=== PATIENT | female | born 1940 | race Hispanic/Latino ===

== ENCOUNTER 2019-04-27 18:39 | Emergency (ER) | payer MEDICARE ==
[~2019-04-27] VITALS: Ht 152.4 cm; Wt 79.8 kg
--- OUTSIDE RECORDS SUMMARY | 2019-04-27 18:42 | XMS REPORT ---
[facility] Address Unknown Phone Unavailable Care Team Providers Care Test Deck Supervisor Name Role Phone Unavailable Unavailable Payers Payer Name Policy Type Policy Number Effective Date Expiration Date Problems This patient has no known problems. Allergies, Adverse Reactions, Alerts Allergy Name Allergy Type Status Severity Reaction(s) Onset Date Inactive Date Treating Clinician Comments No Known Allergies DA Active U 2019-04-12 00:00:00 No Known Allergies DA Active U 2019-03-28 00:00:00 No Known Allergies DA Active U 2018-09-06 00:00:00 No Known Allergies DA Active U 2018-08-09 00:00:00 No Known Allergies DA Active U 2018-04-18 00:00:00 No Known Allergies DA Active U 2017-09-27 00:00:00 No Known Allergies DA Active U 2017-09-22 00:00:00 Medications This patient has no known medications. Results Test Description Test Time Test Comments Text Results Atomic Results Result Comments - CT ABD PELVIS W/CONT 2019-04-12 14:42:00 Name: JENARO MORA [facility] : 1940 Age/S: 78 / F [address] Unit #: [id number] Loc: [address] [address] Phys: Kenny Stephens DO Acct: [id number] Dis Date: Status: DEP ER PHONE #: [phone] Exam Date: 04/12/2019 1426 FAX #: [phone] Reason: LLQ pain/diarrhea EXAMS: CPT CODE: [id number] CT ABD PELVIS W/CONT 50217 REASON FOR EXAM: LLQ pain/diarrhea EXAM ORDER DATE: 04/12/2019 11:46 AM Ordering: Kenny Stephens DO Attending:Kenny Stephens DO Location:[facility] PROCEDURE: - CT ABD PELVIS W/CONT COMPARISON: FINDINGS: CT images of the abdomen and pelvis were obtained with IV and without oral contrast at 5mm. Dose modulation, iterative reconstruction, and/or weight based adjustment of the MA/KV was utilized to reduce the radiation dose to as low as reasonably achievable. Intravenous contrast: 100cc of Omnipaque 370. The spleen and pancreas are grossly within normal limits. The patient is status post cholecystectomy. 2 cm cyst in the midpole of the left kidney. The urinary bladder is unremarkable. The colon, small bowel, and stomach are within normal limits without evidence of obstruction. The appendix is not seen No evidence of free air or free fluid. The patient is status post hysterectomy IMPRESSION: Paraesophageal hernia. Subcentimeter lesions within the liver suggestive of hepatic cysts. Minimal stranding of the mesenteric fat in the left lower quadrant associated with minimal thickening of the wall of the sigmoid colon/left colon suggestive of acute diverticulitis without evidence of abscess Electronically Signed by Elba Dallas on 11/2018 at 1442 Reported and signed by: Joseph Dallas M.D. PAGE 1 Signed Report (CONTINUED) Name: JENARO MORA [facility] : 1940 Age/S: 78 / F [address] Unit #: [id number] Loc: [address] [address] Phys: Kenny Stephens DO Acct: [id number] Dis Date: Status: DEP ER PHONE #: [phone] Exam Date: 04/12/2019 1426 FAX #: [phone] Reason: LLQ pain/diarrhea EXAMS: CPT CODE: [id number] CT ABD PELVIS W/CONT 18116 <Continued> CC: Kenny Stephens DO Technologist:Chastity Gauthier,RT(R),CT CTDI: DLP: Trnscb Date/Time: 04/12/2019 (8322) Darrell Orig Print D/T: S: 04/12/2019 (4736) PAGE 2 Signed Report - CT ABD PELVIS W/CONT 2019-04-12 14:42:00 Name: JENARO MORA [facility] : 1940 Age/S: 78 / F [address] [facility] Unit #: [id number] Loc: [address] [address] Phys: Kenny Stephens DO Acct: [id number] Dis Date: Status: REG ER PHONE #: [phone] Exam Date: 04/12/2019 1426 FAX #: [phone] Reason: LLQ pain/diarrhea EXAMS: CPT CODE: [id number] CT ABD PELVIS W/CONT 39893 REASON FOR EXAM: LLQ pain/diarrhea EXAM ORDER DATE: 04/12/2019 11:46 AM Ordering: Kenny Stephens DO Attending:Kenny Stephens DO Location:[facility] PROCEDURE: - CT ABD PELVIS W/CONT COMPARISON: FINDINGS: CT images of the abdomen and pelvis were obtained with IV and without oral contrast at 5mm. Dose modulation, iterative reconstruction, and/or weight based adjustment of the MA/KV was utilized to reduce the radiation dose to as low as reasonably achievable. Intravenous contrast: 100cc of Omnipaque 370. The spleen and pancreas are grossly within normal limits. The patient is status post cholecystectomy. 2 cm cyst in the midpole of the left kidney. The urinary bladder is unremarkable. The colon, small bowel, and stomach are within normal limits without evidence of obstruction. The appendix is not seen No evidence of free air or free fluid. The patient is status post hysterectomy IMPRESSION: Paraesophageal hernia. Subcentimeter lesions within the liver suggestive of hepatic cysts. Minimal stranding of the mesenteric fat in the left lower quadrant associated with minimal thickening of the wall of the sigmoid colon/left colon suggestive of acute diverticulitis without evidence of abscess Electronically Signed by Elba Dallas on 11/2018 at 1442 Reported and signed by: Joseph Dallas M.D. PAGE 1 Signed Report (CONTINUED) Name: JENARO MORA [facility] : 1940 Age/S: 78 / F [address] Unit #: [id number] Loc: [address] [address] Phys: Kenny Stephens DO Acct: [id number] Dis Date: Status: REG ER PHONE #: [phone] Exam Date: 04/12/2019 1426 FAX #: [phone] Reason: LLQ pain/diarrhea EXAMS: CPT CODE: [id number] CT ABD PELVIS W/CONT 63846 <Continued> CC: Kenny Stephens DO Technologist:Chastity Gauthier,RT(R),CT CTDI: DLP: Trnscb Date/Time: 04/12/2019 (1442) MahoganyL Orig Print D/T: S: 04/12/2019 (3466) PAGE 2 Signed Report BASIC METABOLIC PANEL 2019-04-12 13:52:00 SODIUM (test code=NA) 144 mmol/L 136-145 POTASSIUM (test code=K) 3.6 mmol/L 3.5-5.1 CHLORIDE (test code=CL) 112.0 mmol/L 98-107 CARBON DIOXIDE (test code=CO2) 24.0 mmol/L 21-32 ANION GAP (test code=GAP) 11.6 10-20 GLUCOSE (test code=GLU) 97 mg/dL 74-106 BLOOD UREA NITROGEN (test code=BUN) 16 mg/dL 7-18 GLOMERULAR FILTRATION RATE (test code=GFR) 54 mL/min >=60 Estimated GFR by using Modified MDRD formula.Chronic kidney disease is defined as either kidney damageor GFR <60 mL/min/1.73 m2 for >3 months. CREATININE (test code=CREAT) 1.00 mg/dL 0.55-1.02 Note change in reference range due to change in reagent. BUN/CREATININE RATIO (test code=BUN/CREA) 15.8 10-20 CALCIUM (test code=CA) 8.4 mg/dL 8.5-10.1 .KN2 04/12/19 1217HEPATIC FUNCTION [id number] 13:52:00* Test Item Value Reference Range Comments TOTAL PROTEIN (test code=PROT) 6.7 gram/dL 6.4-8.2 ALBUMIN (test code=ALB) 3.0 g/dL 3.4-5.0 GLOBULIN (test code=GLOB) 3.7 gram/dL 2.7-4.2 ALBUMIN/GLOBULIN RATIO (test code=A/G) 0.8 0.75-1.50 BILIRUBIN TOTAL (test code=BILT) 0.50 mg/dL 0.0-1.0 BILIRUBIN DIRECT (test code=BILD) 0.14 mg/dL 0.0-0.20 SGOT/AST (test code=AST) 8 IUnit/L 15-37 SGPT/ALT (test code=ALT) 13 IUnit/L 12-78 ALKALINE PHOSPHATASE TOTAL (test code=ALKP) 98 IUnit/L 45-117 Note change in reference range due to change in reagent. .[facility] 04/12/19 [id number] 13:52:00* Test Item Value Reference Range Comments LIPASE (test code=LIP) 59 U/L 73.0-393.0 .[facility] 04/12/19 [id number] 13:52:00* Test Item Value Reference Range Comments TROPONIN-I (test code=TROPI) <0.015 ng/mL 0-0.045 .[facility] 04/12/197BASIC METABOLIC [id number] 13:16:00* Test Item Value Reference Range Comments SODIUM (test code=NA) 144 mmol/L 136-145 POTASSIUM (test code=K) 3.6 mmol/L 3.5-5.1 CHLORIDE (test code=CL) 112.0 mmol/L 98-107 CARBON DIOXIDE (test code=CO2) mmol/L 21-32 ANION GAP (test code=GAP) 10-20 GLUCOSE (test code=GLU) mg/dL 74-106 BLOOD UREA NITROGEN (test code=BUN) mg/dL 7-18 GLOMERULAR FILTRATION RATE (test code=GFR) mL/min >=60 CREATININE (test code=CREAT) mg/dL 0.55-1.02 BUN/CREATININE RATIO (test code=BUN/CREA) 10-20 CALCIUM (test code=CA) mg/dL 8.5-10.1 .[facility] 04/12/19 1217HEPATIC FUNCTION [id number] 13:16:00* Test Item Value Reference Range Comments TOTAL PROTEIN (test code=PROT) gram/dL 6.4-8.2 ALBUMIN (test code=ALB) g/dL 3.4-5.0 GLOBULIN (test code=GLOB) gram/dL 2.7-4.2 ALBUMIN/GLOBULIN RATIO (test code=A/G) 0.75-1.50 BILIRUBIN TOTAL (test code=BILT) mg/dL 0.0-1.0 BILIRUBIN DIRECT (test code=BILD) mg/dL 0.0-0.20 SGOT/AST (test code=AST) IUnit/L 15-37 SGPT/ALT (test code=ALT) IUnit/L 12-78 ALKALINE PHOSPHATASE TOTAL (test code=ALKP) IUnit/L 45-117 .[facility] 04/12/19 [id number] 13:16:00* Test Item Value Reference Range Comments LIPASE (test code=LIP) U/L 73.0-393.0 .[facility] 04/12/[id number] 13:16:00* Test Item Value Reference Range Comments TROPONIN-I (test code=TROPI) ng/mL 0-0.045 .[facility] 04/12/197URINALYSIS [id number] 12:13:00* Test Item Value Reference Range Comments UA COLOR (test code=COLU) Light-Yellow YELLOW UA APPEARANCE (test code=APPU) Cloudy CLEAR UA GLUCOSE DIPSTICK (test code=DGLUU) NEGATIVE mg/dL NEGATIVE UA BILIRUBIN DIPSTICK (test code=BILU) NEGATIVE mg/dL NEGATIVE UA KETONE DIPSTICK (test code=KETU) NEGATIVE mg/dL NEGATIVE UA SPECIFIC GRAVITY (test code=SGU) 1.011 1.001-1.035 UA BLOOD DIPSTICK (test code=JEFF) 0.1 mg/dL (1+) mg/dL NEGATIVE UA PH DIPSTICK (test code=JAYESH) 5.5 5.0-8.0 UA PROTEIN DIPSTICK (test code=PROU) NEGATIVE mg/dL NEGATIVE UA UROBILINIOGEN DIPSTICK (test code=URO) Normal mg/dL NEGATIVE UA NITRITE DIPSTICK (test code=TRICIA) NEGATIVE NEGATIVE UA LEUKOCYTE ESTERASE W REFLEX (test code=LEUUR) 250 Hernan/uL (2+) Hernan/uL NEGATIVE UA WBC (test code=WBCU) 11-20 per HPF 0-5 UA RBC (test code=RBCU) 0-2 #/HPF 0-5 UA EPITHELIAL CELLS (test code=EPIU) FEW per HPF FEW UA BACTERIA (test code=BACU) MODERATE #/HPF NONE UA MUCUS (test code=MUCU) FEW #/LPF FEW Urine Source? Clean CatchCBC W/O [id number] 11:54:00* Test Item Value Reference Range Comments WHITE BLOOD CELL (test code=WBC) 6.5 K/mm3 4.5-12.5 RED BLOOD CELL (test code=RBC) 4.19 mill/mm3 3.7-5.2 HEMOGLOBIN (test code=HGB) 12.3 gram/dL 11.5-15.5 HEMATOCRIT (test code=HCT) 36.3 % 36.0-46.0 MEAN CELL VOLUME (test code=MCV) 86.6 fL 80-98 MEAN CELL HGB (test code=MCH) 29.4 picogram 27.0-33.0 MEAN CELL HGB CONCETRATION (test code=MCHC) 33.9 gram/dL 33.0-36.0 RED CELL DISTRIBUTION WIDTH (test code=RDW) 13.5 % 11.6-16.2 PLATELET COUNT (test code=PLT) 216 K/mm3 150-450 MEAN PLATELET VOLUME (test code=MPV) 10.5 fL 6.7-11.0 CBC W/O [id number] 11:43:00* Test Item Value Reference Range Comments WHITE BLOOD CELL (test code=WBC) K/mm3 4.5-12.5 RED BLOOD CELL (test code=RBC) mill/mm3 3.7-5.2 HEMOGLOBIN (test code=HGB) 12.3 gram/dL 11.5-15.5 HEMATOCRIT (test code=HCT) 36.3 % 36.0-46.0 MEAN CELL VOLUME (test code=MCV) fL 80-98 MEAN CELL HGB (test code=MCH) picogram 27.0-33.0 MEAN CELL HGB CONCETRATION (test code=MCHC) gram/dL 33.0-36.0 RED CELL DISTRIBUTION WIDTH (test code=RDW) % 11.6-16.2 PLATELET COUNT (test code=PLT) K/mm3 150-450 MEAN PLATELET VOLUME (test code=MPV) fL 6.7-11.0 [id number] 11:59:00* Test Item Value Reference Range Comments GLUBED (test code=GLUBED) 93 mg/dL 74-106 Performed by certified food production machine operator at [facility] - CT HEAD/BRAIN W/O [id number] 11:58:00 Name: JENARO MORA [facility] : 1940 Age/S: 78 / F [address] Unit #: [id number] Loc: [address] [address] Phys: Heidy Russell MD Acct: [id number] Dis Date: 03/29/2019 Status: DIS IN PHONE #: [phone] Exam Date: 03/28/2019 1147 FAX #: [phone] Reason: dizziness EXAMS: CPT CODE: [id number] CT HEAD/BRAIN W/O CONT 72115 HISTORY: Dizziness. COMPARISON: None available. CT brain without contrast: Automated exposure control. No acute intracranial bleeds or extra-axial collections are noted. No acute territorial vascular infarction is noted. The sulci, gyri, ventricles and subarachnoid spaces and the basilar cisterns are normal for patient's age. No herniation or hydrocephalus or midline shift is noted. Mild periventricular ischemic gliosis is noted. Age-appropriate atrophy is noted as well. Portions of the visualized paranasal sinuses are normal. Mild otomastoiditis on the right side. No obvious bony calvarial defect is noted. IMPRESSION: No acute intracranial bleeds or extra-axial collections. No acute territorial vascular infarction. No herniation or hydrocephalus or midline shift. Chronic white matter ischemic disease and atrophy . at 1158 Reported and signed by: Panchito Davis M.D. CC: Heidy Villarreal MD; Jeromy Baez MD Technologist:Loly Gauthier RT(R)(CT) CTDI: DLP: Trnscb Date/Time: 03/28/2019 (1158) t.[email or web address] .TH4 Orig Print D/T: S: 03/28/2019 (2099) PAGE 1 Signed Report - CT HEAD/BRAIN W/O [id number] 11:58:00 Name: JENARO MORA [facility] : 1940 Age/S: 78 / F [address] Unit #: [id number] Loc: [address] [address] Phys: Heidy Russell MD Acct: [id number] Dis Date: Status: REG ER PHONE #: [phone] Exam Date: 03/28/2019 1147 FAX #: [phone] Reason: dizziness EXAMS: CPT CODE: [id number] CT HEAD/BRAIN W/O CONT 90301 HISTORY: Dizziness. COMPARISON: None available. CT brain without contrast: Automated exposure control. No acute intracranial bleeds or extra-axial collections are noted. No acute territorial vascular infarction is noted. The sulci, gyri, ventricles and subarachnoid spaces and the basilar cisterns are normal for patient's age. No herniation or hydrocephalus or midline shift is noted. Mild periventricular ischemic gliosis is noted. Age-appropriate atrophy is noted as well. Portions of the visualized paranasal sinuses are normal. Mild otomastoiditis on the right side. No obvious bony calvarial defect is noted. IMPRESSION: No acute intracranial bleeds or extra-axial collections. No acute territorial vascular infarction. No herniation or hydrocephalus or midline shift. Chronic white matter ischemic disease and atrophy . at 1158 Reported and signed by: Panchito Davis M.D. CC: Heidy Russell MD; Jeromy Baez MD Technologist:Loly Gauthier RT(R)(CT) CTDI: DLP: Trnscb Date/Time: 03/28/2019 (1968) [email or web address] Orig Print D/T: S: 03/28/2019 (2242) PAGE 1 Signed Report BASIC METABOLIC [id number] 11:52:00* Test Item Value Reference Range Comments SODIUM (test code=NA) 141 mmol/L 136-145 POTASSIUM (test code=K) 3.7 mmol/L 3.5-5.1 CHLORIDE (test code=CL) 109.0 mmol/L 98-107 CARBON DIOXIDE (test code=CO2) 23.0 mmol/L 21-32 ANION GAP (test code=GAP) 12.7 10-20 GLUCOSE (test code=GLU) 122 mg/dL 74-106 BLOOD UREA NITROGEN (test code=BUN) 19 mg/dL 7-18 GLOMERULAR FILTRATION RATE (test code=GFR) > 60 mL/min >=60 Estimated GFR by using Modified MDRD formula.Chronic kidney disease is defined as either kidney damageor GFR <60 mL/min/1.73 m2 for >3 months. CREATININE (test code=CREAT) 0.90 mg/dL 0.55-1.02 Note change in reference range due to change in reagent. BUN/CREATININE RATIO (test code=BUN/CREA) 21.1 10-20 CALCIUM (test code=CA) 9.1 mg/dL 8.5-10.1 [id number] 11:52:00* Test Item Value Reference Range Comments TROPONIN-I (test code=TROPI) <0.015 ng/mL 0-0.045 URINALYSIS [id number] 11:52:00* Test Item Value Reference Range Comments UA COLOR (test code=COLU) Light-Yellow YELLOW UA APPEARANCE (test code=APPU) Cloudy CLEAR UA GLUCOSE DIPSTICK (test code=DGLUU) NEGATIVE mg/dL NEGATIVE UA BILIRUBIN DIPSTICK (test code=BILU) NEGATIVE mg/dL NEGATIVE UA KETONE DIPSTICK (test code=KETU) NEGATIVE mg/dL NEGATIVE UA SPECIFIC GRAVITY (test code=SGU) 1.014 1.001-1.035 UA BLOOD DIPSTICK (test code=JEFF) 0.03 mg/dL (Trace) mg/dL NEGATIVE UA PH DIPSTICK (test code=JAYESH) 6.5 5.0-8.0 UA PROTEIN DIPSTICK (test code=PROU) NEGATIVE mg/dL NEGATIVE UA UROBILINIOGEN DIPSTICK (test code=URO) Normal mg/dL NEGATIVE UA NITRITE DIPSTICK (test code=TRICIA) POSITIVE NEGATIVE UA LEUKOCYTE ESTERASE W REFLEX (test code=LEUUR) 250 Hernan/uL (2+) Hernan/uL NEGATIVE UA WBC (test code=WBCU) 6-10 per HPF 0-5 UA RBC (test code=RBCU) 0-2 #/HPF 0-5 UA EPITHELIAL CELLS (test code=EPIU) MOD per HPF FEW UA BACTERIA (test code=BACU) MANY #/HPF NONE UA MUCUS (test code=MUCU) FEW #/LPF FEW Urine Source? Clean CatchBASIC METABOLIC [id number] 11:41:00* Test Item Value Reference Range Comments SODIUM (test code=NA) 141 mmol/L 136-145 POTASSIUM (test code=K) 3.7 mmol/L 3.5-5.1 CHLORIDE (test code=CL) 109.0 mmol/L 98-107 CARBON DIOXIDE (test code=CO2) mmol/L 21-32 ANION GAP (test code=GAP) 10-20 GLUCOSE (test code=GLU) mg/dL 74-106 BLOOD UREA NITROGEN (test code=BUN) mg/dL 7-18 GLOMERULAR FILTRATION RATE (test code=GFR) mL/min >=60 CREATININE (test code=CREAT) mg/dL 0.55-1.02 BUN/CREATININE RATIO (test code=BUN/CREA) 10-20 CALCIUM (test code=CA) mg/dL 8.5-10.1 [id number] 11:41:00* Test Item Value Reference Range Comments TROPONIN-I (test code=TROPI) ng/mL 0-0.045 CBC W/O [id number] 11:30:00* Test Item Value Reference Range Comments WHITE BLOOD CELL (test code=WBC) 6.0 K/mm3 4.5-12.5 RED BLOOD CELL (test code=RBC) 4.84 mill/mm3 3.7-5.2 HEMOGLOBIN (test code=HGB) 14.0 gram/dL 11.5-15.5 HEMATOCRIT (test code=HCT) 41.2 % 36.0-46.0 MEAN CELL VOLUME (test code=MCV) 85.1 fL 80-98 MEAN CELL HGB (test code=MCH) 28.9 picogram 27.0-33.0 MEAN CELL HGB CONCETRATION (test code=MCHC) 34.0 gram/dL 33.0-36.0 RED CELL DISTRIBUTION WIDTH (test code=RDW) 13.3 % 11.6-16.2 PLATELET COUNT (test code=PLT) 276 K/mm3 150-450 MEAN PLATELET VOLUME (test code=MPV) 10.2 fL 6.7-11.0 URINALYSIS [id number] 11:18:00* Test Item Value Reference Range Comments UA COLOR (test code=COLU) Light-Yellow YELLOW UA APPEARANCE (test code=APPU) Cloudy CLEAR UA GLUCOSE DIPSTICK (test code=DGLUU) NEGATIVE mg/dL NEGATIVE UA BILIRUBIN DIPSTICK (test code=BILU) NEGATIVE mg/dL NEGATIVE UA KETONE DIPSTICK (test code=KETU) NEGATIVE mg/dL NEGATIVE UA SPECIFIC GRAVITY (test code=SGU) 1.014 1.001-1.035 UA BLOOD DIPSTICK (test code=JEFF) 0.03 mg/dL (Trace) mg/dL NEGATIVE UA PH DIPSTICK (test code=JAYESH) 6.5 5.0-8.0 UA PROTEIN DIPSTICK (test code=PROU) NEGATIVE mg/dL NEGATIVE UA UROBILINIOGEN DIPSTICK (test code=URO) Normal mg/dL NEGATIVE UA NITRITE DIPSTICK (test code=TRICIA) POSITIVE NEGATIVE UA LEUKOCYTE ESTERASE W REFLEX (test code=LEUUR) 250 Hernan/uL (2+) Hernan/uL NEGATIVE UA WBC (test code=WBCU) per HPF 0-5 UA RBC (test code=RBCU) per HPF 0-5 UA EPITHELIAL CELLS (test code=EPIU) per HPF Few UA BACTERIA (test code=BACU) per HPF NONE Urine Source? Clean CatchBASIC METABOLIC [id number] 07:10:00* Test Item Value Reference Range Comments SODIUM (test code=NA) 143 mmol/L 136-145 POTASSIUM (test code=K) 3.7 mmol/L 3.5-5.1 CHLORIDE (test code=CL) 113.0 mmol/L 98-107 CARBON DIOXIDE (test code=CO2) 21.0 mmol/L 21-32 ANION GAP (test code=GAP) 12.7 10-20 GLUCOSE (test code=GLU) 98 mg/dL 74-106 BLOOD UREA NITROGEN (test code=BUN) 10 mg/dL 7-18 GLOMERULAR FILTRATION RATE (test code=GFR) > 60 mL/min >=60 Estimated GFR by using Modified MDRD formula.Chronic kidney disease is defined as either kidney damageor GFR <60 mL/min/1.73 m2 for >3 months. CREATININE (test code=CREAT) 0.80 mg/dL 0.55-1.02 Note change in reference range due to change in reagent. BUN/CREATININE RATIO (test code=BUN/CREA) 12.9 10-20 CALCIUM (test code=CA) 8.5 mg/dL 8.5-10.1 CBC W/AUTO [id number] 06:30:00* Test Item Value Reference Range Comments WHITE BLOOD CELL (test code=WBC) 5.0 K/mm3 4.5-12.5 RED BLOOD CELL (test code=RBC) 4.16 mill/mm3 3.7-5.2 HEMOGLOBIN (test code=HGB) 12.0 gram/dL 11.5-15.5 HEMATOCRIT (test code=HCT) 36.2 % 36.0-46.0 MEAN CELL VOLUME (test code=MCV) 87.0 fL 80-98 MEAN CELL HGB (test code=MCH) 28.8 picogram 27.0-33.0 MEAN CELL HGB CONCETRATION (test code=MCHC) 33.1 gram/dL 33.0-36.0 RED CELL DISTRIBUTION WIDTH (test code=RDW) 13.6 % 11.6-16.2 RED CELL DISTRIBUTION WIDTH SD (test code=RDW-SD) 42.8 fL 37.0-51.0 PLATELET COUNT (test code=PLT) 206 K/mm3 150-450 MEAN PLATELET VOLUME (test code=MPV) 10.4 fL 6.7-11.0 NEUTROPHIL % (test code=NT%) 57.1 % 39.0-69.0 IMMATURE GRANULOCYTE % (test code=IG%) 0.6 % 0.0-5.0 LYMPHOCYTE % (test code=LY%) 24.3 % 25.0-55.0 MONOCYTE % (test code=MO%) 11.0 % 0.0-10.0 EOSINOPHIL % (test code=EO%) 6.2 % 0.0-5.0 BASOPHIL % (test code=BA%) 0.8 % 0.0-1.0 NUCLEATED RBC % (test code=NRBC%) 0.0 % 0-0 NEUTROPHIL # (test code=NT#) 2.84 K/mm3 1.8-7.7 IMMATURE GRANULOCYTE # (test code=IG#) 0.03 x10 3/uL 0-0.03 LYMPHOCYTE # (test code=LY#) 1.21 K/mm3 1.0-5.0 MONOCYTE # (test code=MO#) 0.55 K/mm3 0-0.8 EOSINOPHIL # (test code=EO#) 0.31 K/mm3 0.0-0.5 BASOPHIL # (test code=BA#) 0.04 K/mm3 0.0-0.2 NUCLEATED RBC # (test code=NRBC#) 0.00 K/mm3 0.0-0.1 MANUAL DIFF REQUIRED (test code=MDIFF) NO CBC W/AUTO [id number] 06:25:00* Test Item Value Reference Range Comments WHITE BLOOD CELL (test code=WBC) K/mm3 4.5-12.5 RED BLOOD CELL (test code=RBC) mill/mm3 3.7-5.2 HEMOGLOBIN (test code=HGB) 12.0 gram/dL 11.5-15.5 HEMATOCRIT (test code=HCT) 36.2 % 36.0-46.0 MEAN CELL VOLUME (test code=MCV) fL 80-98 MEAN CELL HGB (test code=MCH) picogram 27.0-33.0 MEAN CELL HGB CONCETRATION (test code=MCHC) gram/dL 33.0-36.0 RED CELL DISTRIBUTION WIDTH (test code=RDW) % 11.6-16.2 RED CELL DISTRIBUTION WIDTH SD (test code=RDW-SD) fL 37.0-51.0 PLATELET COUNT (test code=PLT) K/mm3 150-450 MEAN PLATELET VOLUME (test code=MPV) fL 6.7-11.0 NEUTROPHIL % (test code=NT%) % 39.0-69.0 IMMATURE GRANULOCYTE % (test code=IG%) % 0.0-5.0 LYMPHOCYTE % (test code=LY%) % 25.0-55.0 MONOCYTE % (test code=MO%) % 0.0-10.0 EOSINOPHIL % (test code=EO%) % 0.0-5.0 BASOPHIL % (test code=BA%) % 0.0-1.0 NEUTROPHIL # (test code=NT#) K/mm3 1.8-7.7 LYMPHOCYTE # (test code=LY#) K/mm3 1.0-5.0 MONOCYTE # (test code=MO#) K/mm3 0-0.8 EOSINOPHIL # (test code=EO#) K/mm3 0.0-0.5 BASOPHIL # (test code=BA#) K/mm3 0.0-0.2 [id number] 02:16:00* Test Item Value Reference Range Comments TROPONIN-I (test code=TROPI) <0.015 ng/mL 0-0.045 COMMENTS TO LCAC OPERATOR: COLLECT 3 HOURS AFTER PREVIOUS [id number] 22:19:00* Test Item Value Reference Range Comments TROPONIN-I (test code=TROPI) <0.015 ng/mL 0-0.045 COMMENTS TO LCAC OPERATOR: COLLECT 3 HOURS AFTER PREVIOUS SAMPLEB-TYPE NATRIURETIC [id number] 20:20:00* Test Item Value Reference Range Comments B-TYPE NATRIURETIC PEPTIDE (test code=BNP) 57.22 pgram/mL 0-100 CBC W/O [id number] 18:16:00* Test Item Value Reference Range Comments WHITE BLOOD CELL (test code=WBC) 8.6 K/mm3 4.5-12.5 RED BLOOD CELL (test code=RBC) 4.52 mill/mm3 3.7-5.2 HEMOGLOBIN (test code=HGB) 13.3 gram/dL 11.5-15.5 HEMATOCRIT (test code=HCT) 39.9 % 36.0-46.0 MEAN CELL VOLUME (test code=MCV) 88.3 fL 80-98 MEAN CELL HGB (test code=MCH) 29.4 picogram 27.0-33.0 MEAN CELL HGB CONCETRATION (test code=MCHC) 33.3 gram/dL 33.0-36.0 RED CELL DISTRIBUTION WIDTH (test code=RDW) 13.7 % 11.6-16.2 PLATELET COUNT (test code=PLT) 238 K/mm3 150-450 MEAN PLATELET VOLUME (test code=MPV) 10.7 fL 6.7-11.0 - CT ABD PELVIS [id number] 17:56:00 Name: JENARO MORA [facility] : 1940 Age/S: 78 / F Harry Espinal Unit #: [id number] Loc: [address] [address] Phys: Ancelmo Hilario MD Acct: [id number] Dis Date: Status: REG ER PHONE #: [phone] Exam Date: 01/15/20191741 FAX #: [phone] Reason: abdominal pain EXAMS: CPT CODE: [id number] CT ABD PELVIS W/CONT 16468 EXAM: CT of the abdomen and pelvis with contrast; INFORMATION: Abdominal pain; TECHNIQUE AND FINDINGS: CT dose reduction protocol; 5 mm cuts through the abdomen and pelvis during and after intravenous infusion of contrast material. There are multiple sigmoid diverticula and there is mild wall thickening of the sigmoid without evidence of abscess information, perforation or bowel obstruction. The kidneys are of normal size and shape and without hydronephrosis. Several small cysts are seen bilaterally up to 15 mm in diameter. These include cortical and parapelvic cysts. Liver, spleen and pancreas are of normal size and shape; no focal lesions. Status post cholecystectomy; no biliary dilatation. Adrenal glands are unremarkable. No pelvic mass lesions. Status post hysterectomy with surgical clips posterior to the bladder. Scans through the lower chest show mild atelectatic changes and also demonstrate a moderately large hiatal hernia. IMPRESSION: 1. FINDINGS are suspicious for mild sigmoid diverticulitis without evidence of abscess formation, perforation or bowel obstruction. 2. Small bilateral renal cysts including parapelvic cysts. 3. Hiatal hernia. at 1756 Reported and signed by: Catalino Swain M.D. CC: Ancelmo Hilario MD Technologist:Rosy Morrell RT(R),CT; CTDI: DLP: Trnscb Date/Time: 01/15/2019 (1411) [email or web address] Orig Print D/T: S: 01/15/2019 (3741) PAGE 1 Signed Report BASIC METABOLIC [id number] 17:00:00* Test Item Value Reference Range Comments SODIUM (test code=NA) 143 mmol/L 136-145 POTASSIUM (test code=K) 3.8 mmol/L 3.5-5.1 CHLORIDE (test code=CL) 110.0 mmol/L 98-107 CARBON DIOXIDE (test code=CO2) 22.0 mmol/L 21-32 ANION GAP (test code=GAP) 14.8 10-20 GLUCOSE (test code=GLU) 91 mg/dL 74-106 BLOOD UREA NITROGEN (test code=BUN) 20 mg/dL 7-18 GLOMERULAR FILTRATION RATE (test code=GFR) 48 mL/min >=60 Estimated GFR by using Modified MDRD formula.Chronic kidney disease is defined as either kidney damageor GFR <60 mL/min/1.73 m2 for >3 months. CREATININE (test code=CREAT) 1.10 mg/dL 0.55-1.02 Note change in reference range due to change in reagent. BUN/CREATININE RATIO (test code=BUN/CREA) 18.0 10-20 CALCIUM (test code=CA) 9.4 mg/dL 8.5-10.1 [id number] 17:00:00* Test Item Value Reference Range Comments TROPONIN-I (test code=TROPI) <0.015 ng/mL 0-0.045 HEPATIC FUNCTION [id number] 17:00:00* Test Item Value Reference Range Comments TOTAL PROTEIN (test code=PROT) 7.5 gram/dL 6.4-8.2 ALBUMIN (test code=ALB) 3.5 g/dL 3.4-5.0 GLOBULIN (test code=GLOB) 4.0 gram/dL 2.7-4.2 ALBUMIN/GLOBULIN RATIO (test code=A/G) 0.9 0.75-1.50 BILIRUBIN TOTAL (test code=BILT) 0.40 mg/dL 0.0-1.0 BILIRUBIN DIRECT (test code=BILD) 0.10 mg/dL 0.0-0.20 SGOT/AST (test code=AST) 15 IUnit/L 15-37 SGPT/ALT (test code=ALT) 18 IUnit/L 12-78 ALKALINE PHOSPHATASE TOTAL (test code=ALKP) 118 IUnit/L 45-117 Note change in reference range due to change in reagent. [id number] 17:00:00* Test Item Value Reference Range Comments LIPASE (test code=LIP) 67 U/L 73.0-393.0 BASIC METABOLIC [id number] 16:46:00* Test Item Value Reference Range Comments SODIUM (test code=NA) 143 mmol/L 136-145 POTASSIUM (test code=K) 3.8 mmol/L 3.5-5.1 CHLORIDE (test code=CL) 110.0 mmol/L 98-107 CARBON DIOXIDE (test code=CO2) mmol/L 21-32 ANION GAP (test code=GAP) 10-20 GLUCOSE (test code=GLU) mg/dL 74-106 BLOOD UREA NITROGEN (test code=BUN) mg/dL 7-18 GLOMERULAR FILTRATION RATE (test code=GFR) mL/min >=60 CREATININE (test code=CREAT) mg/dL 0.55-1.02 BUN/CREATININE RATIO (test code=BUN/CREA) 10-20 CALCIUM (test code=CA) mg/dL 8.5-10.1 [id number] 16:46:00* Test Item Value Reference Range Comments TROPONIN-I (test code=TROPI) ng/mL 0-0.045 - XR CHEST 1 [id number] 14:23:00 FAX: Ancelmo Hilario MD [place]: St: PRE Name: Iona JENARO CARTER [facility] : [birth year] Age/S: 78/F [address] [facility] Unit #: [id number] Loc: [place] [address] Phys: Ancelmo Hilario MD Acct: [id number] Dis Date: Status: PRE ER PHONE #: [phone] Exam Date: 01/15/2019 1416 FAX #: [phone] Reason: CHEST PAIN EXAMS: CPT CODE: [id number] XR CHEST 1 V 54479 REASON FOR EXAM: CHEST PAIN EXAM ORDER DATE: 01/15/2019 2:02 PM Ordering Elba: Ancelmo Hilario MD PROCEDURE: - XR CHEST 1 V COMPARISON: 11/16/2018 FINDINGS: Portable AP frontal view of the chest obt ained at 2:14 PM shows clear lungs without evidence of consolidation. Ther e is no evidence of effusion. The heart size is minimally enlarged. Pulmon nayeli vasculatures are unremarkable. IMPRESSION: No active disease. at 5053 Reported and signed by: Joseph Dallas M.D. CC: Ancelmo Hilario MD Technologist: Rony Melo RT(R); MOHSEN PETERS RT(R) Trnscrd Date/Time/By: 01/05 (1429) : By: Mainor.VTL Orig Print D/T: S: 01/15/2019 (7796) PAGE 1 Signed Report BASIC METABOLIC [id number] 20:05:00* Test Item Value Reference Range Comments SODIUM (test code=NA) 139 mmol/L 136-145 POTASSIUM (test code=K) 3.6 mmol/L 3.5-5.1 CHLORIDE (test code=CL) 109.0 mmol/L 98-107 CARBON DIOXIDE (test code=CO2) 23.0 mmol/L 21-32 ANION GAP (test code=GAP) 10.6 10-20 GLUCOSE (test code=GLU) 118 mg/dL 74-106 BLOOD UREA NITROGEN (test code=BUN) 18 mg/dL 7-18 GLOMERULAR FILTRATION RATE (test code=GFR) 54 mL/min >=60 Estimated GFR by using Modified MDRD formula.Chronic kidney disease is defined as either kidney damageor GFR <60 mL/min/1.73 m2 for >3 months. CREATININE (test code=CREAT) 1.00 mg/dL 0.55-1.02 Note change in reference range due to change in reagent. BUN/CREATININE RATIO (test code=BUN/CREA) 18.0 10-20 CALCIUM (test code=CA) 8.4 mg/dL 8.5-10.1 HEPATIC FUNCTION [id number] 20:05:00* Test Item Value Reference Range Comments TOTAL PROTEIN (test code=PROT) 7.3 gram/dL 6.4-8.2 ALBUMIN (test code=ALB) 3.6 g/dL 3.4-5.0 GLOBULIN (test code=GLOB) 3.7 gram/dL 2.7-4.2 ALBUMIN/GLOBULIN RATIO (test code=A/G) 1.0 0.75-1.50 BILIRUBIN TOTAL (test code=BILT) 0.30 mg/dL 0.0-1.0 BILIRUBIN DIRECT (test code=BILD) 0.08 mg/dL 0.0-0.20 SGOT/AST (test code=AST) 15 IUnit/L 15-37 SGPT/ALT (test code=ALT) 20 IUnit/L 12-78 ALKALINE PHOSPHATASE TOTAL (test code=ALKP) 115 IUnit/L 45-117 Note change in reference range due to change in reagent. [id number] 20:05:00* Test Item Value Reference Range Comments LIPASE (test code=LIP) 84 U/L 73.0-393.0 BASIC METABOLIC [id number] 20:01:00* Test Item Value Reference Range Comments SODIUM (test code=NA) 139 mmol/L 136-145 POTASSIUM (test code=K) 3.6 mmol/L 3.5-5.1 CHLORIDE (test code=CL) 109.0 mmol/L 98-107 CARBON DIOXIDE (test code=CO2) mmol/L 21-32 ANION GAP (test code=GAP) 10-20 GLUCOSE (test code=GLU) mg/dL 74-106 BLOOD UREA NITROGEN (test code=BUN) mg/dL 7-18 GLOMERULAR FILTRATION RATE (test code=GFR) mL/min >=60 CREATININE (test code=CREAT) mg/dL 0.55-1.02 BUN/CREATININE RATIO (test code=BUN/CREA) 10-20 CALCIUM (test code=CA) mg/dL 8.5-10.1 HEPATIC FUNCTION [id number] 20:01:00* Test Item Value Reference Range Comments TOTAL PROTEIN (test code=PROT) gram/dL 6.4-8.2 ALBUMIN (test code=ALB) g/dL 3.4-5.0 GLOBULIN (test code=GLOB) gram/dL 2.7-4.2 ALBUMIN/GLOBULIN RATIO (test code=A/G) 0.75-1.50 BILIRUBIN TOTAL (test code=BILT) mg/dL 0.0-1.0 BILIRUBIN DIRECT (test code=BILD) mg/dL 0.0-0.20 SGOT/AST (test code=AST) IUnit/L 15-37 SGPT/ALT (test code=ALT) IUnit/L 12-78 ALKALINE PHOSPHATASE TOTAL (test code=ALKP) IUnit/L 45-117 [id number] 20:01:00* Test Item Value Reference Range Comments LIPASE (test code=LIP) U/L 73.0-393.0 URINALYSIS [id number] 19:56:00* Test Item Value Reference Range Comments UA COLOR (test code=COLU) LIGHT YELLOW YELLOW UA APPEARANCE (test code=APPU) CLEAR CLEAR UA GLUCOSE DIPSTICK (test code=DGLUU) NEGATIVE mg/dL NEGATIVE UA BILIRUBIN DIPSTICK (test code=BILU) NEGATIVE mg/dL NEGATIVE UA KETONE DIPSTICK (test code=KETU) NEGATIVE mg/dL NEGATIVE UA SPECIFIC GRAVITY (test code=SGU) 1.017 1.001-1.035 UA BLOOD DIPSTICK (test code=JEFF) 2+ (Moderate) mg/dL NEGATIVE UA PH DIPSTICK (test code=JAYESH) 5.0 5.0-8.0 UA PROTEIN DIPSTICK (test code=PROU) NEGATIVE mg/dL NEGATIVE UA UROBILINIOGEN DIPSTICK (test code=URO) NEGATIVE mg/dL NEGATIVE UA NITRITE DIPSTICK (test code=TRICIA) NEGATIVE NEGATIVE UA LEUKOCYTE ESTERASE W REFLEX (test code=LEUUR) NEGATIVE Hernan/uL NEGATIVE UA WBC (test code=WBCU) 0-5 per HPF 0-5 UA RBC (test code=RBCU) 0-2 #/HPF 0-5 UA EPITHELIAL CELLS (test code=EPIU) FEW per HPF FEW UA BACTERIA (test code=BACU) FEW #/HPF NONE UA MUCUS (test code=MUCU) FEW #/LPF FEW Urine Source? Clean CatchURINALYSIS [id number] 19:50:00* Test Item Value Reference Range Comments UA COLOR (test code=COLU) LIGHT YELLOW YELLOW UA APPEARANCE (test code=APPU) CLEAR CLEAR UA GLUCOSE DIPSTICK (test code=DGLUU) NEGATIVE mg/dL NEGATIVE UA BILIRUBIN DIPSTICK (test code=BILU) NEGATIVE mg/dL NEGATIVE UA KETONE DIPSTICK (test code=KETU) NEGATIVE mg/dL NEGATIVE UA SPECIFIC GRAVITY (test code=SGU) 1.017 1.001-1.035 UA BLOOD DIPSTICK (test code=JEFF) 2+ (Moderate) mg/dL NEGATIVE UA PH DIPSTICK (test code=JAYESH) 5.0 5.0-8.0 UA PROTEIN DIPSTICK (test code=PROU) NEGATIVE mg/dL NEGATIVE UA UROBILINIOGEN DIPSTICK (test code=URO) NEGATIVE mg/dL NEGATIVE UA NITRITE DIPSTICK (test code=TRICIA) NEGATIVE NEGATIVE UA LEUKOCYTE ESTERASE W REFLEX (test code=LEUUR) NEGATIVE Hernan/uL NEGATIVE UA WBC (test code=WBCU) per HPF 0-5 Urine Source? Clean Catch- CT ABD PELVIS W/O [id number] 19:40:00 Name: JENARO MORA [facility] : 1940 Age/S: 77 / F [address] [facility] Unit #: [id number] Loc: [address] [address] Phys: Kenny Stephens DO Acct: [id number] Dis Date: Status: REG ER PHONE #: [phone] Exam Date: 09/06/2018 1916 FAX #: [phone] Reason: Right flank pain EXAMS: CPT CODE: [id number] CT ABD PELVIS W/O CONT 43122 REASON FOR EXAM: Right flank pain EXAM ORDER DATE: 09/06/2018 7:04 PM Michael amaro M.D.: Kenny Stephens DO PROCEDURE: - CT ABD PELVIS W/O CON T COMPARISON: FINDINGS: CT images of the abdomen and pelvis were obtained without IV and without oral contrast at 5mm. Dose mo dulation, iterative reconstruction, and/or weight based adjustment of the MA/KV was utilized to reduce the radiation dose to as low as reasonably achievable. The liver, spleen, and pancreas are grossly within normal limits. The patient is status post cholecystectomy The right kidney is unremarkable The urinary bladder is unremarkable. The colon, small bowel, and stomach are within normal limits without evidence of obstruction. The appendix is unremarkable No evidence of free air or free fluid. The patient is status post hysterectomy. Mild scoliosis of the thoracolumbar spine IMPRESSION: 1. 1 cm cyst in the left kidney. 2. Paraesophageal hernia Elec tronically Signed by Elba Dallas on 09/06/2018 at 1940 Reported and signed by: Joseph Dallas M.D. CC: Kenny Stephens DO Technologist:Tracey Crocker RT(R) CTDI: DLP: Trnscb Date/Time: 09/06/2018 (1939) EdmondVTL Orig Print D/T: S: 09/06/2018 (1943) CTDI: DLP: PAGE 1 Signed Report CBC W/O DIFF 2018-09-06 19:13:00* Test Item Value Reference Range Comments WHITE BLOOD CELL (test code=WBC) 6.7 K/mm3 4.5-12.5 RED BLOOD CELL (test code=RBC) 4.57 mill/mm3 3.7-5.2 HEMOGLOBIN (test code=HGB) 12.6 gram/dL 11.5-15.5 HEMATOCRIT (test code=HCT) 40.5 % 36.0-46.0 MEAN CELL VOLUME (test code=MCV) 88.6 fL 80-98 MEAN CELL HGB (test code=MCH) 27.6 picogram 27.0-33.0 MEAN CELL HGB CONCETRATION (test code=MCHC) 31.1 gram/dL 33.0-36.0 RED CELL DISTRIBUTION WIDTH (test code=RDW) 13.7 % 11.6-16.2 PLATELET COUNT (test code=PLT) 245 K/mm3 150-450 MEAN PLATELET VOLUME (test code=MPV) 10.4 fL 6.7-11.0 CBC W/O [id number] 19:12:00* Test Item Value Reference Range Comments WHITE BLOOD CELL (test code=WBC) K/mm3 4.5-12.5 RED BLOOD CELL (test code=RBC) mill/mm3 3.7-5.2 HEMOGLOBIN (test code=HGB) 12.6 gram/dL 11.5-15.5 HEMATOCRIT (test code=HCT) 40.5 % 36.0-46.0 MEAN CELL VOLUME (test code=MCV) fL 80-98 MEAN CELL HGB (test code=MCH) picogram 27.0-33.0 MEAN CELL HGB CONCETRATION (test code=MCHC) gram/dL 33.0-36.0 RED CELL DISTRIBUTION WIDTH (test code=RDW) % 11.6-16.2 PLATELET COUNT (test code=PLT) K/mm3 150-450 MEAN PLATELET VOLUME (test code=MPV) fL 6.7-11.0 - CT ABD PELVIS [id number] 00:29:00 Name: JENARO MORA [facility] : 1940 Age/S: 77 / F [address] [facility] Unit #: [id number] Loc: [place] [address] Phys: Kenny Stephens Acct: [id number] Dis Date: Status: REG ER PHONE #: [phone] Exam Date: 08/09/2018 2350 FAX #: [phone] Reason: pain EXAMS: CPT CODE: [id number] CT ABD PELVIS W/CONT 42450 EXAM: - CT ABD PELVIS W/CONT HISTORY: Abdominal pain. TECHNIQUE: Axial tomograms through the abdomen and pelvis were obtained after intravenous contrast. Coronal and sagittal reformatted images are provided. This exam was performed according to our departmental dose-optimization program, which includes automated exposure control, adjustment of the mA and/or kV according to patient size and/or use of iterative reconstruction technique. COMPARISON: 04/18/2018. FINDINGS: The visualized lung bases are clear. Unchanged tiny nodule in right lower lung laterally. No effusion. Moderate size hiatal hernia. Status post cholecystectomy. The liver, spleen, pancreas, adrenal glands and kidneys demonstrate no significant abnormalities. Bilateral renal cysts are similar to prior exam. There is mild inflammation with diverticulosis in left lower quadrant. There is no fluid collection or free air. The bowel is not distended. The appendix is not identified. There is no significant change compared to previous exam. There is no adenopathy or free fluid. Status post hysterectomy. Degenerative changes and scoliosis of spine. IMPRESSION: Mild diverticulitis in left lower quadrant. Hiatal hernia. Degenerative changes of spine. PAGE 1 Signed Report (CONTINUED) Name: JENARO MORA [facility] : 1940 Age/S: 77 / F [address] Unit #: [id number] Loc: [address] [address] Phys: Kenny Stephens DO Acct: [id number] Dis Date: Status: REG ER PHONE #: [phone] Exam Date: 08/09/2018 2350 FAX #: [phone] Reason: pain EXAMS: CPT CODE: [id number] CT ABD PELVIS W/CONT 97440 <Continued> at 0029 Reported and signed by: Angus Woodard MD CC: Jeromy Baez MD; Kenny Stephens DO Technologist:CECE ONEAL, CTDI: DLP: Trnscb Date/Time: 08/10/2018 (28) [email or web address] Orig Print D/T: S: 08/10/2018 (31) CTDI: DLP: PAGE 2 Signed Report URINALYSIS [id number] 23:38:00* Test Item Value Reference Range Comments UA COLOR (test code=COLU) YELLOW YELLOW UA APPEARANCE (test code=APPU) SLIGHTLY CLOUDY CLEAR UA GLUCOSE DIPSTICK (test code=DGLUU) NEGATIVE mg/dL NEGATIVE UA BILIRUBIN DIPSTICK (test code=BILU) NEGATIVE mg/dL NEGATIVE UA KETONE DIPSTICK (test code=KETU) Negative mg/dL NEGATIVE UA SPECIFIC GRAVITY (test code=SGU) 1.020 1.001-1.035 UA BLOOD DIPSTICK (test code=JEFF) 2+ (Moderate) NEGATIVE UA PH DIPSTICK (test code=JAYESH) 5.0 5.0-8.0 UA PROTEIN DIPSTICK (test code=PROU) Negative mg/dL NEGATIVE UA UROBILINIOGEN DIPSTICK (test code=URO) NEGATIVE mg/dL NEGATIVE UA NITRITE DIPSTICK (test code=TRICIA) NEGATIVE NEGATIVE UA LEUKOCYTE ESTERASE W REFLEX (test code=LEUUR) NEGATIVE NEGATIVE UA WBC (test code=WBCU) 0-5 #/HPF 0-5 UA RBC (test code=RBCU) 0-2 #/HPF 0-5 UA EPITHELIAL CELLS (test code=EPIU) MOD per HPF FEW UA BACTERIA (test code=BACU) MANY #/HPF NONE UA HYALINE CAST (test code=HYALU) 0-2 #/LPF 0-5 UA MUCUS (test code=MUCU) FEW #/LPF FEW Urine Source? Clean CatchBASIC METABOLIC [id number] 21:46:00* Test Item Value Reference Range Comments SODIUM (test code=NA) 140 mmol/L 136-145 POTASSIUM (test code=K) 3.4 mmol/L 3.5-5.1 CHLORIDE (test code=CL) 108.0 mmol/L 98-107 CARBON DIOXIDE (test code=CO2) 24.0 mmol/L 21-32 ANION GAP (test code=GAP) 11.4 10-20 GLUCOSE (test code=GLU) 106 mg/dL 74-106 BLOOD UREA NITROGEN (test code=BUN) 15 mg/dL 7-18 GLOMERULAR FILTRATION RATE (test code=GFR) 54 mL/min >=60 Estimated GFR by using Modified MDRD formula.Chronic kidney disease is defined as either kidney damageor GFR <60 mL/min/1.73 m2 for >3 months. CREATININE (test code=CREAT) 1.00 mg/dL 0.55-1.02 Note change in reference range due to change in reagent. BUN/CREATININE RATIO (test code=BUN/CREA) 15.0 10-20 CALCIUM (test code=CA) 8.1 mg/dL 8.5-10.1 HEPATIC FUNCTION [id number] 21:46:00* Test Item Value Reference Range Comments TOTAL PROTEIN (test code=PROT) 7.4 gram/dL 6.4-8.2 ALBUMIN (test code=ALB) 3.2 g/dL 3.4-5.0 GLOBULIN (test code=GLOB) 4.2 gram/dL 2.7-4.2 ALBUMIN/GLOBULIN RATIO (test code=A/G) 0.8 0.75-1.50 BILIRUBIN TOTAL (test code=BILT) 0.50 mg/dL 0.0-1.0 BILIRUBIN DIRECT (test code=BILD) 0.16 mg/dL 0.0-0.20 SGOT/AST (test code=AST) 15 IUnit/L 15-37 SGPT/ALT (test code=ALT) 24 IUnit/L 12-78 ALKALINE PHOSPHATASE TOTAL (test code=ALKP) 118 IUnit/L 45-117 Note change in reference range due to change in reagent. [id number] 21:46:00* Test Item Value Reference Range Comments LIPASE (test code=LIP) 64 U/L 73.0-393.0 [id number] 21:46:00* Test Item Value Reference Range Comments TROPONIN-I (test code=TROPI) <0.015 ng/mL 0-0.045 CBC W/O [id number] 21:43:00* Test Item Value Reference Range Comments WHITE BLOOD CELL (test code=WBC) 9.2 K/mm3 4.5-12.5 RED BLOOD CELL (test code=RBC) 4.39 mill/mm3 3.7-5.2 HEMOGLOBIN (test code=HGB) 12.4 gram/dL 11.5-15.5 HEMATOCRIT (test code=HCT) 37.7 % 36.0-46.0 MEAN CELL VOLUME (test code=MCV) 85.9 fL 80-98 MEAN CELL HGB (test code=MCH) 28.2 picogram 27.0-33.0 MEAN CELL HGB CONCETRATION (test code=MCHC) 32.9 gram/dL 33.0-36.0 RED CELL DISTRIBUTION WIDTH (test code=RDW) 13.4 % 11.6-16.2 PLATELET COUNT (test code=PLT) 258 K/mm3 150-450 MEAN PLATELET VOLUME (test code=MPV) 10.9 fL 6.7-11.0 CBC W/O [id number] 21:40:00* Test Item Value Reference Range Comments WHITE BLOOD CELL (test code=WBC) K/mm3 4.5-12.5 RED BLOOD CELL (test code=RBC) mill/mm3 3.7-5.2 HEMOGLOBIN (test code=HGB) 12.4 gram/dL 11.5-15.5 HEMATOCRIT (test code=HCT) 37.7 % 36.0-46.0 MEAN CELL VOLUME (test code=MCV) fL 80-98 MEAN CELL HGB (test code=MCH) picogram 27.0-33.0 MEAN CELL HGB CONCETRATION (test code=MCHC) gram/dL 33.0-36.0 RED CELL DISTRIBUTION WIDTH (test code=RDW) % 11.6-16.2 PLATELET COUNT (test code=PLT) K/mm3 150-450 MEAN PLATELET VOLUME (test code=MPV) fL 6.7-11.0 BASIC METABOLIC [id number] 21:36:00* Test Item Value Reference Range Comments SODIUM (test code=NA) 140 mmol/L 136-145 POTASSIUM (test code=K) 3.4 mmol/L 3.5-5.1 CHLORIDE (test code=CL) 108.0 mmol/L 98-107 CARBON DIOXIDE (test code=CO2) mmol/L 21-32 ANION GAP (test code=GAP) 10-20 GLUCOSE (test code=GLU) mg/dL 74-106 BLOOD UREA NITROGEN (test code=BUN) mg/dL 7-18 GLOMERULAR FILTRATION RATE (test code=GFR) mL/min >=60 CREATININE (test code=CREAT) mg/dL 0.55-1.02 BUN/CREATININE RATIO (test code=BUN/CREA) 10-20 CALCIUM (test code=CA) mg/dL 8.5-10.1 HEPATIC FUNCTION [id number] 21:36:00* Test Item Value Reference Range Comments TOTAL PROTEIN (test code=PROT) gram/dL 6.4-8.2 ALBUMIN (test code=ALB) g/dL 3.4-5.0 GLOBULIN (test code=GLOB) gram/dL 2.7-4.2 ALBUMIN/GLOBULIN RATIO (test code=A/G) 0.75-1.50 BILIRUBIN TOTAL (test code=BILT) mg/dL 0.0-1.0 BILIRUBIN DIRECT (test code=BILD) mg/dL 0.0-0.20 SGOT/AST (test code=AST) IUnit/L 15-37 SGPT/ALT (test code=ALT) IUnit/L 12-78 ALKALINE PHOSPHATASE TOTAL (test code=ALKP) IUnit/L 45-117 [id number] 21:36:00* Test Item Value Reference Range Comments LIPASE (test code=LIP) U/L 73.0-393.0 [id number] 21:36:00* Test Item Value Reference Range Comments TROPONIN-I (test code=TROPI) ng/mL 0-0.045 - CT HEAD/BRAIN W/O [id number] 19:35:00 Name: JENARO MORA [facility] : 1940 Age/S: 77 / F [facility] Unit #: [id number] Loc: [address] [address] Phys: Kenny Stephens DO Acct: [id number] Dis Date: Status: REG ER PHONE #: [phone] Exam Date: 07/05/2018 1838 FAX #: [phone] Reason: dizzy EXAMS: CPT CODE: [id number] CT HEAD/BRAIN W/O CONT 53671 EXAM: CT of the head without contrast; INFORMATION: Dizziness and headache; FINDINGS: CT dose reduction protocol; 2.5 mm axial scans. There is no evidence of intra or extra-axial hemorrhage, mass lesions or midline shift. There are minimal periventricular hypodensities; otherwise, unremarkable null/white matter differentiation. Ventricles are symmetric and of normal diameter; sulci and basilar cisterns are intact. Calcifications of the internal carotid arteries. The calvarium is intact. Paranasal sinuses and left mastoid air cells are well aerated. Sclerosis of right mastoid air cells and partial opacification of the right middle ear. IMPRESSION: 1. No evidence of intracranial hemorrhage or acute territorial infarction. 2. Minimal chronic ischemic white matter changes. 3. Chronic right mastoiditis and otitis media. at 1935 Reported and signed by: Catalino Swain M.D. CC: Jeromy Baez MD; Kenny Stephens DO Technologist:Tracey Crocker RT(R); SELWYN He CTDI: DLP: Trnscb Date/Time: 07/05/2018 (1934) Yoni Orig Print D/T: S: 07/05/2018 (1937) CTDI: DLP: PAGE 1 Signed Report - XR CHEST 1 V 2018-07-05 19:21:00 FAX: Jeromy Huizar MD [phone] [place]: B St: REG FAX: Kenny Stephens DO Name: JENARO MORA [facility] : 1940 Age/S: 77/F [address] [facility] Unit #: [id number] [place] [address] Phys: Kenny Stephens DO Acct: [id number] Dis Date: Status: REG ER PHONE #: [phone] Exam Date: 07/05/2018 190 FAX #: [phone] Reason: dizzy EXAMS: CPT CODE: [id number] XR CHEST 1 V 36562 EXAM: Chest X-ray, 1 view; CLINICAL HISTORY: Dizziness, headache; FINDINGS: The lungs are clear, no infiltrates, no edema; no effusions; no pneumothorax; normal cardiomediastinal silhouette. No change compared with a study from June 10, 2017. IMPRESSION: Normal chest x-ray. at 1920 Reported and signed by: Catalino Swain M.D. CC: Jeromy Baez MD; Kenny Stephens DO Technologist: IRISH WHIPPLE; Tray Parker, (R Trnscrd Date/Time/By: 07/05/2018 (1920) : By: [email or web address] Orig Print D/T: S: 07/05/2018 (1924) PAGE 1 Signed Report BASIC METABOLIC [id number] 19:17:00* Test Item Value Reference Range Comments SODIUM (test code=NA) 143 mmol/L 136-145 POTASSIUM (test code=K) 3.5 mmol/L 3.5-5.1 CHLORIDE (test code=CL) 111.0 mmol/L 98-107 CARBON DIOXIDE (test code=CO2) 23.0 mmol/L 21-32 ANION GAP (test code=GAP) 12.5 10-20 GLUCOSE (test code=GLU) 104 mg/dL 74-106 BLOOD UREA NITROGEN (test code=BUN) 14 mg/dL 7-18 GLOMERULAR FILTRATION RATE (test code=GFR) 54 mL/min >=60 Estimated GFR by using Modified MDRD formula.Chronic kidney disease is defined as either kidney damageor GFR <60 mL/min/1.73 m2 for >3 months. CREATININE (test code=CREAT) 1.00 mg/dL 0.55-1.02 Note change in reference range due to change in reagent. BUN/CREATININE RATIO (test code=BUN/CREA) 13.9 10-20 CALCIUM (test code=CA) 8.3 mg/dL 8.5-10.1 [id number] 19:17:00* Test Item Value Reference Range Comments TROPONIN-I (test code=TROPI) <0.015 ng/mL 0-0.045 BASIC METABOLIC [id number] 18:50:00* Test Item Value Reference Range Comments SODIUM (test code=NA) 143 mmol/L 136-145 POTASSIUM (test code=K) 3.5 mmol/L 3.5-5.1 CHLORIDE (test code=CL) 111.0 mmol/L 98-107 CARBON DIOXIDE (test code=CO2) mmol/L 21-32 ANION GAP (test code=GAP) 10-20 GLUCOSE (test code=GLU) mg/dL 74-106 BLOOD UREA NITROGEN (test code=BUN) mg/dL 7-18 GLOMERULAR FILTRATION RATE (test code=GFR) mL/min >=60 CREATININE (test code=CREAT) mg/dL 0.55-1.02 BUN/CREATININE RATIO (test code=BUN/CREA) 10-20 CALCIUM (test code=CA) mg/dL 8.5-10.1 [id number] 18:50:00* Test Item Value Reference Range Comments TROPONIN-I (test code=TROPI) ng/mL 0-0.045 CBC W/O [id number] 18:37:00* Test Item Value Reference Range Comments WHITE BLOOD CELL (test code=WBC) 6.8 K/mm3 4.5-12.5 RED BLOOD CELL (test code=RBC) 4.37 mill/mm3 3.7-5.2 HEMOGLOBIN (test code=HGB) 12.4 gram/dL 11.5-15.5 HEMATOCRIT (test code=HCT) 38.7 % 36.0-46.0 MEAN CELL VOLUME (test code=MCV) 88.6 fL 80-98 MEAN CELL HGB (test code=MCH) 28.4 picogram 27.0-33.0 MEAN CELL HGB CONCETRATION (test code=MCHC) 32.0 gram/dL 33.0-36.0 RED CELL DISTRIBUTION WIDTH (test code=RDW) 13.6 % 11.6-16.2 PLATELET COUNT (test code=PLT) 241 K/mm3 150-450 MEAN PLATELET VOLUME (test code=MPV) 10.4 fL 6.7-11.0
[2019-04-27] MEDS ORDERED: IBUPROFEN 600 MG TAB PO ONE (19:15)
--- NOTE | 2019-04-27 20:29 | Diagnostic Imaging Report ---
EXAM: HIP RIGHT 2-3 VW (+/- PELVIS) DATE: 04/27/2019 7:04 PM INDICATION: ^rt hip pain COMPARISON: None FINDINGS: AP pelvis: Single view of the pelvis shows no displaced fracture of the pelvis or left hip. The hip joint spaces are preserved and symmetric. There are degenerative changes lower lumbar spine. Surgical clips are seen in the central pelvis. Right hip: 2 views of the right hip show no displaced fracture or dislocation. The joint space is maintained. There is mild degenerative change with lateral acetabular osteophyte. Soft tissue unremarkable. IMPRESSION: No acute bony abnormality. Signed by: Dr. Evgeny Nicholas M.D. on 04/27/2019 8:26 PM
== END 2019-04-27 21:00 | disposition home or self-care (01) ==
LOC: ER 18:39
DX: M25.551 Pain in right hip (principal); G89.29 Other chronic pain; I10 Essential (primary) hypertension; E78.5 Hyperlipidemia, unspecified; K21.9 Gastro-esophageal reflux disease without esophagitis; E03.9 Hypothyroidism, unspecified
CPT/HCPCS: 99283

== ENCOUNTER → 2019-08-03 | Outpatient (CLI) | payer MEDICARE ==
[~2019-08-03] VITALS: Ht 152.4 cm; Wt 80.7 kg
[~2019-08-03] MED LIST: CIPRO500 MG PO; LABETALOL HCL100 MG PO; LEVOTHYROXINE88 MCG PO; LISINOPRIL10 MG PO; LOVASTATIN20 MG PO; METRONIDAZOLE500 MG PO; PANTOPRAZOLE SO40 MG PO
[2019-08-03 11:10] LABS: BASOPHILS % 0.6 % (0.0-1.0); EOSINOPHILS # (AUTO) 0.2 (0.0-0.4); EOSINOPHILS % 2.9 % (0.0-6.0); HEMATOCRIT 41.1 % (34.2-44.1); HEMOGLOBIN 13.9 g/dL (12.0-16.0); LYMPHOCYTES # (AUTO) 1.7 (1.0-3.2); LYMPHOCYTES % 25.6 % (18.0-39.1); MEAN CORPUSCULAR HEMOGLOBIN 29.5 pg (28-32); MEAN CORPUSCULAR HGB CONC 33.8 g/dL (31-35); MEAN CORPUSCULAR VOLUME 87.3 fL (81-99); MONOCYTES # (AUTO) 0.5 (0.2-0.8); MONOCYTES % 8.2 % (4.4-11.3); NEUTROPHILS % 62.2 % (38.7-80.0); PLATELET COUNT 264 x10e3/uL (140-360); RED BLOOD COUNT 4.71 x10e6/uL (3.6-5.1); RED CELL DISTRIBUTION WIDTH 13.7 % (11.7-14.4)
[2019-08-03 11:21] LABS: INR 0.97; PROTHROMBIN TIME 13.5 seconds (11.9-14.5)
[2019-08-03 11:22] LABS: PARTIAL THROMBOPLASTIN TIME 34.2 seconds (23.8-35.5)
[2019-08-03 11:27] LABS: ANION GAP 11.6 mmol/L (8-16); CALCIUM 9.1 mg/dL (8.4-10.2); CREATININE, SERUM 0.92 mg/dL (0.57-1.11); POTASSIUM 3.6 mmol/L (3.5-5.1)
--- NOTE | 2019-08-03 12:29 | Diagnostic Imaging Report ---
EXAMINATION: CHEST 2 VIEWS INDICATION: Pre-operative COMPARISON: None FINDINGS: LINES/TUBES:None LUNGS:The lungs are moderately inflated. No focal pneumonia or pulmonary edema. PLEURA:No pleural effusion or pneumothorax. MEDIASTINUM:The cardiomediastinal silhouette appears normal in size and shape. Atherosclerotic calcifications of the thoracic aorta. BONES/SOFT TISSUES:No acute osseous injury. ABDOMEN:No free air under the diaphragm. Status post cholecystectomy. IMPRESSION: No focal pneumonia or pulmonary edema. Signed by: Anita Trujillo MD on 08/03/2019 12:27 PM
--- NOTE | 2019-08-04 15:00 | NUR ---
1500p Received phone call from staff at Dr Justice office. Pt preferred change schedule procedure to August 19 CCL staff booked and informed Dr Cagle staff of potential abnormal EKG findings. [facility] staff informed that pt needs to re-register and Md to please contact staff radiographer to collect any further labs or tests. Office staff states will call back pre-op availability after talking to patient. Sruthi Rn (pre op CCL Rn) notified of procedure date change. [email or web address]
== END ==
LOC: DX 14:50 → EDSTATUS 08-07 10:00
PROVIDERS: ATTEND Internal Medicine Cardiovascular Disease
DX: Z01.818 Encounter for other preprocedural examination (principal); I10 Essential (primary) hypertension; E78.2 Mixed hyperlipidemia; Z53.8 Procedure and treatment not carried out for other reasons
CPT/HCPCS: 36415; 71046; 80048; 85025; 85610; 85730; 86850; 86900; 93005

== ENCOUNTER → 2019-08-21 | Day surgery (SDC) | payer OTHER, MEDICARE ==
[2019-08-16 14:28] LABS: BASOPHILS # (AUTO) 0.1 (0.0-0.1); BASOPHILS % 0.7 % (0.0-1.0); EOSINOPHILS # (AUTO) 0.2 (0.0-0.4); EOSINOPHILS % 2.5 % (0.0-6.0); HEMATOCRIT 39.6 % (34.2-44.1); HEMOGLOBIN 12.9 g/dL (12.0-16.0); LYMPHOCYTES # (AUTO) 1.9 (1.0-3.2); LYMPHOCYTES % 25.7 % (18.0-39.1); MEAN CORPUSCULAR HEMOGLOBIN 29.1 pg (28-32); MEAN CORPUSCULAR HGB CONC 32.6 g/dL (31-35); MEAN CORPUSCULAR VOLUME 89.2 fL (81-99); MONOCYTES # (AUTO) 0.6 (0.2-0.8); MONOCYTES % 8.6 % (4.4-11.3); NEUTROPHILS # (AUTO) 4.5 (2.1-6.9); NEUTROPHILS % 62.1 % (38.7-80.0); PLATELET COUNT 283 x10e3/uL (140-360); RED BLOOD COUNT 4.44 x10e6/uL (3.6-5.1); RED CELL DISTRIBUTION WIDTH 13.8 % (11.7-14.4)
[2019-08-16 14:38] LABS: INR 0.99; PROTHROMBIN TIME 13.7 seconds (11.9-14.5)
[2019-08-16 14:39] LABS: PARTIAL THROMBOPLASTIN TIME 34.9 seconds (23.8-35.5)
[2019-08-16 14:46] LABS: ANION GAP 12.6 mmol/L (8-16); CALCIUM 9.1 mg/dL (8.4-10.2); CREATININE, SERUM 0.99 mg/dL (0.57-1.11); POTASSIUM 3.6 mmol/L (3.5-5.1)
--- NOTE | 2019-08-16 15:40 | Diagnostic Imaging Report ---
EXAMINATION: CHEST 2 VIEWS INDICATION: Pre-operative COMPARISON: None FINDINGS: LINES/TUBES:None LUNGS:The lungs are well-inflated. No focal consolidation or pulmonary edema. PLEURA:No pleural effusion or pneumothorax. MEDIASTINUM:The cardiomediastinal silhouette appears normal in size and shape. Atherosclerotic calcifications of the thoracic aorta. BONES/SOFT TISSUES:No acute osseous injury. Loss of vertebral body height at L1 and L2. ABDOMEN:No free air under the diaphragm. Status post cholecystectomy. IMPRESSION: No focal pneumonia or pulmonary edema. Loss of vertebral body height at L1 and L2, possibly indicating age-indeterminate compression fracture. If there are symptoms localizing to this area, recommend lumbar spine MRI for further evaluation. Signed by: Anita Trujillo MD on 08/16/2019 3:37 PM
--- NOTE | 2019-08-20 12:25 | Pre Op History & Physical ---
REASON FOR ADMISSION: Ms. Rolon is a pleasant 78-year-old woman with hypertension, hyperlipidemia, hypothyroidism, who is admitted at this time for further evaluation of chest discomfort and abnormal Cardiolite. HISTORY OF PRESENT ILLNESS: The patient has had some atypical chest discomfort and a Cardiolite performed on February 13, 2019, shows small area of inferobasilar ischemia, EF 80%. Echocardiogram showed some aortic insufficiency. She has had recent treatment for diarrhea. PAST MEDICAL HISTORY: Significant for longstanding hypertension and hyperlipidemia. MEDICATIONS: Her recent home medications have been: 1. Levothyroxine 88 mcg daily. 2. Lovastatin 20 mg daily. 3. Lisinopril 40 mg daily. 4. Labetalol 100 mg twice a day. 5. Pantoprazole 40 mg daily. 6. She has finished her antibiotics of metronidazole and Cipro. PAST SURGICAL HISTORY: Remote appendectomy, remote cholecystectomy. She reports a "tumor" removed by colonoscopy years ago and she had a small polyp removed by Dr. Rand in February 2019 when she was hospitalized at [place] for diverticulosis and abdominal discomfort. PERSONAL AND SOCIAL HISTORY: She does not smoke or drink. ALLERGIES: SHE HAS NO KNOWN DRUG ALLERGIES. FAMILY HISTORY: Father at 76 with heart disease. PHYSICAL EXAMINATION: GENERAL: At this time shows an anxious, elderly, woman, who is 5 feet tall, weighing 177 pounds. VITAL SIGNS: Blood pressure 124/78, pulse 72 and regular. HEAD, EYES, EARS, NOSE, AND THROAT: Unremarkable. NECK: No jugular venous distention. No bruits. THORAX: Heart sounds S1 and S2 are equal. No murmurs. LUNGS: Clear. ABDOMEN: Protuberant. EXTREMITIES: No cyanosis, clubbing, or edema. DIAGNOSTIC DATA: EKG show sinus rhythm. ASSESSMENT: 1. Atypical chest discomfort. 2. Abnormal Cardiolite. 3. History of hypertension. 4. History of hyperlipidemia. 5. History of hypothyroidism. PLAN: We will perform left heart catheterization with further management based on results of study. Thank you very much. MD SANDRA Mann/MAGGI /[id number]
[2019-08-21] VITALS (11 sets, daily range): BP systolic 113–151; BP diastolic 45–85
[~2019-08-21] VITALS: Ht 152.4 cm; Wt 80.7 kg
[~2019-08-21] MED LIST changes: +DIPHENHYDRAMINE HCL INJ 50 MG/ML VIAL ONE; +FENTANYL CITRATE/PF 100MCG/2 ML INJ ONE; +HEPARIN SOD (PORCINE) 1000 UNIT/ML 30ML ONE; +HEPARIN SOD/SOD CHLORIDE 2,000 ML ONE; +IOPAMIDOL 370 MG/ML 200 ML INFUS..BTL INJ ONE; +LIDOCAINE HCL 2% LOCAL 20 ML VIAL ONE; +METOPROLOL TARTRATE INJ 1 MG/ML VIAL ONE; +MIDAZOLAM HCL 2 MG/2 ML VIAL ONE; +NITROGLYCERIN/D5W 200 MCG/ML 0 ML ONE; +SODIUM CHLORIDE 0.9% 1000ML 1,000 ML ONE
--- NOTE | 2019-08-21 12:20 | Operative Report ---
DATE OF PROCEDURE: 08/21/2019 SURGEON: Hans Justice MD INDICATIONS: Atypical chest discomfort and abnormal Cardiolite. PROCEDURE IN DETAIL: The patient was brought to the chemical laboratory chief in a fasting, partially sedated state, given 1 mg Versed and 25 mg of Benadryl IV push. The right groin was prepped with scrub and 2% xylocaine and a 4-Vietnamese sheath was placed in the right common femoral artery. Left heart catheterization was performed with 4-Vietnamese pigtail and 4-Vietnamese right and left Mikki catheters. Inspection of the films demonstrates normal left ventricular function. EF about 70%. There are mild calcifications of the aortic arch without evidence of dissection. The right coronary artery is a dominant vessel, has no significant stenosis. The left main is unremarkable. The LAD, large ramus, circumflex, and OM are all unremarkable. The catheters and sheath were removed, pressure held, and she was returned to her room in stable condition. She was given a total of 10 mg of metoprolol IV push during the procedure. FINAL IMPRESSION: 1. Normal coronary arteries. 2. Normal left ventricular function. Ejection fraction about 70%. 3. Moderate calcifications of the aortic arch. MD SANDRA Mann/RICHARDL /[id number]
--- NOTE | 2019-08-21 15:21 | Discharge Summary ---
DATE OF PROCEDURE: August 21, 2019. HOSPITAL COURSE: Ms. Rolon is a pleasant 78-year-old woman, who was admitted at this time for further evaluation of chest discomfort and abnormal Cardiolite. Left heart catheterization was performed without difficulty, showing normal coronary arteries and normal left ventricular function. There was moderate calcifications of the aortic arch without other abnormality. She was given total of 10 mg of Lopressor during the case and she was monitored for 4 hours and discharged home in stable condition. She will continue home medications and followup in my office in 7 to 10 days. DISCHARGE DIAGNOSES: 1. Atypical chest discomfort. 2. Normal coronary arteries. 3. Normal left ventricular function. 4. Moderate calcifications of the aortic arch. 5. Hypertension. MD SANDRA Mann/MAGGI /[id number]
== END | disposition home or self-care (01) ==
LOC: CATH LAB 07:39
PROVIDERS: ATTEND Internal Medicine Cardiovascular Disease
DX: R07.89 Other chest pain (principal); E78.2 Mixed hyperlipidemia; E03.9 Hypothyroidism, unspecified; I10 Essential (primary) hypertension; Z01.810 Encounter for preprocedural cardiovascular examination; Z01.812 Encounter for preprocedural laboratory examination; Z01.811 Encounter for preprocedural respiratory examination; I70.0 Atherosclerosis of aorta
CPT/HCPCS: 36415; 71046; 80048; 85025; 85610; 85730; 86850; 86900; 93005; 93458; 99152; 99153; C1766; J1200; J1644; J2001; J2250; J3010; J7030; Q9967

== ENCOUNTER 2020-02-01 12:39 | Emergency (ER) | payer MEDICARE ==
[~2020-02-01] VITALS: Ht 152.4 cm; Wt 80.7 kg
[~2020-02-01 12:39] MED LIST changes: -DIPHENHYDRAMINE HCL INJ 50 MG/ML VIAL ONE; -FENTANYL CITRATE/PF 100MCG/2 ML INJ ONE; -HEPARIN SOD (PORCINE) 1000 UNIT/ML 30ML ONE; -HEPARIN SOD/SOD CHLORIDE 2,000 ML ONE; -IOPAMIDOL 370 MG/ML 200 ML INFUS..BTL INJ ONE; -LIDOCAINE HCL 2% LOCAL 20 ML VIAL ONE; -METOPROLOL TARTRATE INJ 1 MG/ML VIAL ONE; -MIDAZOLAM HCL 2 MG/2 ML VIAL ONE; -NITROGLYCERIN/D5W 200 MCG/ML 0 ML ONE; -SODIUM CHLORIDE 0.9% 1000ML 1,000 ML ONE
[2020-02-01] MEDS ORDERED: SODIUM CHLORIDE 0.9% 1000ML 1,000 ML IV STA (13:21)
--- NOTE | 2020-02-01 13:32 | Emergency Department Note ---
History of Present Illnes History of Present Illness Chief Complaint: Abdominal Complaints History of Present Illness This is a 79 year old female 79 Y/O FEMALE PT AAOX3 PRESENTS TO THE ER C/O INTERMITTENT LLQ ABD PAIN AND LOWER ABD CRAMPING ONSET X3 DAYS [employer]; PT DENIES FEVER/CHILLS, N/V/D; NAD NOTED AT THIS TIME; SKIN WARM, DRY AND COLOR WNL FOR PT; V/S/S; 20G IV CATH PLACED IN RT AC; BLOOD OBTAINED FOR ANALYSIS; DR MEJIA IN TRIAGE FOR INITIAL EVAL. . Historian: Patient Arrival Mode: Car Radiation: Reports back Severity: moderate Onset quality: gradual Duration (how long): day(s) Progression: waxing and waning Chronicity: new Relieving factors: none Exacerbating factors: none Associated symptoms: Reports other Treatments prior to arrival: none Past Medical/Family History Physician Review I have reviewed the patient's past medical and family history. Any updates have been documented here. Past Medical History Recent Fever: No Clinical Suspicion of Infectio: No New/Unexplained Change in Ment: No Past Medical History: Hypertension, Hypothyroidism, GERD, Hyperlipedemia, Osteoarthritis Other Medical History: chronic right hip pain Past Surgical History: Cholecysctectomy, Appendectomy Other Surgery: cystoscopy colonoscopy Social History Smoking Cessation: Never Smoker Any Illegal Drug Use: No Other Last Tetanus: utd Any Pre-Existing Lines (PICC,: No Review of Systems Review of Systems Constitutional: Reports no symptoms EENTM: Reports no symptoms Cardiovascular: Reports no symptoms Respiratory: Reports no symptoms Gastrointestinal: Reports as per HPI Genitourinary: Reports no symptoms Musculoskeletal: Reports no symptoms Integumentary: Reports no symptoms Neurological: Reports no symptoms Psychological: Reports no symptoms Endocrine: Reports no symptoms Hematological/Lymphatic: Reports no symptoms Physical Exam Related Data Allergies: Coded Allergies: No Known Drug Allergies (Verified Allergy, Unknown, 02/26/10) Triage Vital Signs Vital Signs Date Time Temp Pulse Resp B/P (MAP) Pulse Ox O2 Delivery O2 Flow Rate FiO2 02/01/20 13:16 98.7 70 18 151/93 100 Room Air Vital signs reviewed: Yes Physical Exam CONSTITUTIONAL Constitutional: Present well-developed, Present well-nourished, Present obese HENT HENT: Present normocephalic, Present atraumatic, Present oropharynx clear/moist, Present nose normal HENT L/R: Present left ext ear normal, Present right ext ear normal EYES Eyes: Reports PERRL, Reports conjunctivae normal NECK Neck: Present ROM normal PULMONARY Pulmonary: Present effort normal, Present breath sounds normal CARDIOVASCULAR Cardiovascular: Present regular rhythm, Present heart sounds normal, Present capillary refill normal, Present normal rate GASTROINTESTINAL Abdominal: Present soft, Present nontender, Present bowel sounds normal, Present tender (LLQ) GENITOURINARY Genitourinary: Present exam deferred SKIN Skin: Present warm, Present dry MUSCULOSKELETAL Musculoskeletal: Present ROM normal NEUROLOGICAL Neurological: Present alert, Present oriented x 3, Present no gross motor or sensory deficits PSYCHOLOGICAL Psychological: Present mood/affect normal, Present judgement normal Results Laboratory Lab results reviewed: Yes Laboratory comments UA c/w UTI, K 3.2 Imaging Imaging results reviewed: Yes Diagnostics Tests Diagnostic test(s) reviewed: Yes Diagnostic comments uncomplicated diverticulitis Assessment & Plan Medical Decision Making MDM llq pain, DIVERTICULITIS, SBO, STONES, CONSTIPATION. Reassessment Reassessment doing better Assessment & Plan Final Impression: (1) Diverticulitis (2) Hypokalemia (3) UTI (urinary tract infection) Depart Disposition: HOME, SELF-CARE Last Vital Signs Date Time Temp Pulse Resp B/P (MAP) Pulse Ox O2 Delivery O2 Flow Rate FiO2 02/01/20 13:16 98.7 70 18 151/93 100 Room Air Home Meds Reported Medications Lisinopril (LISINOPRIL) 10 Mg Tablet, 40 MG PO DAILY, #30 TAB 08/03/19 Lovastatin (LOVASTATIN) 20 Mg Tablet, 20 MG PO HS 08/03/19 Labetalol Hcl (LABETALOL HCL) 100 Mg Tablet, 100 MG PO BID, #30 TAB 08/03/19 Levothyroxine Sodium (LEVOTHYROXINE SODIUM) 88 Mcg Tablet, 88 MCG PO DAILY, #30 TAB 08/03/19 Pantoprazole Sodium* (PROTONIX) 40 Mg Tablet.dr, 40 MG PO DAILY, TAB 08/03/19 Medications in the ED Sodium Chloride 1,000 ml @ 0 mls/hr Q0M STAT IV ; Start 02/01/20 at 13:21; Stop 02/01/20 at 13:23; Status DC Physician Attestation Provider Attestation Cipro, flagyl, tramadol/apap ETHEL MEJIA MD Feb 01, 2020 13:32
[2020-02-01 14:03] LABS: BASOPHILS # (AUTO) 0.1 (0.0-0.1); BASOPHILS % 0.8 % (0.0-1.0); EOSINOPHILS # (AUTO) 0.3 (0.0-0.4); EOSINOPHILS % 3.6 % (0.0-6.0); HEMATOCRIT 38.7 % (34.2-44.1); HEMOGLOBIN 12.6 g/dL (12.0-16.0); LYMPHOCYTES # (AUTO) 1.6 (1.0-3.2); LYMPHOCYTES % 21.2 % (18.0-39.1); MEAN CORPUSCULAR HEMOGLOBIN 28.1 pg (28-32); MEAN CORPUSCULAR HGB CONC 32.6 g/dL (31-35); MEAN CORPUSCULAR VOLUME 86.2 fL (81-99); MONOCYTES # (AUTO) 0.8 (0.2-0.8); NEUTROPHILS # (AUTO) 4.8 (2.1-6.9); NEUTROPHILS % 64.1 % (38.7-80.0); PLATELET COUNT 273 x10e3/uL (140-360); RED BLOOD COUNT 4.49 x10e6/uL (3.6-5.1); RED CELL DISTRIBUTION WIDTH 13.7 % (11.7-14.4)
[2020-02-01 14:10] LABS: CLARITY,URINE CLOUDY (CLEAR); COLOR,URINE YELLOW (YELLOW)
[2020-02-01 14:11] LABS: BILIRUBIN,URINE NEGATIVE (NEGATIVE); KETONES,URINE NEGATIVE (NEGATIVE); LEUKOCYTE ESTERASE ,URINE SMALL (NEGATIVE); NITRITE,URINE POSITIVE (NEGATIVE); PROTEIN,URINE DIPSTICK NEGATIVE (NEGATIVE); URINE UROBILINOGEN 0.2 mg/dL (0.2 - 1)
[2020-02-01 14:18] LABS: ALANINE AMINOTRANSFERASE 12 IU/L (0-55); ALBUMIN 3.4 g/dL (3.5-5.0); ALKALINE PHOSPHATASE 94 IU/L (40-150); ANION GAP 16.2 mmol/L (8-16); BLOOD UREA NITROGEN 11 mg/dL (7-26); BUN/CREATININE RATIO 13 (6-25); CALCIUM 8.6 mg/dL (8.4-10.2); CARBON DIOXIDE 19 mmol/L (22-29); CHLORIDE 110 mmol/L (98-107); CREATININE, SERUM 0.85 mg/dL (0.57-1.11); EST GLOMERULAR FILTRATION RATE > 60 ML/MIN (60-); GLUCOSE 105 mg/dL (74-118); POTASSIUM 3.2 mmol/L (3.5-5.1); SODIUM 142 mmol/L (136-145)
[2020-02-01 14:20] LABS: BACTERIA,URINE MANY /HPF; EPITHELIAL CELLS,URINE FEW /LPF; RBC,URINE 0-5 /HPF (0-5)
[2020-02-01] MEDS ORDERED: SODIUM CHLORIDE 0.9% 50ML 50 ML ONE (14:29)
[2020-02-01] MEDS ORDERED: IOPAMIDOL 370 MG/ML 200 ML INFUS..BTL INJ ONE (14:30)
[2020-02-01] MEDS ORDERED: POTASSIUM CHLORIDE 20 MEQ TAB CR PO STA (14:34)
--- OUTSIDE RECORDS SUMMARY | 2020-02-01 14:37 | XMS REPORT | Continuity of Care Document ---
Author Author [facility] t Organization [facility] Address [address] [place] [address] Phone Unavailable Care Team Providers Care Search Advertising Strategist Name Role Phone Iona GLEZ MD PCP SAMANO, A FLORENCE Attphys Unavailable SWEET, A LAIRD Attphys Unavailable Payers Payer Name Policy Type Policy Number Effective Date Expiration Date [place] [facility] [id number] [facility] Problems This patient has no known problems. Allergies, Adverse Reactions, Alerts Allergy Name Allergy Type Status Severity Reaction(s) Onset Date Inacti ve Date Treating Clinician Comments Source No Known Allergies DA Active U 2019-04-12 00:00:00 [facility] No Known Allergies DA Active U 2019-03-28 00:00:00 [facility] No Known Allergies DA Active U 2018-09-06 00:00:00 [facility] No Known Allergies DA Active U 2018-08-09 00:00:00 [facility] No Known Allergies DA Active U 2018-04-18 00:00:00 [facility] No Known Allergies DA Active U 2017-09-27 00:00:00 [facility] No Known Allergies DA Active U 2017-09-22 00:00:00 [facility] Medications This patient has no known medications. Procedures This patient has no known procedures. Encounters Start Date/Time End Date/Time Encounter Type Admission Type [facility] Care Department Encounter ID Source 2019-04-27 18:39:00 2019-04-27 21:00:00 Departed Emergency Room 1 AAMIR RODRIGUEZ [facility] [id number] [facility] Results Test Description Test Time Test Comments Results Result Comments Source CHEST 2 VIEWS 2019-08-16 15:36:00 [facility] [address] [address] Patient Name: JENARO MORA MR #: [id number] : 1940 Age/Sex: 78/F Req #: [id number] Adm Physician: Ordered by: FLORENCE SAMANO MD Report #: [id number] Location: [facility] Room/Bed: Procedure: [id number] DX/CHEST 2 VIEWS Exam Date: 08/16/19 Exam Time: 1445 REPORT STATUS: Signed EXAMINATION: CHEST 2 VIEWS INDICATION: Pre-operative COMPARISON: None FINDINGS: LINES/TUBES:None LUNGS:The lungs are well-inflated. No focal consolidation or pulmonary edema. PLEURA:No pleural effusion or pneumothorax. MEDIASTINUM:The cardiomediastinal silhouette appears normal in size and shape. Atherosclerotic calcifications of the thoracic aorta. BONES/SOFT TISSUES:No acute osseous injury. Loss of vertebral body height at L1 and L2. ABDOMEN:No free air under the diaphragm. Status post cholecystectomy. IMPRESSION: No focal pneumonia or pulmonary edema. Loss of vertebral body height at L1 and L2, possibly indicating age-indeterminate compression fracture. If there are symptoms localizing to this area, recommend lumbar spine MRI for further evaluation. Signed by: Joey Rivers MD on 08/16/2019 3:37 PM Dictated By: JOEY RIVERS MD 36 Transcribed By: ABRAHAM on 08/16/191536 COPY TO: FLORENCE SAMANO MD CHEST 2 VIEWS 2019-08-03 12:26:[address] [address] Patient Name: JENARO MORA MR #: [id number] : 1940 Age/Sex: 78/F Req #: [id number] Adm Physician: Ordered by: FLORENCE SAMANO MD Report #: [id number] Location: [facility] Room/Bed: Procedure: [id number] DX/CHEST 2 VIEWS Exam Date: 08/03/19 Exam Time: 1130 REPORT STATUS: Signed EXAMINATION: CHEST 2 VIEWS INDICATION: Pre-operative COMPARISON: None FINDINGS: LINES/TUBES:None LUNGS:The lungs are moderately inflated. No focal pneumonia or pulmonary edema. PLEURA:No pleural effusion or pneumothorax. MEDIASTINUM:The cardiomediastinal silhouette appears normal in size and shape. Atherosclerotic calcifications of the thoracic aorta. BONES/SOFT TISSUES:No acute osseous injury. ABDOMEN:No free air under the diaphragm. Status post cholecystectomy. IMPRESSION: No focal pneumonia or pulmonary edema. Signed by: Joey Rivers MD on 08/03/2019 12:27 PM Dictated By: JOEY RIVERS MD 26 Transcribed By: ABRAHAM on 08/03/191226 COPY TO: FLORENCE SAMANO MD - CT ABD PELVIS W/CONT 2019-07-30 13:57:00 Diogo e: JENARO MORA [facility] : 1940 Age/S: 78 / F [address] [facility] Unit #: [id number] Loc: [place] [address] Phys: Sarah Ramsey MD Acct: [id number] Dis Date: Status: REG ER PHONE #: [phone] Exam Date: 07/30/2019 1341 FAX #: [phone] Reason: AP diarrhea eval for diverticulitis EXAMS: CPT CODE: [id number] CT ABD PELVIS W/CONT 99218 HISTORY: Abdominal pain and diarrhea/evaluate for diverticulitis. COMPARISON: April 12, 2019. Location: . CT of abdomen and pelvis with IV contrast: 100 mL of Isovue 370. Automated exposure control. CT ABDOMEN: The lung bases are clear. Dependent changes. 4.7 mm noncalcified subpleural anterolateral right lower lobe lung nodule is stable from April 12, 2019. The liver is enhancing homogeneously. Patient is post cholecystectomy. Portal vein and hepatic artery are patent. The liver 15.2 cm in length. Spleen is enhancing homogeneously. Stomach demonstrated large retrocardiac hiatal hernia. Rest of the stomach is collapsed and limited in evaluation. Pancreas enhances homogeneously. Unremarkable adrenals. Kidneys are free from hydroureteronephrosis. Homogeneous enhancement. Bilateral excretion. Multiple parapelvic cysts on the right side. Multiple subcentimeter cystic lesions bilaterally are too small to be characterized. 1.6 cm left posterior interpolar Bosniak 1 lesion with average Hounsfield unit measurement of 10. No pathologic adenopathy. Well-opacified abdominal and pelvic vasculature. No bowel obstruction or colitis or diverticulitis or enteritis. Diverticulosis. CT PELVIS: Appendix is not visible but no inflammatory changes. Pelvic bowel loops are unobstructed. Extensive sigmoid diverticulosis. No diverticulitis visible. Thickened rectal wall. This likely results from underdistention. Less likely colitis. Correlate with white cell count and clinical symptomatology. PAGE 1 Signed Report (CONTINUED) Name: JENARO MORA [facility] : 1940 Age/S: 78 / F [address] [facility] Unit #: [id number] Loc: [address] [address] Phys: Sarah Ramsey MD Acct: [id number] Dis Date: Status: REG ER PHONE #: [phone] Exam Date: 07/30/2019 1341 FAX #: [phone] Reason: AP diarrhea eval for diverticulitis EXAMS: CPT CODE: [id number] CT ABD PELVIS W/CONT 66468 <Continued> Patient is post hysterectomy. Unremarkable urinary bladder. No free fluid or free air or abscess. Subcutaneous tissues and the musculature are normal in appearance. No lytic or blastic lesions are noted within the bony skeleton. Bone islands. DJD. IMPRESSION: Appendix is not visible but no inflammation. Mild circumferential wall thickening of the rectal wall. Correlate for colitis. No significant inflammation. Sigmoid diverticulosis without diverticulitis. Moderate size retrocardiac hiatal hernia. 4.7 mm noncalcified right lower lobe subpleural anterolateral lung nodule is stable from previous CT scan of April 12, 2019. Follow-up. at 1357 Reported and signed by: Panchito Davis M.D. CC: Jeromy Glez MD; Sarah Ramsey MD Technologist:Manasa Salgado CTDI: DLP: Trnscb Date/Time: 07/30/2019 (9907) t.SDR.TH4 Orig Print D/T: S: 07/30/2019 (1702) PAGE 2 Signed Report COMPREHENSIVE METABOLIC PANEL 2019-07-30 13:20:00 Test Item SODIUM (test code = NA) 141 mmol/L 136-145 N POTASSIUM (test code = K) 3.8 mmol/L 3.5-5.1 N CHLORIDE (test code = CL) 107 mmol/L 101-109 N CARBON DIOXIDE (test code = CO2) 22.7 mmol/L 21-32 N ANION GAP (test code = GAP) 15 mmol/L 10-20 N GLUCOSE (test code = GLU) 112 mg/dL 74-106 H BLOOD UREA NITROGEN (test code = BUN) 24 mg/dL 3-21 H CREATININE (test code = CREAT) 1.29 mg/dL 0.55-1.3 N BUN/CREATININE RATIO (test code = BUN/CREA) 18.6 10-20 N TOTAL PROTEIN (test code = PROT) 7.1 g/dL 6.5-8.4 N ALBUMIN (test code = ALB) 3.2 g/dL 3.4-4.8 L GLOBULIN (test code = GLOB) 3.9 G/DL 1-10 N ALBUMIN/GLOBULIN RATIO (test code = A/G) 0.82 RATIO 0.75-1.50 N CALCIUM (test code = CA) 8.4 mg/dL 8.4-10.2 N BILIRUBIN TOTAL (test code = BILT) 0.50 mg/dL 0.0-1.0 N SGOT/AST (test code = AST) 15 U/L 6-32 N SGPT/ALT (test code = ALT) 20 U/L 12-78 N N ote: Change in REFERENCE RANGE due to new reagent method. ALKALINE PHOSPHATASE TOTAL (test code = ALKP) 115 U/L 38-126 N [id number] 13:20:00* Test Item Value Reference Range Interpretation Comments LIPASE (test code = LIP) 108 U/L 128-270 L [id number] 13:20:00* Test Item Value Reference Range Interpretation Comments MAGNESIUM (test code = MAG) 1.8 mg/dL 1.6-2.3 N CPK-MB [id number] 13:20:00* Test Item Value Reference Range Interpretation Comments CREATINE KINASE (CK) (test code = CK) 101 U/L 26-192 N CKMB (test code = CKMBT) 0.8 ng/mL 0.0-5.0 N RELATIVE % INDEX (test code = REL%) 0.8 % [id number] 13:20:00* Test Item Value Reference Range Interpretation Comments TROPONIN-I (test code = TROPI) <0.015 ng/mL 0.00-0.056 N LACTIC [id number] 13:09:00* Test Item Value Reference Range Interpretation Comments LACTIC ACID (test code = LACT) 1.6 MMOL/L 0.4-1.9 N URINALYSIS [id number] 12:49:00* Test Item Value Reference Range Interpretation Comments UA COLOR (test code = COLU) YELLOW YELLOW UA APPEARANCE (test code = APPU) HAZY CLEAR A UA GLUCOSE DIPSTICK (test code = DGLUU) norm mg/dL NEGATIVE UA BILIRUBIN DIPSTICK (test code = BILU) 1 mg/dL NEGATIVE A UA KETONE DIPSTICK (test code = KETU) 5 (Trace) mg/dL NEGATIVE A UA SPECIFIC GRAVITY (test code = SGU) 1.025 1.001-1.035 UA BLOOD DIPSTICK (test code = JEFF) 150 (3+) Sanjiv/uL NEGATIVE A UA PH DIPSTICK (test code = JAYESH) 5.0 5.0-8.0 UA PROTEIN DIPSTICK (test code = PROU) 30 (1+) mg/dL Neg-15 A UA UROBILINIOGEN DIPSTICK (test code = URO) norm mg/dL 0.0-0.2 UA NITRITE DIPSTICK (test code = TRICIA) POSITIVE NEGATIVE UA LEUKOCYTE ESTERASE DIPSTICK (test code = LEUU) 500 Hernan/uL (3+) u L NEGATIVE A UA WBC (test code = WBCU) per HPF 0-5 UA RBC (test code = RBCU) per HPF 0-5 UA EPITHELIAL CELLS (test code = EPIU) per HPF Few UA BACTERIA (test code = BACU) per HPF NONE Urine Source? Clean CatchURINALYSIS [id number] 12:49:00* Test Item Value Reference Range Interpretation Comments UA COLOR (test code = COLU) YELLOW YELLOW UA APPEARANCE (test code = APPU) HAZY CLEAR A UA GLUCOSE DIPSTICK (test code = DGLUU) norm mg/dL NEGATIVE UA BILIRUBIN DIPSTICK (test code = BILU) 1 mg/dL NEGATIVE A UA KETONE DIPSTICK (test code = KETU) 5 (Trace) mg/dL NEGATIVE A UA SPECIFIC GRAVITY (test code = SGU) 1.025 1.001-1.035 UA BLOOD DIPSTICK (test code = JEFF) 150 (3+) Sanjiv/uL NEGATIVE A UA PH DIPSTICK (test code = JAYESH) 5.0 5.0-8.0 UA PROTEIN DIPSTICK (test code = PROU) 30 (1+) mg/dL Neg-15 A UA UROBILINIOGEN DIPSTICK (test code = URO) norm mg/dL 0.0-0.2 UA NITRITE DIPSTICK (test code = TRICIA) POSITIVE NEGATIVE UA LEUKOCYTE ESTERASE DIPSTICK (test code = LEUU) 500 Hernan/uL (3+) u L NEGATIVE A UA WBC (test code = WBCU) 21-50 per HPF 0-5 A UA RBC (test code = RBCU) 25-50 per HPF 0-5 A UA EPITHELIAL CELLS (test code = EPIU) None seen per HPF Few UA BACTERIA (test code = BACU) MODERATE per HPF NONE A Urine Source? Clean CatchB-TYPE NATRIURETIC [id number] 12:41:00* Test Item Value Reference Range Interpretation Comments B-TYPE NATRIURETIC PEPTIDE (test code = BNP) 22.2 pg/mL 0-100 N - XR CHEST 1 [id number] 12:28:00 Name: JENARO MORA [facility] : 1940 Age/S:78 /F [address] [facility] Unit#:[id number] Loc: [place] [address] Phys: Sarah Ramsey MD Dis Date: PHONE #: [phone] Status: REG ER FAX #: [phone] Exam Date: 07/30/2019 Reason: AP EXAMS: CPT CODE: [id number] XR CHEST 1 V 72933 HISTORY: Abdominal pain. COMPARISON: Chest x-ray from July 05, 2018. Location: . No acute infiltrates, effusion or congestion is noted. Suboptimal inspiration. Mild cardiomegaly. IMPRESSION: No acute infiltrates, effusion or congestion. at 1228 Reported and signed by: Panchito Davis M.D. CC: Jeromy Glez MD; Sarah Ramsey MD Technologist: Manasa Salgado Trnscrpt Data: 07/30/2019 (1228) t.SDR.TH4 Orig Print D/T: S: 07/30/2019 (3607) PAGE 1 Signed Report CBC W/AUTO DIFF 2019-07-30 12:24:00* Test Item Value Reference Range Interpretation Comments WHITE BLOOD CELL (test code = WBC) 6.7 K/mm3 4.5-12.5 N RED BLOOD CELL (test code = RBC) 4.47 mill/mm3 3.7-5.2 N HEMOGLOBIN (test code = HGB) 12.8 gram/dL 11.5-15.5 N HEMATOCRIT (test code = HCT) 38.7 % 36.0-46.0 N MEAN CELL VOLUME (test code = MCV) 86.6 fL 80-98 N MEAN CELL HGB (test code = MCH) 28.6 picogram 27.0-33.0 N MEAN CELL HGB CONCETRATION (test code = MCHC) 33.1 gram/dL 33.0-36. 0 N RED CELL DISTRIBUTION WIDTH (test code = RDW) 13.6 % 11.6-16. 2 N RED CELL DISTRIBUTION WIDTH SD (test code = RDW-SD) 43.5 fL 37 .0-51.0 N PLATELET COUNT (test code = PLT) 262 K/mm3 150-450 N MEAN PLATELET VOLUME (test code = MPV) 10.0 fL 6.7-11.0 N NEUTROPHIL % (test code = NT%) 65.4 % 39.0-69.0 N LYMPHOCYTE % (test code = LY%) 20.5 % 25.0-55.0 L MONOCYTE % (test code = MO%) 11.6 % 0.0-10.0 H EOSINOPHIL % (test code = EO%) 1.8 % 0.0-5.0 N BASOPHIL % (test code = BA%) 0.4 % 0.0-1.0 N NEUTROPHIL # (test code = NT#) 4.41 K/mm3 1.8-7.7 N LYMPHOCYTE # (test code = LY#) 1.38 K/mm3 1.0-5.0 N MONOCYTE # (test code = MO#) 0.78 K/mm3 0-0.8 N EOSINOPHIL # (test code = EO#) 0.12 K/mm3 0.0-0.5 N BASOPHIL # (test code = BA#) 0.03 K/mm3 0.0-0.2 N MANUAL DIFF REQUIRED (test code = MDIFF) NO HIP RIGHT 2-3 VW (+/- PELVIS)2019-04-27 20:23:00 [address] [address] Patient Name: JENARO MORA MR #: [id number] : 1940 Age/Sex: 78/F Req #: [id number] Adm Physician: Ordered by: ZACKERY RODRIGUEZ DO Report #: [id number] Location: ER Room/Bed: Procedure: [id number] D X/HIP RIGHT 2-3 VW (+/- PELVIS) Exam Date: Exam Julian e: REPORT STATUS: Signed EXAM: HIP RIGHT 2-3 VW (+/- PELVIS) DATE: 04/27/2019 7:04 PM INDICATION: rt hip pain COMPARISON: None FINDINGS: AP pelvis: Sin gle view of the pelvis shows no displaced fracture of the pelvis or left hip. The hip joint spaces are preserved and symmetric. There are degenerative goode es lower lumbar spine. Surgical clips are seen in the central pelvis. Rig ht hip: 2 views of the right hip show no displaced fracture or dislocation. Th e joint space is maintained. There is mild degenerative change with lateral ac etabular osteophyte. Soft tissue unremarkable. IMPRESSION: No acute bony abnormality. Signed by: Dr. Evgeny Nicholas M.D. on 04/27/2019 8:26 PM Dictated By: EVGENY NICHOLAS MD 25 Transcribed By: ABRAHAM on 04/27/192025 COPY TO: ZACKERY RODRIGUEZ DO - CT ABD PELVIS [id number] 14:42:00 Name: JENARO MORA [facility] : 1940 Age/S: 78 / F [address] [facility] Unit #: [id number] Loc: [address] [address] Phys: Kenny Stephens DO Acct: [id number] Dis Date: Status: REG ER PHONE #: [phone] Exam Date: 04/12/2019 1426 FAX #: [phone] Reason: LLQ pain/diarrhea EXAMS: CPT CODE: [id number] CT ABD PELVIS W/CONT 99498 REASON FOR EXAM: LLQ pain/diarrhea EXAM ORDER DATE: 04/12/2019 11:46 AM Ordering: Kenny Stephens DO Attending:Kenny Stephens DO Location:[facility] PROCEDURE: - CT ABD PELVIS W/CONT COMPARISON: [...] The patient is status post hysterectomy IMPRESSION: Paraes ophageal hernia. Subcentimeter lesions within the liver suggestive of he patic cysts. Minimal stranding of the mesenteric fat in the left lower q uadrant associated with minimal thickening of the wall of the sigmoid co monty/left colon suggestive of acute diverticulitis without evidence of ab scess at 1442 Reported and signed by: Joseph Dallas M.D. PAGE 1 Signed Report (CONTINUED) Name: JENARO MORA [facility] : 1940 Age/S: 78 / F [address] Unit #: [id number] Loc: [address] [address] Phys: Kenny Stephens Acct: [id number] Dis Date: Status: REG ER PHONE #: [phone] Exam Date: 04/12/2019 1426 FAX #: [phone] Reason: LLQ pain/diarrhea EXAMS: CPT CODE: [id number] CT ABD PELVIS W/CONT 09714 <Continued> CC: Kenny Stephens DO Technologist:Chastity Gauthier,RT(R),CT CTDI: DLP: Trnscb Date/Time: 04/12/2019 (6552) Darrell Orig Print D/T: S: 04/12/2019 (7002) PAGE 2 Signed Report - CT ABD PELVIS W/[id number] 14:42:00 Name: JENARO MORA [facility] : 1940 Age/S: 78 / F [address] [facility] Unit #: [id number] Loc: [address] [address] Phys: Kenny Stephens DO Acct: [id number] Dis Date: Status: DEP ER PHONE #: [phone] Exam Date: 04/12/2019 1426 FAX #: [phone] Reason: LLQ pain/diarrhea EXAMS: CPT CODE: [id number] CT ABD PELVIS W/CONT 25787 REASON FOR EXAM: LLQ pain/diarrhea EXAM ORDER DATE: 04/12/2019 11:46 AM Ordering: Kenny Stephens DO Attending:Kenny Stephens DO Location:[facility] PROCEDURE: - CT ABD PELVIS W/CONT COMPARISON: [...] The patient is status post hysterectomy IMPRESSION: Paraes ophageal hernia. Subcentimeter lesions within the liver suggestive of he patic cysts. Minimal stranding of the mesenteric fat in the left lower q uadrant associated with minimal thickening of the wall of the sigmoid co omnty/left colon suggestive of acute diverticulitis without evidence of ab scess at 1442 Reported and signed by: Joseph Dallas M.D. PAGE 1 Signed Report (CONTINUED) Name: JENARO MORA [facility] : 1940 Age/S: 78 / F [address] Unit #: [id number] Loc: [place], [place] [address] Phys: Kenny Stephens DO Acct: [id number] Dis Date: Status: DEP ER PHONE #: [phone] Exam Date: 04/12/2019 1426 FAX #: [phone] Reason: LLQ pain/diarrhea EXAMS: CPT CODE: [id number] CT ABD PELVIS W/CONT 41784 <Continued> CC: Kenny Stephens DO Technologist:Chastity Gauthier,RT(R),CT CTDI: DLP: Trnscb Date/Time: 04/12/2019 (1442) tTOL Orig Print D/T: S: 04/12/2019 (4368) PAGE 2 Signed Report BASIC METABOLIC [id number] 13:52:00* Test Item Value Reference Range Interpretation Comments SODIUM (test code = NA) 144 mmol/L 136-145 N POTASSIUM (test code = K) 3.6 mmol/L 3.5-5.1 N CHLORIDE (test code = CL) 112.0 mmol/L 98-107 H CARBON DIOXIDE (test code = CO2) 24.0 mmol/L 21-32 N ANION GAP (test code = GAP) 11.6 10-20 N GLUCOSE (test code = GLU) 97 mg/dL 74-106 N BLOOD UREA NITROGEN (test code = BUN) 16 mg/dL 7-18 N GLOMERULAR FILTRATION RATE (test code = GFR) 54 mL/min >=60 Estimated GFR by using Modified MDRD formula.Chronic kidney disease is defined as either kidney damageor GFR <60 mL/min/1.73 m2 for >3 months. CREATININE (test code = CREAT) 1.00 mg/dL 0.55-1.02 N Note change in reference range due to change in reagent. BUN/CREATININE RATIO (test code = BUN/CREA) 15.8 10-20 N CALCIUM (test code = CA) 8.4 mg/dL 8.5-10.1 L .[facility] 04/12/19 1217HEPATIC FUNCTION [id number] 13:52:00* Test Item Value Reference Range Interpretation Comments TOTAL PROTEIN (test code = PROT) 6.7 gram/dL 6.4-8.2 N ALBUMIN (test code = ALB) 3.0 g/dL 3.4-5.0 L GLOBULIN (test code = GLOB) 3.7 gram/dL 2.7-4.2 N ALBUMIN/GLOBULIN RATIO (test code = A/G) 0.8 0.75-1.50 N BILIRUBIN TOTAL (test code = BILT) 0.50 mg/dL 0.0-1.0 N BILIRUBIN DIRECT (test code = BILD) 0.14 mg/dL 0.0-0.20 N SGOT/AST (test code = AST) 8 IUnit/L 15-37 L SGPT/ALT (test code = ALT) 13 IUnit/L 12-78 N ALKALINE PHOSPHATASE TOTAL (test code = ALKP) 98 IUnit/L 45-117 N Note change in reference range due to change in reagent. .[facility] 04/12/[id number] 13:52:00* Test Item Value Reference Range Interpretation Comments LIPASE (test code = LIP) 59 U/L 73.0-393.0 L .[facility] 04/12/19 [id number] 13:52:00* Test Item Value Reference Range Interpretation Comments TROPONIN-I (test code = TROPI) <0.015 ng/mL 0-0.045 N .[facility] 04/12/19 1217BASIC METABOLIC [id number] 13:16:00* Test Item Value Reference Range Interpretation Comments SODIUM (test code = NA) 144 mmol/L 136-145 N POTASSIUM (test code = K) 3.6 mmol/L 3.5-5.1 N CHLORIDE (test code = CL) 112.0 mmol/L 98-107 H CARBON DIOXIDE (test code = CO2) mmol/L 21-32 ANION GAP (test code = GAP) 10-20 GLUCOSE (test code = GLU) mg/dL 74-106 BLOOD UREA NITROGEN (test code = BUN) mg/dL 7-18 GLOMERULAR FILTRATION RATE (test code = GFR) mL/min >=60 CREATININE (test code = CREAT) mg/dL 0.55-1.02 BUN/CREATININE RATIO (test code = BUN/CREA) 10-20 CALCIUM (test code = CA) mg/dL 8.5-10.1 .[facility] 04/12/19 1217HEPATIC FUNCTION [id number] 13:16:00* Test Item Value Reference Range Interpretation Comments TOTAL PROTEIN (test code = PROT) gram/dL 6.4-8.2 ALBUMIN (test code = ALB) g/dL 3.4-5.0 GLOBULIN (test code = GLOB) gram/dL 2.7-4.2 ALBUMIN/GLOBULIN RATIO (test code = A/G) 0.75-1.50 BILIRUBIN TOTAL (test code = BILT) mg/dL 0.0-1.0 BILIRUBIN DIRECT (test code = BILD) mg/dL 0.0-0.20 SGOT/AST (test code = AST) IUnit/L 15-37 SGPT/ALT (test code = ALT) IUnit/L 12-78 ALKALINE PHOSPHATASE TOTAL (test code = ALKP) IUnit/L 45-117 .[facility] 04/12/19 [id number] 13:16:00* Test Item Value Reference Range Interpretation Comments LIPASE (test code = LIP) U/L 73.0-393.0 .[facility] 04/12/19 [id number] 13:16:00* Test Item Value Reference Range Interpretation Comments TROPONIN-I (test code = TROPI) ng/mL 0-0.045 .[facility] 04/12/19 1217URINALYSIS [id number] 12:13:00* Test Item Value Reference Range Interpretation Comments UA COLOR (test code = COLU) Light-Yellow YELLOW UA APPEARANCE (test code = APPU) Cloudy CLEAR A UA GLUCOSE DIPSTICK (test code = DGLUU) NEGATIVE mg/dL NEGATIVE UA BILIRUBIN DIPSTICK (test code = BILU) NEGATIVE mg/dL NEGATIVE UA KETONE DIPSTICK (test code = KETU) NEGATIVE mg/dL NEGATIVE UA SPECIFIC GRAVITY (test code = SGU) 1.011 1.001-1.035 UA BLOOD DIPSTICK (test code = JEFF) 0.1 mg/dL (1+) mg/dL NEGATIVE A UA PH DIPSTICK (test code = JAYESH) 5.5 5.0-8.0 UA PROTEIN DIPSTICK (test code = PROU) NEGATIVE mg/dL NEGATIVE UA UROBILINIOGEN DIPSTICK (test code = URO) Normal mg/dL NEGATIVE UA NITRITE DIPSTICK (test code = TRICIA) NEGATIVE NEGATIVE UA LEUKOCYTE ESTERASE W REFLEX (test code = LEUUR) 250 Hernan/u L (2+) Hernan/uL NEGATIVE A UA WBC (test code = WBCU) 11-20 per HPF 0-5 A UA RBC (test code = RBCU) 0-2 #/HPF 0-5 UA EPITHELIAL CELLS (test code = EPIU) FEW per HPF FEW UA BACTERIA (test code = BACU) MODERATE #/HPF NONE A UA MUCUS (test code = MUCU) FEW #/LPF FEW Urine Source? Clean CatchCBC W/O [id number] 11:54:00* Test Item Value Reference Range Interpretation Comments WHITE BLOOD CELL (test code = WBC) 6.5 K/mm3 4.5-12.5 N RED BLOOD CELL (test code = RBC) 4.19 mill/mm3 3.7-5.2 N HEMOGLOBIN (test code = HGB) 12.3 gram/dL 11.5-15.5 N HEMATOCRIT (test code = HCT) 36.3 % 36.0-46.0 N MEAN CELL VOLUME (test code = MCV) 86.6 fL 80-98 N MEAN CELL HGB (test code = MCH) 29.4 picogram 27.0-33.0 N MEAN CELL HGB CONCETRATION (test code = MCHC) 33.9 gram/dL 33.0-36. 0 N RED CELL DISTRIBUTION WIDTH (test code = RDW) 13.5 % 11.6-16. 2 N PLATELET COUNT (test code = PLT) 216 K/mm3 150-450 N MEAN PLATELET VOLUME (test code = MPV) 10.5 fL 6.7-11.0 N CBC W/O [id number] 11:43:00* Test Item Value Reference Range Interpretation Comments WHITE BLOOD CELL (test code = WBC) K/mm3 4.5-12.5 RED BLOOD CELL (test code = RBC) mill/mm3 3.7-5.2 HEMOGLOBIN (test code = HGB) 12.3 gram/dL 11.5-15.5 N HEMATOCRIT (test code = HCT) 36.3 % 36.0-46.0 N MEAN CELL VOLUME (test code = MCV) fL 80-98 MEAN CELL HGB (test code = MCH) picogram 27.0-33.0 MEAN CELL HGB CONCETRATION (test code = MCHC) gram/dL 33.0-36. 0 RED CELL DISTRIBUTION WIDTH (test code = RDW) % 11.6-16. 2 PLATELET COUNT (test code = PLT) K/mm3 150-450 MEAN PLATELET VOLUME (test code = MPV) fL 6.7-11.0 [id number] 11:59:00* Test Item Value Reference Range Interpretation Comments GLUBED (test code = GLUBED) 93 mg/dL 74-106 N Performed by certified saturator operator at [facility] - CT HEAD/BRAIN W/O [id number] 11:58:00 Name: JENARO MORA C [facility] : 1940 Age/S: 78 / F [address] [facility] Unit #: [id number] Loc: [place] [address] Phys: Heidy Russell MD Acct: [id number] Dis Date: 03/29/2019 Status: DIS IN PHONE #: [phone] Exam Date: 03/28/2019 1147 FAX #: [phone] Reason: dizziness EXAMS: CPT CODE: [id number] CT HEAD/BRAIN W/O CONT 33525 HISTORY: Dizziness. COMPARISON: None available. CT brain [...] Davis M.D. CC: Heidy Villarreal MD; Jeromy Glez MD Technologist:Loly Gauthier RT(R)(CT) CTDI: DLP: Trnscb Date/Time: 03/28/2019 (2793) t.SDR .TH4 Orig Print D/T: S: 03/28/2019 (8609) PAGE 1 Signed Report - CT HEAD/BRAIN W/O [id number] 11:58:00 Name: JENARO MORA [facility] : 1940 Age/S: 78 / F [address] [facility] [address] Unit #: [id number] Loc: [place] [address] Phys: Heidy Russell MD Acct: [id number] Dis Date: Status: REG ER PHONE #: [phone] Exam Date: 03/28/2019 1147 FAX #: [phone] Reason: dizziness EXAMS: CPT CODE: [id number] CT HEAD/BRAIN W/O CONT 38636 HISTORY: Dizziness. COMPARISON: None available. CT brain [...] Davis M.D. CC: Heidy Russell MD; Jeromy Glez MD Technologist:Loly Gauthier RT(R)(CT) CTDI: DLP: Trnscb Date/Time: 03/28/2019 (4748) t.DINESHR.TH4 Orig Print D/T: S: 03/28/2019 (6489) PAGE 1 Signed Report BASIC METABOLIC [id number] 11:52:00* Test Item Value Reference Range Interpretation Comments SODIUM (test code = NA) 141 mmol/L 136-145 N POTASSIUM (test code = K) 3.7 mmol/L 3.5-5.1 N CHLORIDE (test code = CL) 109.0 mmol/L 98-107 H CARBON DIOXIDE (test code = CO2) 23.0 mmol/L 21-32 N ANION GAP (test code = GAP) 12.7 10-20 N GLUCOSE (test code = GLU) 122 mg/dL 74-106 H BLOOD UREA NITROGEN (test code = BUN) 19 mg/dL 7-18 H GLOMERULAR FILTRATION RATE (test code = GFR) > 60 mL/min >=60 Estimated GFR by using Modified MDRD formula.Chronic kidney disease is defined as either kidney damageor GFR <60 mL/min/1.73 m2 for >3 months. CREATININE (test code = CREAT) 0.90 mg/dL 0.55-1.02 N Note change in reference range due to change in reagent. BUN/CREATININE RATIO (test code = BUN/CREA) 21.1 10-20 H CALCIUM (test code = CA) 9.1 mg/dL 8.5-10.1 N [id number] 11:52:00* Test Item Value Reference Range Interpretation Comments TROPONIN-I (test code = TROPI) <0.015 ng/mL 0-0.045 N URINALYSIS [id number] 11:52:00* Test Item Value Reference Range Interpretation Comments UA COLOR (test code = COLU) Light-Yellow YELLOW UA APPEARANCE (test code = APPU) Cloudy CLEAR A UA GLUCOSE DIPSTICK (test code = DGLUU) NEGATIVE mg/dL NEGATIVE UA BILIRUBIN DIPSTICK (test code = BILU) NEGATIVE mg/dL NEGATIVE UA KETONE DIPSTICK (test code = KETU) NEGATIVE mg/dL NEGATIVE UA SPECIFIC GRAVITY (test code = SGU) 1.014 1.001-1.035 UA BLOOD DIPSTICK (test code = JEFF) 0.03 mg/dL (Trace) mg/dL NEGATI VE A UA PH DIPSTICK (test code = JAYESH) 6.5 5.0-8.0 UA PROTEIN DIPSTICK (test code = PROU) NEGATIVE mg/dL NEGATIVE UA UROBILINIOGEN DIPSTICK (test code = URO) Normal mg/dL NEGATIVE UA NITRITE DIPSTICK (test code = TRICIA) POSITIVE NEGATIVE A UA LEUKOCYTE ESTERASE W REFLEX (test code = LEUUR) 250 Hernan/u L (2+) Hernan/uL NEGATIVE A UA WBC (test code = WBCU) 6-10 per HPF 0-5 A UA RBC (test code = RBCU) 0-2 #/HPF 0-5 UA EPITHELIAL CELLS (test code = EPIU) MOD per HPF FEW UA BACTERIA (test code = BACU) MANY #/HPF NONE A UA MUCUS (test code = MUCU) FEW #/LPF FEW Urine Source? Clean CatchBASIC METABOLIC [id number] 11:41:00* Test Item Value Reference Range Interpretation Comments SODIUM (test code = NA) 141 mmol/L 136-145 N POTASSIUM (test code = K) 3.7 mmol/L 3.5-5.1 N CHLORIDE (test code = CL) 109.0 mmol/L 98-107 H CARBON DIOXIDE (test code = CO2) mmol/L 21-32 ANION GAP (test code = GAP) 10-20 GLUCOSE (test code = GLU) mg/dL 74-106 BLOOD UREA NITROGEN (test code = BUN) mg/dL 7-18 GLOMERULAR FILTRATION RATE (test code = GFR) mL/min >=60 CREATININE (test code = CREAT) mg/dL 0.55-1.02 BUN/CREATININE RATIO (test code = BUN/CREA) 10-20 CALCIUM (test code = CA) mg/dL 8.5-10.1 [id number] 11:41:00* Test Item Value Reference Range Interpretation Comments TROPONIN-I (test code = TROPI) ng/mL 0-0.045 CBC W/O [id number] 11:30:00* Test Item Value Reference Range Interpretation Comments WHITE BLOOD CELL (test code = WBC) 6.0 K/mm3 4.5-12.5 N RED BLOOD CELL (test code = RBC) 4.84 mill/mm3 3.7-5.2 N HEMOGLOBIN (test code = HGB) 14.0 gram/dL 11.5-15.5 N HEMATOCRIT (test code = HCT) 41.2 % 36.0-46.0 N MEAN CELL VOLUME (test code = MCV) 85.1 fL 80-98 N MEAN CELL HGB (test code = MCH) 28.9 picogram 27.0-33.0 N MEAN CELL HGB CONCETRATION (test code = MCHC) 34.0 gram/dL 33.0-36. 0 N RED CELL DISTRIBUTION WIDTH (test code = RDW) 13.3 % 11.6-16. 2 N PLATELET COUNT (test code = PLT) 276 K/mm3 150-450 N MEAN PLATELET VOLUME (test code = MPV) 10.2 fL 6.7-11.0 N URINALYSIS [id number] 11:18:00* Test Item Value Reference Range Interpretation Comments UA COLOR (test code = COLU) Light-Yellow YELLOW UA APPEARANCE (test code = APPU) Cloudy CLEAR A UA GLUCOSE DIPSTICK (test code = DGLUU) NEGATIVE mg/dL NEGATIVE UA BILIRUBIN DIPSTICK (test code = BILU) NEGATIVE mg/dL NEGATIVE UA KETONE DIPSTICK (test code = KETU) NEGATIVE mg/dL NEGATIVE UA SPECIFIC GRAVITY (test code = SGU) 1.014 1.001-1.035 UA BLOOD DIPSTICK (test code = JEFF) 0.03 mg/dL (Trace) mg/dL NEGATI VE A UA PH DIPSTICK (test code = JAYESH) 6.5 5.0-8.0 UA PROTEIN DIPSTICK (test code = PROU) NEGATIVE mg/dL NEGATIVE UA UROBILINIOGEN DIPSTICK (test code = URO) Normal mg/dL NEGATIVE UA NITRITE DIPSTICK (test code = TRICIA) POSITIVE NEGATIVE A UA LEUKOCYTE ESTERASE W REFLEX (test code = LEUUR) 250 Hernan/u L (2+) Hernan/uL NEGATIVE A UA WBC (test code = WBCU) per HPF 0-5 UA RBC (test code = RBCU) per HPF 0-5 UA EPITHELIAL CELLS (test code = EPIU) per HPF Few UA BACTERIA (test code = BACU) per HPF NONE Urine Source? Clean CatchBASIC METABOLIC [id number] 07:10:00* Test Item Value Reference Range Interpretation Comments SODIUM (test code = NA) 143 mmol/L 136-145 N POTASSIUM (test code = K) 3.7 mmol/L 3.5-5.1 N CHLORIDE (test code = CL) 113.0 mmol/L 98-107 H CARBON DIOXIDE (test code = CO2) 21.0 mmol/L 21-32 N ANION GAP (test code = GAP) 12.7 10-20 N GLUCOSE (test code = GLU) 98 mg/dL 74-106 N BLOOD UREA NITROGEN (test code = BUN) 10 mg/dL 7-18 N GLOMERULAR FILTRATION RATE (test code = GFR) > 60 mL/min >=60 Estimated GFR by using Modified MDRD formula.Chronic kidney disease is defined as either kidney damageor GFR <60 mL/min/1.73 m2 for >3 months. CREATININE (test code = CREAT) 0.80 mg/dL 0.55-1.02 N Note change in reference range due to change in reagent. BUN/CREATININE RATIO (test code = BUN/CREA) 12.9 10-20 N CALCIUM (test code = CA) 8.5 mg/dL 8.5-10.1 N CBC W/AUTO [id number] 06:30:00* Test Item Value Reference Range Interpretation Comments WHITE BLOOD CELL (test code = WBC) 5.0 K/mm3 4.5-12.5 N RED BLOOD CELL (test code = RBC) 4.16 mill/mm3 3.7-5.2 N HEMOGLOBIN (test code = HGB) 12.0 gram/dL 11.5-15.5 N HEMATOCRIT (test code = HCT) 36.2 % 36.0-46.0 N MEAN CELL VOLUME (test code = MCV) 87.0 fL 80-98 N MEAN CELL HGB (test code = MCH) 28.8 picogram 27.0-33.0 N MEAN CELL HGB CONCETRATION (test code = MCHC) 33.1 gram/dL 33.0-36. 0 N RED CELL DISTRIBUTION WIDTH (test code = RDW) 13.6 % 11.6-16. 2 N RED CELL DISTRIBUTION WIDTH SD (test code = RDW-SD) 42.8 fL 37 .0-51.0 N PLATELET COUNT (test code = PLT) 206 K/mm3 150-450 N MEAN PLATELET VOLUME (test code = MPV) 10.4 fL 6.7-11.0 N NEUTROPHIL % (test code = NT%) 57.1 % 39.0-69.0 N IMMATURE GRANULOCYTE % (test code = IG%) 0.6 % 0.0-5.0 N LYMPHOCYTE % (test code = LY%) 24.3 % 25.0-55.0 L MONOCYTE % (test code = MO%) 11.0 % 0.0-10.0 H EOSINOPHIL % (test code = EO%) 6.2 % 0.0-5.0 H BASOPHIL % (test code = BA%) 0.8 % 0.0-1.0 N NUCLEATED RBC % (test code = NRBC%) 0.0 % 0-0 N NEUTROPHIL # (test code = NT#) 2.84 K/mm3 1.8-7.7 N IMMATURE GRANULOCYTE # (test code = IG#) 0.03 x10 3/uL 0-0.03 N LYMPHOCYTE # (test code = LY#) 1.21 K/mm3 1.0-5.0 N MONOCYTE # (test code = MO#) 0.55 K/mm3 0-0.8 N EOSINOPHIL # (test code = EO#) 0.31 K/mm3 0.0-0.5 N BASOPHIL # (test code = BA#) 0.04 K/mm3 0.0-0.2 N NUCLEATED RBC # (test code = NRBC#) 0.00 K/mm3 0.0-0.1 N MANUAL DIFF REQUIRED (test code = MDIFF) NO CBC W/AUTO [id number] 06:25:00* Test Item Value Reference Range Interpretation Comments WHITE BLOOD CELL (test code = WBC) K/mm3 4.5-12.5 RED BLOOD CELL (test code = RBC) mill/mm3 3.7-5.2 HEMOGLOBIN (test code = HGB) 12.0 gram/dL 11.5-15.5 N HEMATOCRIT (test code = HCT) 36.2 % 36.0-46.0 N MEAN CELL VOLUME (test code = MCV) fL 80-98 MEAN CELL HGB (test code = MCH) picogram 27.0-33.0 MEAN CELL HGB CONCETRATION (test code = MCHC) gram/dL 33.0-36. 0 RED CELL DISTRIBUTION WIDTH (test code = RDW) % 11.6-16. 2 RED CELL DISTRIBUTION WIDTH SD (test code = RDW-SD) fL 37 .0-51.0 PLATELET COUNT (test code = PLT) K/mm3 150-450 MEAN PLATELET VOLUME (test code = MPV) fL 6.7-11.0 NEUTROPHIL % (test code = NT%) % 39.0-69.0 IMMATURE GRANULOCYTE % (test code = IG%) % 0.0-5.0 LYMPHOCYTE % (test code = LY%) % 25.0-55.0 MONOCYTE % (test code = MO%) % 0.0-10.0 EOSINOPHIL % (test code = EO%) % 0.0-5.0 BASOPHIL % (test code = BA%) % 0.0-1.0 NEUTROPHIL # (test code = NT#) K/mm3 1.8-7.7 LYMPHOCYTE # (test code = LY#) K/mm3 1.0-5.0 MONOCYTE # (test code = MO#) K/mm3 0-0.8 EOSINOPHIL # (test code = EO#) K/mm3 0.0-0.5 BASOPHIL # (test code = BA#) K/mm3 0.0-0.2 [id number] 02:16:00* Test Item Value Reference Range Interpretation Comments TROPONIN-I (test code = TROPI) <0.015 ng/mL 0-0.045 N COMMENTS TO [employer] NETWORK ANALYST: COLLECT 3 HOURS AFTER PREVIOUS [id number] 22:19:00* Test Item Value Reference Range Interpretation Comments TROPONIN-I (test code = TROPI) <0.015 ng/mL 0-0.045 N COMMENTS TO [employer] NETWORK ANALYST: COLLECT 3 HOURS AFTER PREVIOUS SAMPLEB-TYPE NATRIURETIC [id number] 20:20:00* Test Item Value Reference Range Interpretation Comments B-TYPE NATRIURETIC PEPTIDE (test code = BNP) 57.22 pgram/mL 0-100 N CBC W/O [id number] 18:16:00* Test Item Value Reference Range Interpretation Comments WHITE BLOOD CELL (test code = WBC) 8.6 K/mm3 4.5-12.5 N RED BLOOD CELL (test code = RBC) 4.52 mill/mm3 3.7-5.2 N HEMOGLOBIN (test code = HGB) 13.3 gram/dL 11.5-15.5 N HEMATOCRIT (test code = HCT) 39.9 % 36.0-46.0 N MEAN CELL VOLUME (test code = MCV) 88.3 fL 80-98 N MEAN CELL HGB (test code = MCH) 29.4 picogram 27.0-33.0 N MEAN CELL HGB CONCETRATION (test code = MCHC) 33.3 gram/dL 33.0-36. 0 N RED CELL DISTRIBUTION WIDTH (test code = RDW) 13.7 % 11.6-16. 2 N PLATELET COUNT (test code = PLT) 238 K/mm3 150-450 N MEAN PLATELET VOLUME (test code = MPV) 10.7 fL 6.7-11.0 N - CT ABD PELVIS [id number] 17:56:00 Name: JENARO MORA [facility] : 1940 Age/S: 78 / F [address] [facility] [address] [facility] Unit #: [id number] Loc: [place] [address] Phys: Ancelmo Hilario MD Acct: [id number] Dis Date: Status: REG ER PHONE #: [phone] Exam Date: 01/15/2019 1742 FAX #: [phone] Reason: abdominal pain EXAMS: CPT CODE: [id number] CT ABD PELVIS W/CONT 84440 EXAM: CT of the abdomen and pelvis [...] signed by: Catalino Swain M.D. CC: Ancelmo Hliario MD Technologist:Rosy Morrell RT(R),CT; CTDI: DLP: Trnscb Date/Time: 01/15/2019 (1756) t.DINESHR.GRW Orig Print D/T: S: 01/15/2019 (7524) PAGE 1 Signed Report BASIC METABOLIC [id number] 17:00:00* Test Item Value Reference Range Interpretation Comments SODIUM (test code = NA) 143 mmol/L 136-145 N POTASSIUM (test code = K) 3.8 mmol/L 3.5-5.1 N CHLORIDE (test code = CL) 110.0 mmol/L 98-107 H CARBON DIOXIDE (test code = CO2) 22.0 mmol/L 21-32 N ANION GAP (test code = GAP) 14.8 10-20 N GLUCOSE (test code = GLU) 91 mg/dL 74-106 N BLOOD UREA NITROGEN (test code = BUN) 20 mg/dL 7-18 H GLOMERULAR FILTRATION RATE (test code = GFR) 48 mL/min >=60 Estimated GFR by using Modified MDRD formula.Chronic kidney disease is defined as either kidney damageor GFR <60 mL/min/1.73 m2 for >3 months. CREATININE (test code = CREAT) 1.10 mg/dL 0.55-1.02 H Note change in reference range due to change in reagent. BUN/CREATININE RATIO (test code = BUN/CREA) 18.0 10-20 N CALCIUM (test code = CA) 9.4 mg/dL 8.5-10.1 N [id number] 17:00:00* Test Item Value Reference Range Interpretation Comments TROPONIN-I (test code = TROPI) <0.015 ng/mL 0-0.045 N HEPATIC FUNCTION [id number] 17:00:00* Test Item Value Reference Range Interpretation Comments TOTAL PROTEIN (test code = PROT) 7.5 gram/dL 6.4-8.2 N ALBUMIN (test code = ALB) 3.5 g/dL 3.4-5.0 N GLOBULIN (test code = GLOB) 4.0 gram/dL 2.7-4.2 N ALBUMIN/GLOBULIN RATIO (test code = A/G) 0.9 0.75-1.50 N BILIRUBIN TOTAL (test code = BILT) 0.40 mg/dL 0.0-1.0 N BILIRUBIN DIRECT (test code = BILD) 0.10 mg/dL 0.0-0.20 N SGOT/AST (test code = AST) 15 IUnit/L 15-37 N SGPT/ALT (test code = ALT) 18 IUnit/L 12-78 N ALKALINE PHOSPHATASE TOTAL (test code = ALKP) 118 IUnit/L 45-117 H Note change in reference range due to change in reagent. [id number] 17:00:00* Test Item Value Reference Range Interpretation Comments LIPASE (test code = LIP) 67 U/L 73.0-393.0 L BASIC METABOLIC [id number] 16:46:00* Test Item Value Reference Range Interpretation Comments SODIUM (test code = NA) 143 mmol/L 136-145 N POTASSIUM (test code = K) 3.8 mmol/L 3.5-5.1 N CHLORIDE (test code = CL) 110.0 mmol/L 98-107 H CARBON DIOXIDE (test code = CO2) mmol/L 21-32 ANION GAP (test code = GAP) 10-20 GLUCOSE (test code = GLU) mg/dL 74-106 BLOOD UREA NITROGEN (test code = BUN) mg/dL 7-18 GLOMERULAR FILTRATION RATE (test code = GFR) mL/min >=60 CREATININE (test code = CREAT) mg/dL 0.55-1.02 BUN/CREATININE RATIO (test code = BUN/CREA) 10-20 CALCIUM (test code = CA) mg/dL 8.5-10.1 [id number] 16:46:00* Test Item Value Reference Range Interpretation Comments TROPONIN-I (test code = TROPI) ng/mL 0-0.045 - XR CHEST 1 [id number] 14:23:00 FAX: Ancelmo Hilario MD [place]: St: PRE Name: JENARO YOUNGBLOOD [facility] : [birth year] Age/S: 78/F [address] [facility] Unit #: [id number] Loc: [place] [address] Phys: Ancelmo Hilario MD Acct: [id number] Dis Date: Status: PRE ER PHONE #: [phone] Exam Date: 01/15/2019 1416 FAX #: [phone] Reason: CHEST PAIN EXAMS: CPT CODE: [id number] XR CHEST 1 V [id number] REASON FOR EXAM: CHEST PAIN EXAM ORDER DATE: 01/15/2019 2:02 PM Ordering M.D.: Ancelmo Hilario MD PROCEDURE: - XR CHEST 1 V COMPARISON: 11/16/2018 FINDINGS: Portable AP frontal view of the chest obt ained at 2:14 PM shows clear lungs without evidence of consolidation. Ther e is no evidence of effusion. The heart size is minimally enlarged. Pulmon nayeli vasculatures are unremarkable. IMPRESSION: No active disease. at 142 Reported and signed by: Joseph Dallas M.D. CC: Ancelmo Hilario MD Technologist: Rony Melo RT(R); MOHSEN PETERS RT(R) Trnscrd Date/Time/By: 01/05 (6947) : By: Darrell Orig Print D/T: S: 01/15/2019 (4273) PAGE 1 Signed Report BASIC METABOLIC [id number] 20:05:00* Test Item Value Reference Range Interpretation Comments SODIUM (test code = NA) 139 mmol/L 136-145 N POTASSIUM (test code = K) 3.6 mmol/L 3.5-5.1 N CHLORIDE (test code = CL) 109.0 mmol/L 98-107 H CARBON DIOXIDE (test code = CO2) 23.0 mmol/L 21-32 N ANION GAP (test code = GAP) 10.6 10-20 N GLUCOSE (test code = GLU) 118 mg/dL 74-106 H BLOOD UREA NITROGEN (test code = BUN) 18 mg/dL 7-18 N GLOMERULAR FILTRATION RATE (test code = GFR) 54 mL/min >=60 Estimated GFR by using Modified MDRD formula.Chronic kidney disease is defined as either kidney damageor GFR <60 mL/min/1.73 m2 for >3 months. CREATININE (test code = CREAT) 1.00 mg/dL 0.55-1.02 N Note change in reference range due to change in reagent. BUN/CREATININE RATIO (test code = BUN/CREA) 18.0 10-20 N CALCIUM (test code = CA) 8.4 mg/dL 8.5-10.1 L HEPATIC FUNCTION [id number] 20:05:00* Test Item Value Reference Range Interpretation Comments TOTAL PROTEIN (test code = PROT) 7.3 gram/dL 6.4-8.2 N ALBUMIN (test code = ALB) 3.6 g/dL 3.4-5.0 N GLOBULIN (test code = GLOB) 3.7 gram/dL 2.7-4.2 N ALBUMIN/GLOBULIN RATIO (test code = A/G) 1.0 0.75-1.50 N BILIRUBIN TOTAL (test code = BILT) 0.30 mg/dL 0.0-1.0 N BILIRUBIN DIRECT (test code = BILD) 0.08 mg/dL 0.0-0.20 N SGOT/AST (test code = AST) 15 IUnit/L 15-37 N SGPT/ALT (test code = ALT) 20 IUnit/L 12-78 N ALKALINE PHOSPHATASE TOTAL (test code = ALKP) 115 IUnit/L 45-117 N Note change in reference range due to change in reagent. [id number] 20:05:00* Test Item Value Reference Range Interpretation Comments LIPASE (test code = LIP) 84 U/L 73.0-393.0 N BASIC METABOLIC [id number] 20:01:00* Test Item Value Reference Range Interpretation Comments SODIUM (test code = NA) 139 mmol/L 136-145 N POTASSIUM (test code = K) 3.6 mmol/L 3.5-5.1 N CHLORIDE (test code = CL) 109.0 mmol/L 98-107 H CARBON DIOXIDE (test code = CO2) mmol/L 21-32 ANION GAP (test code = GAP) 10-20 GLUCOSE (test code = GLU) mg/dL 74-106 BLOOD UREA NITROGEN (test code = BUN) mg/dL 7-18 GLOMERULAR FILTRATION RATE (test code = GFR) mL/min >=60 CREATININE (test code = CREAT) mg/dL 0.55-1.02 BUN/CREATININE RATIO (test code = BUN/CREA) 10-20 CALCIUM (test code = CA) mg/dL 8.5-10.1 HEPATIC FUNCTION [id number] 20:01:00* Test Item Value Reference Range Interpretation Comments TOTAL PROTEIN (test code = PROT) gram/dL 6.4-8.2 ALBUMIN (test code = ALB) g/dL 3.4-5.0 GLOBULIN (test code = GLOB) gram/dL 2.7-4.2 ALBUMIN/GLOBULIN RATIO (test code = A/G) 0.75-1.50 BILIRUBIN TOTAL (test code = BILT) mg/dL 0.0-1.0 BILIRUBIN DIRECT (test code = BILD) mg/dL 0.0-0.20 SGOT/AST (test code = AST) IUnit/L 15-37 SGPT/ALT (test code = ALT) IUnit/L 12-78 ALKALINE PHOSPHATASE TOTAL (test code = ALKP) IUnit/L 45-117 [id number] 20:01:00* Test Item Value Reference Range Interpretation Comments LIPASE (test code = LIP) U/L 73.0-393.0 URINALYSIS [id number] 19:56:00* Test Item Value Reference Range Interpretation Comments UA COLOR (test code = COLU) LIGHT YELLOW YELLOW UA APPEARANCE (test code = APPU) CLEAR CLEAR UA GLUCOSE DIPSTICK (test code = DGLUU) NEGATIVE mg/dL NEGATIVE UA BILIRUBIN DIPSTICK (test code = BILU) NEGATIVE mg/dL NEGATIVE UA KETONE DIPSTICK (test code = KETU) NEGATIVE mg/dL NEGATIVE UA SPECIFIC GRAVITY (test code = SGU) 1.017 1.001-1.035 UA BLOOD DIPSTICK (test code = JEFF) 2+ (Moderate) mg/dL NEGATIVE A UA PH DIPSTICK (test code = JAYESH) 5.0 5.0-8.0 UA PROTEIN DIPSTICK (test code = PROU) NEGATIVE mg/dL NEGATIVE UA UROBILINIOGEN DIPSTICK (test code = URO) NEGATIVE mg/dL NEGATIVE UA NITRITE DIPSTICK (test code = TRICIA) NEGATIVE NEGATIVE UA LEUKOCYTE ESTERASE W REFLEX (test code = LEUUR) NEGATIVE Hernan/uL NEGATIVE UA WBC (test code = WBCU) 0-5 per HPF 0-5 UA RBC (test code = RBCU) 0-2 #/HPF 0-5 UA EPITHELIAL CELLS (test code = EPIU) FEW per HPF FEW UA BACTERIA (test code = BACU) FEW #/HPF NONE A UA MUCUS (test code = MUCU) FEW #/LPF FEW Urine Source? Clean CatchURINALYSIS [id number] 19:50:00* Test Item Value Reference Range Interpretation Comments UA COLOR (test code = COLU) LIGHT YELLOW YELLOW UA APPEARANCE (test code = APPU) CLEAR CLEAR UA GLUCOSE DIPSTICK (test code = DGLUU) NEGATIVE mg/dL NEGATIVE UA BILIRUBIN DIPSTICK (test code = BILU) NEGATIVE mg/dL NEGATIVE UA KETONE DIPSTICK (test code = KETU) NEGATIVE mg/dL NEGATIVE UA SPECIFIC GRAVITY (test code = SGU) 1.017 1.001-1.035 UA BLOOD DIPSTICK (test code = JEFF) 2+ (Moderate) mg/dL NEGATIVE A UA PH DIPSTICK (test code = JAYESH) 5.0 5.0-8.0 UA PROTEIN DIPSTICK (test code = PROU) NEGATIVE mg/dL NEGATIVE UA UROBILINIOGEN DIPSTICK (test code = URO) NEGATIVE mg/dL NEGATIVE UA NITRITE DIPSTICK (test code = TRICIA) NEGATIVE NEGATIVE UA LEUKOCYTE ESTERASE W REFLEX (test code = LEUUR) NEGATIVE Hernan/uL NEGATIVE UA WBC (test code = WBCU) per HPF 0-5 Urine Source? Clean Catch- CT ABD PELVIS W/O [id number] 19:40:00 Name: JENARO MORA [facility] : 1940 Age/S: 77 / F [address] Unit #: [id number] Loc: [address] [address] Phys: Kenny Stephens DO Acct: [id number] Dis Date: Status: REG ER PHONE #: Exam Date: 09/06/20181915 FAX #: [phone] Reason: Right flank pain EXAMS: CPT CODE: [id number] CT ABD PELVIS W/O CONT 07346 REASON FOR EXAM: Right flank pain EXAM ORDER DATE: 09/06/2018 7:04 PM O prem Arroela: Kenny Stephens DO PROCEDURE: - CT ABD [...] Signed by Elba Dallas on 09/06/2018 at 194 Reported and signed by: Joseph Dallas M.D. CC: Kenny Stephens DO Technologist:Tracey Crocker RT(R) CTDI: DLP: Trnscb Date/Time: 09/06/2018 (1939) [email or web address] Orig Print D/T: S: 09/06/2018 (1943) CTDI: DLP: PAGE 1 Signed Report CBC W/O DIFF 2018-09-06 19:13:00* Test Item Value Reference Range Interpretation Comments WHITE BLOOD CELL (test code = WBC) 6.7 K/mm3 4.5-12.5 N RED BLOOD CELL (test code = RBC) 4.57 mill/mm3 3.7-5.2 N HEMOGLOBIN (test code = HGB) 12.6 gram/dL 11.5-15.5 N HEMATOCRIT (test code = HCT) 40.5 % 36.0-46.0 N MEAN CELL VOLUME (test code = MCV) 88.6 fL 80-98 N MEAN CELL HGB (test code = MCH) 27.6 picogram 27.0-33.0 N MEAN CELL HGB CONCETRATION (test code = MCHC) 31.1 gram/dL 33.0-36. 0 L RED CELL DISTRIBUTION WIDTH (test code = RDW) 13.7 % 11.6-16. 2 N PLATELET COUNT (test code = PLT) 245 K/mm3 150-450 N MEAN PLATELET VOLUME (test code = MPV) 10.4 fL 6.7-11.0 N CBC W/O [id number] 19:12:00* Test Item Value Reference Range Interpretation Comments WHITE BLOOD CELL (test code = WBC) K/mm3 4.5-12.5 RED BLOOD CELL (test code = RBC) mill/mm3 3.7-5.2 HEMOGLOBIN (test code = HGB) 12.6 gram/dL 11.5-15.5 N HEMATOCRIT (test code = HCT) 40.5 % 36.0-46.0 N MEAN CELL VOLUME (test code = MCV) fL 80-98 MEAN CELL HGB (test code = MCH) picogram 27.0-33.0 MEAN CELL HGB CONCETRATION (test code = MCHC) gram/dL 33.0-36. 0 RED CELL DISTRIBUTION WIDTH (test code = RDW) % 11.6-16. 2 PLATELET COUNT (test code = PLT) K/mm3 150-450 MEAN PLATELET VOLUME (test code = MPV) fL 6.7-11.0 - CT ABD PELVIS [id number] 00:29:00 Name: JENARO MORA [facility] : 1940 Age/S: 77 [facility] [address] [facility] [address] #: [id number] Loc: [address] [address] Phys: Kenny Stephens DO Acct: [id number] Dis Date: Status: REG ER PHONE #: [phone] Exam Date: 08/09/2018 2350 FAX #: [phone] Reason: pain EXAMS: CPT CODE: [id number] CT ABD PELVIS W/CONT 98805 EXAM: - CT ABD PELVIS W/CONT HISTORY: [...] spine. PAGE 1 Signed Report (CONTINUED) Name: MORGANYAMINI [facility] : 1940 Age/S: 77 / F [address] Unit #: [id number] Loc: [place] [address] Phys: Kenny Stephens DO Acct: [id number] Dis Date: Status: REG ER PHONE #: [phone] Exam Date: 08/09/2018 2350 FAX #: [phone] Reason: pain EXAMS: CPT CODE: [id number] CT ABD PELVIS W/CONT 44902 <Continued> at 0029 Reported and signed by: Angus Woodard MD CC: Jeromy Glez MD; Kenny Stephens DO Technologist:CECE ONEAL, RT CTDI: DLP: Trnscb Date/Time: 08/10/2018 (28) [email or web address] Orig Print D/T: S: 08/10/2018 (31) CTDI: DLP: PAGE 2 Signed Report URINALYSIS [id number] 23:38:00* Test Item Value Reference Range Interpretation Comments UA COLOR (test code = COLU) YELLOW YELLOW UA APPEARANCE (test code = APPU) SLIGHTLY CLOUDY CLEAR A UA GLUCOSE DIPSTICK (test code = DGLUU) NEGATIVE mg/dL NEGATIVE UA BILIRUBIN DIPSTICK (test code = BILU) NEGATIVE mg/dL NEGATIVE UA KETONE DIPSTICK (test code = KETU) Negative mg/dL NEGATIVE UA SPECIFIC GRAVITY (test code = SGU) 1.020 1.001-1.035 UA BLOOD DIPSTICK (test code = JEFF) 2+ (Moderate) NEGATIVE A UA PH DIPSTICK (test code = JAYESH) 5.0 5.0-8.0 UA PROTEIN DIPSTICK (test code = PROU) Negative mg/dL NEGATIVE UA UROBILINIOGEN DIPSTICK (test code = URO) NEGATIVE mg/dL NEGATIVE UA NITRITE DIPSTICK (test code = TRICIA) NEGATIVE NEGATIVE UA LEUKOCYTE ESTERASE W REFLEX (test code = LEUUR) NEGATIVE NEG ATIVE UA WBC (test code = WBCU) 0-5 #/HPF 0-5 UA RBC (test code = RBCU) 0-2 #/HPF 0-5 UA EPITHELIAL CELLS (test code = EPIU) MOD per HPF FEW UA BACTERIA (test code = BACU) MANY #/HPF NONE A UA HYALINE CAST (test code = HYALU) 0-2 #/LPF 0-5 UA MUCUS (test code = MUCU) FEW #/LPF FEW Urine Source? Clean CatchBASIC METABOLIC [id number] 21:46:00* Test Item Value Reference Range Interpretation Comments SODIUM (test code = NA) 140 mmol/L 136-145 N POTASSIUM (test code = K) 3.4 mmol/L 3.5-5.1 L CHLORIDE (test code = CL) 108.0 mmol/L 98-107 H CARBON DIOXIDE (test code = CO2) 24.0 mmol/L 21-32 N ANION GAP (test code = GAP) 11.4 10-20 N GLUCOSE (test code = GLU) 106 mg/dL 74-106 N BLOOD UREA NITROGEN (test code = BUN) 15 mg/dL 7-18 N GLOMERULAR FILTRATION RATE (test code = GFR) 54 mL/min >=60 Estimated GFR by using Modified MDRD formula.Chronic kidney disease is defined as either kidney damageor GFR <60 mL/min/1.73 m2 for >3 months. CREATININE (test code = CREAT) 1.00 mg/dL 0.55-1.02 N Note change in reference range due to change in reagent. BUN/CREATININE RATIO (test code = BUN/CREA) 15.0 10-20 N CALCIUM (test code = CA) 8.1 mg/dL 8.5-10.1 L HEPATIC FUNCTION [id number] 21:46:00* Test Item Value Reference Range Interpretation Comments TOTAL PROTEIN (test code = PROT) 7.4 gram/dL 6.4-8.2 N ALBUMIN (test code = ALB) 3.2 g/dL 3.4-5.0 L GLOBULIN (test code = GLOB) 4.2 gram/dL 2.7-4.2 N ALBUMIN/GLOBULIN RATIO (test code = A/G) 0.8 0.75-1.50 N BILIRUBIN TOTAL (test code = BILT) 0.50 mg/dL 0.0-1.0 N BILIRUBIN DIRECT (test code = BILD) 0.16 mg/dL 0.0-0.20 N SGOT/AST (test code = AST) 15 IUnit/L 15-37 N SGPT/ALT (test code = ALT) 24 IUnit/L 12-78 N ALKALINE PHOSPHATASE TOTAL (test code = ALKP) 118 IUnit/L 45-117 H Note change in reference range due to change in reagent. [id number] 21:46:00* Test Item Value Reference Range Interpretation Comments LIPASE (test code = LIP) 64 U/L 73.0-393.0 L [id number] 21:46:00* Test Item Value Reference Range Interpretation Comments TROPONIN-I (test code = TROPI) <0.015 ng/mL 0-0.045 N CBC W/O [id number] 21:43:00* Test Item Value Reference Range Interpretation Comments WHITE BLOOD CELL (test code = WBC) 9.2 K/mm3 4.5-12.5 N RED BLOOD CELL (test code = RBC) 4.39 mill/mm3 3.7-5.2 N HEMOGLOBIN (test code = HGB) 12.4 gram/dL 11.5-15.5 N HEMATOCRIT (test code = HCT) 37.7 % 36.0-46.0 N MEAN CELL VOLUME (test code = MCV) 85.9 fL 80-98 N MEAN CELL HGB (test code = MCH) 28.2 picogram 27.0-33.0 N MEAN CELL HGB CONCETRATION (test code = MCHC) 32.9 gram/dL 33.0-36. 0 L RED CELL DISTRIBUTION WIDTH (test code = RDW) 13.4 % 11.6-16. 2 N PLATELET COUNT (test code = PLT) 258 K/mm3 150-450 N MEAN PLATELET VOLUME (test code = MPV) 10.9 fL 6.7-11.0 N CBC W/O [id number] 21:40:00* Test Item Value Reference Range Interpretation Comments WHITE BLOOD CELL (test code = WBC) K/mm3 4.5-12.5 RED BLOOD CELL (test code = RBC) mill/mm3 3.7-5.2 HEMOGLOBIN (test code = HGB) 12.4 gram/dL 11.5-15.5 N HEMATOCRIT (test code = HCT) 37.7 % 36.0-46.0 N MEAN CELL VOLUME (test code = MCV) fL 80-98 MEAN CELL HGB (test code = MCH) picogram 27.0-33.0 MEAN CELL HGB CONCETRATION (test code = MCHC) gram/dL 33.0-36. 0 RED CELL DISTRIBUTION WIDTH (test code = RDW) % 11.6-16. 2 PLATELET COUNT (test code = PLT) K/mm3 150-450 MEAN PLATELET VOLUME (test code = MPV) fL 6.7-11.0 BASIC METABOLIC [id number] 21:36:00* Test Item Value Reference Range Interpretation Comments SODIUM (test code = NA) 140 mmol/L 136-145 N POTASSIUM (test code = K) 3.4 mmol/L 3.5-5.1 L CHLORIDE (test code = CL) 108.0 mmol/L 98-107 H CARBON DIOXIDE (test code = CO2) mmol/L 21-32 ANION GAP (test code = GAP) 10-20 GLUCOSE (test code = GLU) mg/dL 74-106 BLOOD UREA NITROGEN (test code = BUN) mg/dL 7-18 GLOMERULAR FILTRATION RATE (test code = GFR) mL/min >=60 CREATININE (test code = CREAT) mg/dL 0.55-1.02 BUN/CREATININE RATIO (test code = BUN/CREA) 10-20 CALCIUM (test code = CA) mg/dL 8.5-10.1 HEPATIC FUNCTION [id number] 21:36:00* Test Item Value Reference Range Interpretation Comments TOTAL PROTEIN (test code = PROT) gram/dL 6.4-8.2 ALBUMIN (test code = ALB) g/dL 3.4-5.0 GLOBULIN (test code = GLOB) gram/dL 2.7-4.2 ALBUMIN/GLOBULIN RATIO (test code = A/G) 0.75-1.50 BILIRUBIN TOTAL (test code = BILT) mg/dL 0.0-1.0 BILIRUBIN DIRECT (test code = BILD) mg/dL 0.0-0.20 SGOT/AST (test code = AST) IUnit/L 15-37 SGPT/ALT (test code = ALT) IUnit/L 12-78 ALKALINE PHOSPHATASE TOTAL (test code = ALKP) IUnit/L 45-117 [id number] 21:36:00* Test Item Value Reference Range Interpretation Comments LIPASE (test code = LIP) U/L 73.0-393.0 [id number] 21:36:00* Test Item Value Reference Range Interpretation Comments TROPONIN-I (test code = TROPI) ng/mL 0-0.045 - CT HEAD/BRAIN W/O [id number] 19:35:00 Name: JENARO MORA [facility] : 1940 Age/S: 77 / F [address] Unit #: [id number] Loc: [place] [address] Phys: Kenny Stephens DO Acct: [id number] Dis Date: Status: REG ER PHONE #: [phone] Exam Date: 07/05/2018 1838 FAX #: [phone] Reason: dizzy EXAMS: CPT CODE: [id number] CT HEAD/BRAIN W/O CONT 13020 EXAM: CT of the head without contrast; [...] signed by: Catalino Swain M.D. CC: Jeromy Glez MD; Kenny Stephens DO Technologist:Tracey Crocker RT(R); SELWYN He CTDI: DLP: Trnscb Date/Time: 07/05/2018 (1934) [email or web address] Orig Print D/T: S: 07/05/2018 (1937) CTDI: DLP: PAGE 1 Signed Report - XR CHEST 1 V 2018-07-05 19:21:00 FAX: Jeromy Huizar MD [phone] [place]: B St: REG FAX: Kenny Stephens DO Name: JENARO MORA [facility] : 1940 Age[facility]S: 77/F [address] [facility]: [id number] Loc: [place] [address] Phys: Kenny Stephens DO Acct: [id number] Dis Date: Status: REG ER PHONE #: [phone] Exam Date: 07/05/2018 190 FAX #: [phone] Reason: dizzy EXAMS: CPT CODE: [id number] XR CHEST 1 V 97805 EXAM: Chest X-ray, 1 view; CLINICAL HISTORY: Dizziness, headache; FINDINGS: The lungs are clear, no infiltrates, no edema; no effusions; no pneumothorax; normal cardiomediastinal silhouette. No change compared with a study from June 10, 2017. IMPRESSION: Normal chest x-ray. at 1921 Reported and signed by: Catalino Swain M.D. CC: Jeromy Glez MD; Kenny Stephens DO Technologist: IRISH WHIPPLE; Tray Parker, RT(R Trnscrd Date/Time/By: 07/05/2018 (1920) : By: [email or web address] Orig Print D/T: S: 07/05/2018 (1924) PAGE 1 Signed Report BASIC METABOLIC [id number] 19:17:00* Test Item Value Reference Range Interpretation Comments SODIUM (test code = NA) 143 mmol/L 136-145 N POTASSIUM (test code = K) 3.5 mmol/L 3.5-5.1 N CHLORIDE (test code = CL) 111.0 mmol/L 98-107 H CARBON DIOXIDE (test code = CO2) 23.0 mmol/L 21-32 N ANION GAP (test code = GAP) 12.5 10-20 N GLUCOSE (test code = GLU) 104 mg/dL 74-106 N BLOOD UREA NITROGEN (test code = BUN) 14 mg/dL 7-18 N GLOMERULAR FILTRATION RATE (test code = GFR) 54 mL/min >=60 Estimated GFR by using Modified MDRD formula.Chronic kidney disease is defined as either kidney damageor GFR <60 mL/min/1.73 m2 for >3 months. CREATININE (test code = CREAT) 1.00 mg/dL 0.55-1.02 N Note change in reference range due to change in reagent. BUN/CREATININE RATIO (test code = BUN/CREA) 13.9 10-20 N CALCIUM (test code = CA) 8.3 mg/dL 8.5-10.1 L [id number] 19:17:00* Test Item Value Reference Range Interpretation Comments TROPONIN-I (test code = TROPI) <0.015 ng/mL 0-0.045 N BASIC METABOLIC [id number] 18:50:00* Test Item Value Reference Range Interpretation Comments SODIUM (test code = NA) 143 mmol/L 136-145 N POTASSIUM (test code = K) 3.5 mmol/L 3.5-5.1 N CHLORIDE (test code = CL) 111.0 mmol/L 98-107 H CARBON DIOXIDE (test code = CO2) mmol/L 21-32 ANION GAP (test code = GAP) 10-20 GLUCOSE (test code = GLU) mg/dL 74-106 BLOOD UREA NITROGEN (test code = BUN) mg/dL 7-18 GLOMERULAR FILTRATION RATE (test code = GFR) mL/min >=60 CREATININE (test code = CREAT) mg/dL 0.55-1.02 BUN/CREATININE RATIO (test code = BUN/CREA) 10-20 CALCIUM (test code = CA) mg/dL 8.5-10.1 [id number] 18:50:00* Test Item Value Reference Range Interpretation Comments TROPONIN-I (test code = TROPI) ng/mL 0-0.045 CBC W/O [id number] 18:37:00* Test Item Value Reference Range Interpretation Comments WHITE BLOOD CELL (test code = WBC) 6.8 K/mm3 4.5-12.5 N RED BLOOD CELL (test code = RBC) 4.37 mill/mm3 3.7-5.2 N HEMOGLOBIN (test code = HGB) 12.4 gram/dL 11.5-15.5 N HEMATOCRIT (test code = HCT) 38.7 % 36.0-46.0 N MEAN CELL VOLUME (test code = MCV) 88.6 fL 80-98 N MEAN CELL HGB (test code = MCH) 28.4 picogram 27.0-33.0 N MEAN CELL HGB CONCETRATION (test code = MCHC) 32.0 gram/dL 33.0-36. 0 L RED CELL DISTRIBUTION WIDTH (test code = RDW) 13.6 % 11.6-16. 2 N PLATELET COUNT (test code = PLT) 241 K/mm3 150-450 N MEAN PLATELET VOLUME (test code = MPV) 10.4 fL 6.7-11.0 N
[2020-02-01] MEDS ORDERED: CEFTRIAXONE SOD 1 GM/NS 50 ML 50 ML IV ONE (14:45)
--- NOTE | 2020-02-01 15:33 | Diagnostic Imaging Report ---
EXAM: CT Abdomen and Pelvis WITH intravenous contrast INDICATION: Abdominal pain COMPARISON: None. TECHNIQUE: Abdomen and pelvis were scanned utilizing a multidetector helical scanner from the lung base to the pubic symphysis after administration of IV contrast. Coronal and sagittal reformations were obtained. Routine protocol was performed. Scan was performed during portal venous phase. IV CONTRAST: 100mL of Isovue 370 ORAL CONTRAST: Water RADIATION DOSE: Total DLP: 593 mGy*cm Dose modulation, iterative reconstruction, and/or weight based adjustment of the mA/kV was utilized to reduce the radiation dose to as low as reasonably achievable. FINDINGS: LOWER THORAX: No focal lung base consolidation. Moderate sliding hiatal hernia. HEPATOBILIARY: Diffuse hepatic steatosis. Subcentimeter hypodense lesions in the right and left liver are too small to definitively characterize but most likely represent cysts. No biliary ductal dilation. Status post cholecystectomy. SPLEEN: No splenomegaly. PANCREAS: No focal masses or ductal dilatation. ADRENALS: No adrenal nodules. KIDNEYS/URETERS: No hydronephrosis, stones, or solid mass lesions. Bilateral simple renal cysts measure up to 1.8 cm on the left. PELVIC ORGANS/BLADDER: Status post hysterectomy. PERITONEUM / RETROPERITONEUM: No free air or fluid. LYMPH NODES: No lymphadenopathy. VESSELS: Minimal atherosclerotic calcifications of the nonaneurysmal abdominal aorta and major branches. GI TRACT: Mild wall thickening and pericolonic fat stranding associated with several diverticuli in the distal descending colon (axial image 51). No associated free air or focal fluid collection. No other sites of abnormal bowel thickening. No bowel obstruction. BONES AND SOFT TISSUES: Levoconvex curvature of the lumbar spine. No acute osseous injury. No suspicious lytic or blastic lesions. IMPRESSION: Uncomplicated descending colon diverticulitis. Hepatic steatosis. Signed by: Anita Trujillo MD on 02/01/2020 3:30 PM
== END 2020-02-01 16:34 | disposition home or self-care (01) ==
LOC: ER 13:15
DX: K57.92 Diverticulitis of intestine, part unspecified, without perforation or abscess without bleeding (principal); N39.0 Urinary tract infection, site not specified; R10.32 Left lower quadrant pain; E87.6 Hypokalemia; I10 Essential (primary) hypertension; E03.9 Hypothyroidism, unspecified; K21.9 Gastro-esophageal reflux disease without esophagitis; E78.5 Hyperlipidemia, unspecified; M25.551 Pain in right hip
CPT/HCPCS: 36415; 74177; 80053; 81001; 85025; 99284; J0696; J7030; Q9967

== ENCOUNTER 2020-09-22 13:04 | Emergency (ER) | payer MEDICARE ==
[~2020-09-22] VITALS: Ht 152.4 cm; Wt 80.7 kg
[2020-09-22 14:22] LABS: CLARITY,URINE CLEAR (CLEAR); COLOR,URINE YELLOW (YELLOW); KETONES,URINE NEGATIVE (NEGATIVE); LEUKOCYTE ESTERASE ,URINE NEGATIVE (NEGATIVE); NITRITE,URINE NEGATIVE (NEGATIVE); PROTEIN,URINE DIPSTICK NEGATIVE (NEGATIVE); URINE UROBILINOGEN 0.2 mg/dL (0.2 - 1)
[2020-09-22 14:31] LABS: BACTERIA,URINE FEW /HPF; EPITHELIAL CELLS,URINE FEW /LPF; RBC,URINE 0-5 /HPF (0-5); WBC,URINE (MAN) 0-5 /HPF (0-5)
== END 2020-09-22 15:57 | disposition home or self-care (01) ==
LOC: ER 13:10
DX: R10.30 Lower abdominal pain, unspecified (principal); I10 Essential (primary) hypertension; E78.5 Hyperlipidemia, unspecified; M25.551 Pain in right hip; G89.29 Other chronic pain
CPT/HCPCS: 81001; 87086; 99282

== ENCOUNTER 2020-11-12 18:39 | Emergency (ER) | payer MEDICARE ==
[~2020-11-12] VITALS: Ht 152.4 cm; Wt 80.7 kg
[2020-11-12 20:13] LABS: BASOPHILS % 0.6 % (0.0-1.0); EOSINOPHILS # (AUTO) 0.2 (0.0-0.4); EOSINOPHILS % 3.4 % (0.0-6.0); HEMOGLOBIN 13.2 g/dL (12.0-16.0); LYMPHOCYTES # (AUTO) 1.5 (1.0-3.2); LYMPHOCYTES % 23.8 % (18.0-39.1); MEAN CORPUSCULAR HEMOGLOBIN 28.8 pg (28-32); MEAN CORPUSCULAR VOLUME 87.1 fL (81-99); MONOCYTES # (AUTO) 0.8 (0.2-0.8); MONOCYTES % 11.7 % (4.4-11.3); NEUTROPHILS # (AUTO) 3.9 (2.1-6.9); PLATELET COUNT 293 x10e3/uL (140-360); RED BLOOD COUNT 4.59 x10e6/uL (3.6-5.1); RED CELL DISTRIBUTION WIDTH 13.9 % (11.7-14.4)
[2020-11-12 20:16] LABS: CLARITY,URINE SL CLOUDY (CLEAR); COLOR,URINE AMBER (YELLOW); LEUKOCYTE ESTERASE ,URINE TRACE (NEGATIVE); NITRITE,URINE POSITIVE (NEGATIVE)
[2020-11-12 20:17] LABS: KETONES,URINE TRACE (NEGATIVE); PROTEIN,URINE DIPSTICK NEGATIVE (NEGATIVE); URINE UROBILINOGEN 0.2 mg/dL (0.2 - 1)
[2020-11-12 20:27] LABS: ALBUMIN 3.7 g/dL (3.5-5.0); ANION GAP 16.6 mmol/L (8-16); CALCIUM 8.9 mg/dL (8.4-10.2); CREATININE, SERUM 1.11 mg/dL (0.57-1.11); POTASSIUM 3.6 mmol/L (3.5-5.1)
[2020-11-12 20:28] LABS: BACTERIA,URINE MANY /HPF; EPITHELIAL CELLS,URINE MODERATE /LPF; RBC,URINE 0-5 /HPF (0-5); TRANSITIONAL EPI CELLS,URINE FEW
[2020-11-12] MEDS ORDERED: CEFDINIR300 MG PO (20:41)
[2020-11-12] MEDS ORDERED: DICYCLOMINE HCL20 MG PO (20:41)
== END 2020-11-12 20:44 | disposition home or self-care (01) ==
LOC: ER 20:42
DX: R19.7 Diarrhea, unspecified (principal); N39.0 Urinary tract infection, site not specified; I10 Essential (primary) hypertension; E78.5 Hyperlipidemia, unspecified; M25.551 Pain in right hip; G89.29 Other chronic pain
CPT/HCPCS: 36415; 80053; 81001; 85025; 99283

== ENCOUNTER 2021-04-13 16:50 | Emergency (ER) | payer MEDICARE, OTHER ==
[~2021-04-13] VITALS: Ht 152.4 cm; Wt 80.3 kg
[~2021-04-13 16:50] MED LIST changes: +CEFDINIR300 MG PO; +DICYCLOMINE HCL20 MG PO
[2021-04-13 17:15] LABS: BASOPHILS # (AUTO) 0.1 (0.0-0.1); BASOPHILS % 0.7 % (0.0-1.0); EOSINOPHILS # (AUTO) 0.3 (0.0-0.4); EOSINOPHILS % 3.6 % (0.0-6.0); HEMATOCRIT 37.6 % (34.2-44.1); HEMOGLOBIN 12.2 g/dL (12.0-16.0); LYMPHOCYTES # (AUTO) 1.9 (1.0-3.2); LYMPHOCYTES % 25.1 % (18.0-39.1); MEAN CORPUSCULAR HEMOGLOBIN 28.4 pg (28-32); MEAN CORPUSCULAR HGB CONC 32.4 g/dL (31-35); MEAN CORPUSCULAR VOLUME 87.6 fL (81-99); MONOCYTES # (AUTO) 0.8 (0.2-0.8); NEUTROPHILS # (AUTO) 4.5 (2.1-6.9); NEUTROPHILS % 60.3 % (38.7-80.0); PLATELET COUNT 247 x10e3/uL (140-360); RED BLOOD COUNT 4.29 x10e6/uL (3.6-5.1); RED CELL DISTRIBUTION WIDTH 13.8 % (11.7-14.4)
[2021-04-13 17:32] LABS: ALBUMIN 3.5 g/dL (3.5-5.0); ALBUMIN/GLOBULIN RATIO 1.1 (0.8-2.0); ANION GAP 13.9 mmol/L (8-16); CALCIUM 7.9 mg/dL (8.4-10.2); CREATININE, SERUM 1.03 mg/dL (0.57-1.11); POTASSIUM 3.9 mmol/L (3.5-5.1)
[2021-04-13 17:32] LABS: CLARITY,URINE HAZY (CLEAR); COLOR,URINE YELLOW (YELLOW); KETONES,URINE NEGATIVE (NEGATIVE); LEUKOCYTE ESTERASE ,URINE NEGATIVE (NEGATIVE); NITRITE,URINE NEGATIVE (NEGATIVE); PROTEIN,URINE DIPSTICK NEGATIVE (NEGATIVE); URINE UROBILINOGEN 0.2 mg/dL (0.2 - 1)
[2021-04-13 17:38] LABS: AMORPHOUS SEDIMENT,URINE FEW (FEW); BACTERIA,URINE FEW /HPF; EPITHELIAL CELLS,URINE FEW /LPF; HYALINE CASTS 0-1 (0-1); MUCUS,URINE FEW (RARE); YEAST,URINE MANY
[2021-04-13] MEDS ORDERED: IOPAMIDOL 370 MG/ML 200 ML INFUS..BTL INJ ONE (17:56)
[2021-04-13] MEDS ORDERED: SODIUM CHLORIDE 0.9% 50ML 50 ML ONE (17:56)
[2021-04-13] MEDS ORDERED: CIPRO500 MG PO (18:41)
== END 2021-04-13 18:50 | disposition home or self-care (01) ==
LOC: ER 17:05
DX: R10.30 Lower abdominal pain, unspecified (principal); N39.0 Urinary tract infection, site not specified; K57.90 Diverticulosis of intestine, part unspecified, without perforation or abscess without bleeding; K44.9 Diaphragmatic hernia without obstruction or gangrene; I10 Essential (primary) hypertension; E78.5 Hyperlipidemia, unspecified; M25.551 Pain in right hip; G89.29 Other chronic pain
CPT/HCPCS: 36415; 74177; 80053; 81001; 85025; 93005; 99283; Q9967

== ENCOUNTER 2021-06-23 11:37 | Emergency (ER) | payer MEDICARE ==
[~2021-06-23] VITALS: Ht 152.4 cm; Wt 80.3 kg
[2021-06-23 12:05] LABS: BASOPHILS % 0.5 % (0.0-1.0); EOSINOPHILS # (AUTO) 0.3 (0.0-0.4); EOSINOPHILS % 4.7 % (0.0-6.0); HEMATOCRIT 41.1 % (34.2-44.1); HEMOGLOBIN 13.2 g/dL (12.0-16.0); LYMPHOCYTES # (AUTO) 1.5 (1.0-3.2); LYMPHOCYTES % 24.6 % (18.0-39.1); MEAN CORPUSCULAR HEMOGLOBIN 28.3 pg (28-32); MEAN CORPUSCULAR HGB CONC 32.1 g/dL (31-35); MONOCYTES # (AUTO) 0.5 (0.2-0.8); MONOCYTES % 7.8 % (4.4-11.3); NEUTROPHILS # (AUTO) 3.8 (2.1-6.9); NEUTROPHILS % 62.2 % (38.7-80.0); PLATELET COUNT 249 x10e3/uL (140-360); RED BLOOD COUNT 4.67 x10e6/uL (3.6-5.1); RED CELL DISTRIBUTION WIDTH 13.7 % (11.7-14.4)
[2021-06-23 12:24] LABS: ALBUMIN 3.5 g/dL (3.5-5.0); ANION GAP 12.8 mmol/L (8-16); CALCIUM 8.3 mg/dL (8.4-10.2); CREATININE, SERUM 0.83 mg/dL (0.57-1.11); POTASSIUM 3.8 mmol/L (3.5-5.1)
[2021-06-23 12:46] LABS: CLARITY,URINE SL CLOUDY (CLEAR); COLOR,URINE YELLOW (YELLOW); KETONES,URINE NEGATIVE (NEGATIVE); LEUKOCYTE ESTERASE ,URINE SMALL (NEGATIVE); NITRITE,URINE NEGATIVE (NEGATIVE); PROTEIN,URINE DIPSTICK 1+ (NEGATIVE)
[2021-06-23 12:47] LABS: URINE UROBILINOGEN 0.2 mg/dL (0.2 - 1)
[2021-06-23 12:52] LABS: BACTERIA,URINE MODERATE /HPF; EPITHELIAL CELLS,URINE MANY /LPF; RBC,URINE 0-5 /HPF (0-5); WBC,URINE (MAN) >50 /HPF (0-5)
[2021-06-23 12:53] LABS: YEAST,URINE MODERATE
[2021-06-23] MEDS ORDERED: BENZONATATE200 MG PO (13:40)
[2021-06-23] MEDS ORDERED: CEPHALEXIN500 MG PO (13:42)
== END 2021-06-23 14:45 | disposition home or self-care (01) ==
LOC: ER 13:26
DX: U07.1 COVID-19 (principal); R05.9 Cough, unspecified; N30.90 Cystitis, unspecified without hematuria; I10 Essential (primary) hypertension; E78.5 Hyperlipidemia, unspecified; M25.551 Pain in right hip; G89.29 Other chronic pain
CPT/HCPCS: 36415; 71045; 80053; 81001; 85025; 93005; 99284; U0002

== ENCOUNTER 2021-09-01 19:10 | Emergency (ER) | payer MEDICARE, OTHER ==
[~2021-09-01] VITALS: Ht 152.4 cm; Wt 65.8 kg
[~2021-09-01 19:10] MED LIST changes: +BENZONATATE200 MG PO; +CEPHALEXIN500 MG PO
[2021-09-01 19:37] LABS: BASOPHILS # (AUTO) 0.1 (0.0-0.1); BASOPHILS % 0.8 % (0.0-1.0); EOSINOPHILS # (AUTO) 0.2 (0.0-0.4); EOSINOPHILS % 2.6 % (0.0-6.0); HEMATOCRIT 40.1 % (34.2-44.1); HEMOGLOBIN 13.3 g/dL (12.0-16.0); LYMPHOCYTES % 25.6 % (18.0-39.1); MEAN CORPUSCULAR HEMOGLOBIN 29.2 pg (28-32); MEAN CORPUSCULAR HGB CONC 33.2 g/dL (31-35); MEAN CORPUSCULAR VOLUME 88.1 fL (81-99); MONOCYTES # (AUTO) 0.8 (0.2-0.8); MONOCYTES % 10.7 % (4.4-11.3); NEUTROPHILS # (AUTO) 4.7 (2.1-6.9); PLATELET COUNT 270 x10e3/uL (140-360); RED BLOOD COUNT 4.55 x10e6/uL (3.6-5.1); RED CELL DISTRIBUTION WIDTH 14.1 % (11.7-14.4)
[2021-09-01 19:57] LABS: ALBUMIN 3.8 g/dL (3.5-5.0); ALBUMIN/GLOBULIN RATIO 1.1 (0.8-2.0); CALCIUM 8.5 mg/dL (8.4-10.2); CLARITY,URINE CLEAR (CLEAR); COLOR,URINE YELLOW (YELLOW); CREATININE, SERUM 1.05 mg/dL (0.57-1.11); KETONES,URINE NEGATIVE (NEGATIVE); LEUKOCYTE ESTERASE ,URINE MODERATE (NEGATIVE); NITRITE,URINE NEGATIVE (NEGATIVE); PROTEIN,URINE DIPSTICK NEGATIVE (NEGATIVE); URINE UROBILINOGEN 0.2 mg/dL (0.2 - 1)
[2021-09-01 19:58] LABS: AMYLASE 39 U/L (25-125); LIPASE 13 U/L (8-78)
[2021-09-01 20:03] LABS: BACTERIA,URINE MODERATE /HPF; EPITHELIAL CELLS,URINE MODERATE /LPF
[2021-09-01 20:04] LABS: YEAST,URINE RARE
[2021-09-01] MEDS ORDERED: SODIUM CHLORIDE 0.9% 50ML 50 ML ONE (20:14)
[2021-09-01] MEDS ORDERED: IOPAMIDOL 370 MG/ML 200 ML INFUS..BTL INJ ONE (20:14)
[2021-09-01] MEDS ORDERED: SODIUM CHLORIDE 0.9% 1000ML 1,000 ML IV ONE (20:15)
[2021-09-01 21:49] VITALS: BP 150/73
== END 2021-09-01 21:52 | disposition home or self-care (01) ==
LOC: ER 19:37
DX: R10.32 Left lower quadrant pain (principal); N39.0 Urinary tract infection, site not specified; R50.9 Fever, unspecified; I10 Essential (primary) hypertension; E03.9 Hypothyroidism, unspecified; M25.551 Pain in right hip; G89.29 Other chronic pain
CPT/HCPCS: 36415; 74177; 80053; 81001; 82150; 83690; 85025; 99284; J7030; Q9967

== ENCOUNTER 2021-12-17 10:15 | Emergency (ER) | payer MEDICARE ==
[~2021-12-17] VITALS: Ht 152.4 cm; Wt 65.8 kg
[~2021-12-17 10:15] MED LIST changes: +SODIUM CHLORIDE FLUSH 10 ML SYR IV PRN
[2021-12-17 11:43] LABS: BASOPHILS # (AUTO) 0.1 (0.0-0.1); CLARITY,URINE CLEAR (CLEAR); COLOR,URINE YELLOW (YELLOW); EOSINOPHILS # (AUTO) 0.2 (0.0-0.4); EOSINOPHILS % 2.3 % (0.0-6.0); HEMATOCRIT 39.5 % (34.2-44.1); HEMOGLOBIN 12.6 g/dL (12.0-16.0); LYMPHOCYTES % 25.3 % (18.0-39.1); MEAN CORPUSCULAR HEMOGLOBIN 28.7 pg (28-32); MEAN CORPUSCULAR HGB CONC 31.9 g/dL (31-35); MONOCYTES # (AUTO) 0.6 (0.2-0.8); PLATELET COUNT 279 x10e3/uL (140-360); RED BLOOD COUNT 4.39 x10e6/uL (3.6-5.1); RED CELL DISTRIBUTION WIDTH 14.1 % (11.7-14.4)
[2021-12-17 11:44] LABS: KETONES,URINE NEGATIVE (NEGATIVE); LEUKOCYTE ESTERASE ,URINE NEGATIVE (NEGATIVE); NITRITE,URINE NEGATIVE (NEGATIVE); PROTEIN,URINE DIPSTICK NEGATIVE (NEGATIVE); URINE UROBILINOGEN 0.2 mg/dL (0.2 - 1)
[2021-12-17 11:47] LABS: INR 0.93; PROTHROMBIN TIME 13.3 seconds (11.9-14.5)
[2021-12-17 11:48] LABS: PARTIAL THROMBOPLASTIN TIME 32.5 seconds (23.8-35.5)
[2021-12-17 11:58] LABS: ALANINE AMINOTRANSFERASE 13 IU/L (0-55); ALBUMIN 3.5 g/dL (3.5-5.0); ALBUMIN/GLOBULIN RATIO 0.8 (0.8-2.0); ALKALINE PHOSPHATASE 83 IU/L (40-150); ANION GAP 16.3 mmol/L (8-16); BLOOD UREA NITROGEN 23 mg/dL (7-26); BUN/CREATININE RATIO 16 (6-25); CALCIUM 8.2 mg/dL (8.4-10.2); CARBON DIOXIDE 16 mmol/L (22-29); CHLORIDE 110 mmol/L (98-107); CREATININE, SERUM 1.45 mg/dL (0.57-1.11); GLUCOSE 95 mg/dL (74-118); POTASSIUM 5.3 mmol/L (3.5-5.1); SODIUM 137 mmol/L (136-145)
[2021-12-17 12:02] LABS: LIPASE < 4 U/L (8-78)
[2021-12-17 12:08] LABS: RBC,URINE 0-5 /HPF (0-5)
[2021-12-17 12:11] LABS: BACTERIA,URINE FEW /HPF; EPITHELIAL CELLS,URINE FEW /LPF
[2021-12-17] MEDS ORDERED: IOPAMIDOL 370 MG/ML 100 ML INFUS..BTL INJ ONE (13:24)
[2021-12-17] MEDS ORDERED: METRONIDAZOLE500 MG PO (15:13)
[2021-12-17] MEDS ORDERED: CIPRO500 MG PO (15:13)
== END 2021-12-17 15:27 | disposition home or self-care (01) ==
LOC: ER 10:45
DX: R10.11 Right upper quadrant pain (principal); R10.31 Right lower quadrant pain; N39.0 Urinary tract infection, site not specified; K57.32 Diverticulitis of large intestine without perforation or abscess without bleeding; K76.9 Liver disease, unspecified; N28.1 Cyst of kidney, acquired; K44.9 Diaphragmatic hernia without obstruction or gangrene
CPT/HCPCS: 36415; 71045; 74177; 80053; 81001; 83690; 85025; 85610; 85730; 99284; Q9967

== ENCOUNTER 2022-02-01 19:10 | Emergency (ER) | payer MEDICARE, OTHER ==
[~2022-02-01] VITALS: Ht 152.4 cm; Wt 78.9 kg
[~2022-02-01 19:10] MED LIST changes: -SODIUM CHLORIDE FLUSH 10 ML SYR IV PRN
[2022-02-01] MEDS ORDERED: ONDANSETRON HCL INJ 2MG/ML 2ML 2 MG/ML VIAL IV STA (19:23)
[2022-02-01] MEDS ORDERED: Morphine 4mg INJECTION 4 MG/ML INJ IV ONE (19:30)
[2022-02-01] MEDS ORDERED: SODIUM CHLORIDE 0.9% 1000ML 1,000 ML IV ONE (19:30)
[2022-02-01 19:49] LABS: BASOPHILS # (AUTO) 0.1 (0.0-0.1); BASOPHILS % 0.6 % (0.0-1.0); EOSINOPHILS # (AUTO) 0.3 (0.0-0.4); EOSINOPHILS % 3.6 % (0.0-6.0); HEMATOCRIT 37.3 % (34.2-44.1); HEMOGLOBIN 12.3 g/dL (12.0-16.0); LYMPHOCYTES % 24.6 % (18.0-39.1); MEAN CORPUSCULAR HEMOGLOBIN 29.4 pg (28-32); MEAN CORPUSCULAR VOLUME 89.2 fL (81-99); MONOCYTES # (AUTO) 0.7 (0.2-0.8); MONOCYTES % 8.8 % (4.4-11.3); NEUTROPHILS # (AUTO) 5.2 (2.1-6.9); NEUTROPHILS % 62.3 % (38.7-80.0); PLATELET COUNT 253 x10e3/uL (140-360); RED BLOOD COUNT 4.18 x10e6/uL (3.6-5.1); RED CELL DISTRIBUTION WIDTH 14.3 % (11.7-14.4)
[2022-02-01] MEDS ORDERED: Morphine 4mg INJECTION 4 MG/ML INJ ONE (19:58)
[2022-02-01] MEDS ORDERED: ONDANSETRON HCL INJ 2MG/ML 2ML 2 MG/ML VIAL ONE (19:58)
[2022-02-01 20:08] LABS: ALBUMIN 3.5 g/dL (3.5-5.0); ANION GAP 15.4 mmol/L (8-16); CALCIUM 8.6 mg/dL (8.4-10.2); CREATININE, SERUM 0.94 mg/dL (0.57-1.11); POTASSIUM 3.4 mmol/L (3.5-5.1)
[2022-02-01 20:14] LABS: CLARITY,URINE CLEAR (CLEAR); COLOR,URINE YELLOW (YELLOW)
[2022-02-01 20:17] LABS: KETONES,URINE NEGATIVE (NEGATIVE); LEUKOCYTE ESTERASE ,URINE NEGATIVE (NEGATIVE); NITRITE,URINE NEGATIVE (NEGATIVE); PROTEIN,URINE DIPSTICK NEGATIVE (NEGATIVE); URINE UROBILINOGEN 0.2 mg/dL (0.2 - 1)
[2022-02-01 20:20] LABS: BACTERIA,URINE MODERATE /HPF; EPITHELIAL CELLS,URINE MODERATE /LPF; MUCUS,URINE MODERATE (RARE); RBC,URINE 0-5 /HPF (0-5); WBC,URINE (MAN) 0-5 /HPF (0-5)
[2022-02-01] MEDS ORDERED: IOPAMIDOL 370 MG/ML 100 ML INFUS..BTL INJ ONE (20:35)
[2022-02-01 21:41] VITALS: BP 149/85
== END 2022-02-01 21:30 | disposition home or self-care (01) ==
LOC: ER 19:17
DX: R10.32 Left lower quadrant pain (principal); K57.32 Diverticulitis of large intestine without perforation or abscess without bleeding; M25.551 Pain in right hip; G89.29 Other chronic pain; I10 Essential (primary) hypertension; E78.5 Hyperlipidemia, unspecified; K21.9 Gastro-esophageal reflux disease without esophagitis; I25.10 Atherosclerotic heart disease of native coronary artery without angina pectoris; E03.9 Hypothyroidism, unspecified; K44.9 Diaphragmatic hernia without obstruction or gangrene; K76.89 Other specified diseases of liver
CPT/HCPCS: 36415; 74177; 80053; 81001; 83690; 85025; 99284; J2270; J2405; J7030; Q9967

== ENCOUNTER 2022-02-16 02:46 | Emergency (ER) | payer MEDICARE ==
[~2022-02-16] VITALS: Ht 152.4 cm; Wt 78.9 kg
[~2022-02-16 02:46] MED LIST changes: -EPHEDRINE SULFATE INJ 50 MG/ML VIAL ONE; -FENTANYL CITRATE/PF 100MCG/2 ML INJ ONE; -HYOSCYAMINE SULFATE 0.5 MG/ML INJ ONE; -LIDOCAINE HCL 2% LOCAL INJ 5 ML SDV VIAL INJ ONE; -METOCLOPRAMIDE HCL 10 MG/2ML VIAL ONE; -ONDANSETRON HCL INJ 2MG/ML 2ML 2 MG/ML VIAL ONE; -PHENYLEPHRINE HCL 1% 10 MG/ML VIAL ONE; -PROPOFOL IV EMULSION 10 MG/ML 20 ML VIAL ONE; -VASOPRESSIN INJ 20 UNIT/ML VIAL ONE
[2022-02-16 03:25] LABS: BASOPHILS # (AUTO) 0.1 (0.0-0.1); BASOPHILS % 0.7 % (0.0-1.0); EOSINOPHILS # (AUTO) 0.4 (0.0-0.4); EOSINOPHILS % 3.4 % (0.0-6.0); HEMATOCRIT 40.4 % (34.2-44.1); HEMOGLOBIN 13.4 g/dL (12.0-16.0); LYMPHOCYTES # (AUTO) 2.5 (1.0-3.2); LYMPHOCYTES % 23.9 % (18.0-39.1); MEAN CORPUSCULAR HEMOGLOBIN 29.3 pg (28-32); MEAN CORPUSCULAR HGB CONC 33.2 g/dL (31-35); MEAN CORPUSCULAR VOLUME 88.2 fL (81-99); MONOCYTES # (AUTO) 0.8 (0.2-0.8); MONOCYTES % 7.8 % (4.4-11.3); NEUTROPHILS # (AUTO) 6.8 (2.1-6.9); NEUTROPHILS % 63.6 % (38.7-80.0); PLATELET COUNT 293 x10e3/uL (140-360); RED BLOOD COUNT 4.58 x10e6/uL (3.6-5.1); RED CELL DISTRIBUTION WIDTH 13.9 % (11.7-14.4)
[2022-02-16 03:44] LABS: ALBUMIN 3.8 g/dL (3.5-5.0); ANION GAP 16.3 mmol/L (8-16); CALCIUM 9.2 mg/dL (8.4-10.2); POTASSIUM 3.3 mmol/L (3.5-5.1)
[2022-02-16 03:45] LABS: ALBUMIN/GLOBULIN RATIO 1.1 (0.8-2.0)
== END 2022-02-16 05:09 | disposition home or self-care (01) ==
LOC: ER 03:04
DX: R42 Dizziness and giddiness (principal); R53.1 Weakness; R94.31 Abnormal electrocardiogram [ECG] [EKG]
CPT/HCPCS: 36415; 71045; 80053; 84484; 85025; 93005; 99284

== ENCOUNTER → 2022-02-16 | Day surgery (SDC) | payer MEDICARE ==
[~2022-02-16] MED LIST changes: +ALENDRONATE SOD70 MG PO; +EPHEDRINE SULFATE INJ 50 MG/ML VIAL ONE; +FENTANYL CITRATE/PF 100MCG/2 ML INJ ONE; +HYOSCYAMINE SULFATE 0.5 MG/ML INJ ONE; +LIDOCAINE HCL 2% LOCAL INJ 5 ML SDV VIAL INJ ONE; +METOCLOPRAMIDE HCL 10 MG/2ML VIAL ONE; +ONDANSETRON HCL INJ 2MG/ML 2ML 2 MG/ML VIAL ONE; +PHENYLEPHRINE HCL 1% 10 MG/ML VIAL ONE; +PROPOFOL IV EMULSION 10 MG/ML 20 ML VIAL ONE; +VASOPRESSIN INJ 20 UNIT/ML VIAL ONE
[2022-02-16 09:10] VITALS: BP 136/69
== END | disposition home or self-care (01) ==
LOC: OR 08:00
PROVIDERS: ATTEND Internal Medicine Gastroenterology
DX: K57.92 Diverticulitis of intestine, part unspecified, without perforation or abscess without bleeding (principal); D12.0 Benign neoplasm of cecum; D12.2 Benign neoplasm of ascending colon; D12.3 Benign neoplasm of transverse colon; K21.9 Gastro-esophageal reflux disease without esophagitis; H91.91 Unspecified hearing loss, right ear; R40.0 Somnolence; I10 Essential (primary) hypertension; E78.5 Hyperlipidemia, unspecified; E03.9 Hypothyroidism, unspecified; I44.0 Atrioventricular block, first degree; Z88.1 Allergy status to other antibiotic agents; Z01.810 Encounter for preprocedural cardiovascular examination; Z79.899 Other long term (current) drug therapy; Z86.16 Personal history of COVID-19
CPT/HCPCS: 45380; 45385; 93005; J1980; J2001; J2370; J2405; J2704; J2765; J3010; 45378

== ENCOUNTER 2022-03-03 15:17 | Emergency (ER) | payer MEDICARE ==
[~2022-03-03] VITALS: Ht 154.9 cm; Wt 77.1 kg
[2022-03-03 15:56] LABS: BASOPHILS # (AUTO) 0.1 (0.0-0.1); BASOPHILS % 0.4 % (0.0-1.0); EOSINOPHILS # (AUTO) 0.1 (0.0-0.4); EOSINOPHILS % 0.7 % (0.0-6.0); HEMATOCRIT 38.7 % (34.2-44.1); LYMPHOCYTES # (AUTO) 1.5 (1.0-3.2); LYMPHOCYTES % 13.3 % (18.0-39.1); MEAN CORPUSCULAR HEMOGLOBIN 29.2 pg (28-32); MEAN CORPUSCULAR HGB CONC 33.6 g/dL (31-35); MONOCYTES # (AUTO) 0.8 (0.2-0.8); MONOCYTES % 7.2 % (4.4-11.3); NEUTROPHILS # (AUTO) 8.9 (2.1-6.9); NEUTROPHILS % 77.8 % (38.7-80.0); PLATELET COUNT 305 x10e3/uL (140-360); RED BLOOD COUNT 4.45 x10e6/uL (3.6-5.1); RED CELL DISTRIBUTION WIDTH 13.7 % (11.7-14.4)
[2022-03-03] MEDS ORDERED: SODIUM CHLORIDE FLUSH 10 ML SYR IV PRN (16:00)
[2022-03-03 16:08] LABS: INR 0.97; PROTHROMBIN TIME 13.8 seconds (11.9-14.5)
[2022-03-03 16:20] LABS: ALANINE AMINOTRANSFERASE 9 IU/L (0-55); ALBUMIN 3.7 g/dL (3.5-5.0); ALBUMIN/GLOBULIN RATIO 0.9 (0.8-2.0); ALKALINE PHOSPHATASE 77 IU/L (40-150); ANION GAP 14.1 mmol/L (8-16); BLOOD UREA NITROGEN 20 mg/dL (7-26); BUN/CREATININE RATIO 20 (6-25); CALCIUM 9.4 mg/dL (8.4-10.2); CARBON DIOXIDE 19 mmol/L (22-29); CHLORIDE 105 mmol/L (98-107); CREATININE, SERUM 0.99 mg/dL (0.57-1.11); GLUCOSE 112 mg/dL (74-118); POTASSIUM 4.1 mmol/L (3.5-5.1); SODIUM 134 mmol/L (136-145)
[2022-03-03] MEDS ORDERED: ONDANSETRON HCL INJ 2MG/ML 2ML 2 MG/ML VIAL IV PRN (17:15)
[2022-03-03] MEDS ORDERED: ASPIRIN 325 MG TAB PO ONE (17:15)
[2022-03-03] MEDS ORDERED: IOPAMIDOL 370 MG/ML 100 ML INFUS..BTL INJ ONE (17:19)
[2022-03-03 18:12] LABS: CLARITY,URINE CLEAR (CLEAR); COLOR,URINE YELLOW (YELLOW); KETONES,URINE NEGATIVE (NEGATIVE); LEUKOCYTE ESTERASE ,URINE SMALL (NEGATIVE); NITRITE,URINE POSITIVE (NEGATIVE); PROTEIN,URINE DIPSTICK NEGATIVE (NEGATIVE); URINE UROBILINOGEN 0.2 mg/dL (0.2 - 1)
[2022-03-03 18:13] LABS: BACTERIA,URINE MODERATE /HPF; EPITHELIAL CELLS,URINE MODERATE /LPF; WBC,URINE (MAN) 0-5 /HPF (0-5)
[2022-03-03] MEDS ORDERED: HYDRALAZINE HCL 20 MG/ML VIAL IV PRN (18:30)
[2022-03-03] MEDS ORDERED: PROMETHAZINE HCL (IM) 25 MG/ML VIAL IM ONE (19:15)
[2022-03-03] MEDS ORDERED: SODIUM CHLORIDE 0.9% 1000ML 1,000 ML IV SCH (19:30)
[2022-03-03 21:41] VITALS: BP 149/72
[2022-03-04] MEDS ORDERED: METOCLOPRAMIDE HCL 10 MG/2ML VIAL IV SCH (18:30)
== END 2022-03-03 21:20 | disposition other institution (70) ==
LOC: ER 15:30
DX: R53.1 Weakness (principal); I63.9 Cerebral infarction, unspecified; I10 Essential (primary) hypertension; E03.9 Hypothyroidism, unspecified; Z20.822 Contact with and (suspected) exposure to COVID-19; R94.31 Abnormal electrocardiogram [ECG] [EKG]
CPT/HCPCS: 0223U; 36415; 70450; 70496; 70498; 71045; 80053; 81001; 83880; 84484; 85025; 85610; 85730; 93005; 94760; 99284; J0360; J2405; J2550; J2765; J7030; Q9967; U0002

== ENCOUNTER 2022-06-24 11:35 | Inpatient (IN) | payer MEDICARE ==
[~2022-06-24] VITALS: Ht 154.9 cm; Wt 77.1 kg
[2022-06-24] MEDS ORDERED: SODIUM CHLORIDE 0.9% 1000ML 1,000 ML IV SCH (12:00)
[2022-06-24 12:04] LABS: BASOPHILS # (AUTO) 0.1 (0.0-0.1); BASOPHILS % 0.6 % (0.0-1.0); EOSINOPHILS # (AUTO) 0.1 (0.0-0.4); EOSINOPHILS % 0.8 % (0.0-6.0); HEMATOCRIT 40.1 % (34.2-44.1); HEMOGLOBIN 12.6 g/dL (12.0-16.0); LYMPHOCYTES # (AUTO) 1.2 (1.0-3.2); LYMPHOCYTES % 12.5 % (18.0-39.1); MEAN CORPUSCULAR HEMOGLOBIN 29.9 pg (28-32); MEAN CORPUSCULAR HGB CONC 31.4 g/dL (31-35); MONOCYTES # (AUTO) 0.8 (0.2-0.8); MONOCYTES % 8.3 % (4.4-11.3); NEUTROPHILS # (AUTO) 7.3 (2.1-6.9); PLATELET COUNT 270 x10e3/uL (140-360); RED BLOOD COUNT 4.22 x10e6/uL (3.6-5.1)
[2022-06-24] MEDS ORDERED: IOPAMIDOL 370 MG/ML 100 ML INFUS..BTL INJ ONE (12:05)
[2022-06-24] MEDS ORDERED: SODIUM CHLORIDE 0.9% 100 ML ONE (12:06)
[2022-06-24 12:31] LABS: ALBUMIN 3.2 g/dL (3.5-5.0); ALBUMIN/GLOBULIN RATIO 0.8 (0.8-2.0); ANION GAP 16.8 mmol/L (8-16); CALCIUM 8.5 mg/dL (8.4-10.2); CREATININE, SERUM 1.12 mg/dL (0.57-1.11); POTASSIUM 3.8 mmol/L (3.5-5.1)
[2022-06-24] MEDS ORDERED: MECLIZINE HCL 12.5 MG TAB PO ONE (13:15)
[2022-06-24 14:42] LABS: CLARITY,URINE CLEAR (CLEAR); COLOR,URINE YELLOW (YELLOW); KETONES,URINE NEGATIVE (NEGATIVE); LEUKOCYTE ESTERASE ,URINE NEGATIVE (NEGATIVE); NITRITE,URINE POSITIVE (NEGATIVE); PROTEIN,URINE DIPSTICK NEGATIVE (NEGATIVE)
[2022-06-24 14:43] LABS: URINE UROBILINOGEN 0.2 mg/dL (0.2 - 1)
[2022-06-24 14:58] LABS: BACTERIA,URINE MANY /HPF; EPITHELIAL CELLS,URINE FEW /LPF; RENAL EPITHELIAL CELLS,URINE FEW
[2022-06-24] MEDS ORDERED: ONDANSETRON HCL INJ 2MG/ML 2ML 2 MG/ML VIAL IV PRN (19:45)
[2022-06-24] MEDS ORDERED: ACETAMINOPHEN 325 MG TAB PO PRN (19:45)
[2022-06-24] MEDS ORDERED: POLYETHYLENE GLYCOL 3350 17 GM PACK PO PRN (19:45)
[2022-06-24] MEDS ORDERED: MECLIZINE HCL 12.5 MG TAB PO PRN (19:45)
[2022-06-24] MEDS ORDERED: HYDRALAZINE HCL 20 MG/ML VIAL IV PRN (19:45)
[2022-06-24] MEDS ORDERED: SODIUM CHLORIDE 0.9% 250ML 250 ML ONE (20:31)
[2022-06-24 21:00] VITALS: BP 153/69
[2022-06-24 22:38] VITALS: BP 153/69
[2022-06-25] VITALS (7 sets, daily range): BP systolic 129–151; BP diastolic 58–82
[2022-06-25 05:50] LABS: BASOPHILS # (AUTO) 0.1 (0.0-0.1); BASOPHILS % 0.8 % (0.0-1.0); EOSINOPHILS # (AUTO) 0.1 (0.0-0.4); EOSINOPHILS % 1.7 % (0.0-6.0); HEMATOCRIT 36.7 % (34.2-44.1); LYMPHOCYTES # (AUTO) 1.1 (1.0-3.2); LYMPHOCYTES % 17.4 % (18.0-39.1); MEAN CORPUSCULAR HEMOGLOBIN 29.6 pg (28-32); MEAN CORPUSCULAR HGB CONC 32.7 g/dL (31-35); MEAN CORPUSCULAR VOLUME 90.4 fL (81-99); MONOCYTES # (AUTO) 0.9 (0.2-0.8); MONOCYTES % 13.6 % (4.4-11.3); NEUTROPHILS # (AUTO) 4.2 (2.1-6.9); NEUTROPHILS % 65.9 % (38.7-80.0); PLATELET COUNT 202 x10e3/uL (140-360); RED BLOOD COUNT 4.06 x10e6/uL (3.6-5.1); RED CELL DISTRIBUTION WIDTH 13.9 % (11.7-14.4)
[2022-06-25 06:11] LABS: ANION GAP 15.2 mmol/L (8-16); CALCIUM 8.1 mg/dL (8.4-10.2); CREATININE, SERUM 0.82 mg/dL (0.57-1.11); POTASSIUM 3.2 mmol/L (3.5-5.1)
[2022-06-25 06:30] LABS: CHOL/HDL RATIO 1.9 (3.0-3.6); MAGNESIUM 1.8 MG/DL (1.3-2.1); PHOSPHORUS 3.2 MG/DL (2.3-4.7)
[2022-06-25 06:55] LABS: THYROID STIMULATING HORMONE 0.244 uIU/mL (0.350-4.940)
[2022-06-25] MEDS ORDERED: FAMOTIDINE 20 MG TAB PO SCH (07:30)
[2022-06-25] MEDS ORDERED: ATORVASTATIN CA20 MG PO (09:08)
[2022-06-25] MEDS: DOCUSATE SODIUM 100 MG CAP PO SCH ×2 (09:12→16:20)
[2022-06-25] MEDS: CHOLECALCIFEROL 400 UNIT TAB PO SCH (09:12)
[2022-06-25] MEDS: ZINC SULFATE 50 MG CAP PO SCH ×2 (09:12→16:20)
[2022-06-25] MEDS: ASCORBIC ACID 500 MG TAB PO SCH ×2 (09:12→16:20)
[2022-06-25] MEDS ORDERED: POTASSIUM CHLORIDE 20 MEQ TAB CR PO ONE (12:00)
[2022-06-25] MEDS: SODIUM CHLORIDE 0.9% 1000ML 1,000 ML IV SCH (12:54)
[2022-06-25] MEDS: BENZONATATE 100 MG CAP PO SCH ×3 (12:54→20:46)
[2022-06-25] MEDS: LABETALOL HCL 100 MG TAB PO SCH (16:20)
[2022-06-25] MEDS ORDERED: GUAIFENESIN 600 MG TAB PO PRN (16:45)
[2022-06-25] MEDS ORDERED: ENOXAPARIN INJ 80 MG/0.8 ML SYR SC SCH (17:00)
[2022-06-25] MEDS: ATORVASTATIN 40 MG TAB PO SCH (20:46)
[2022-06-26] VITALS (8 sets, daily range): BP systolic 103–158; BP diastolic 50–93
[2022-06-26] MEDS: SODIUM CHLORIDE 0.9% 1000ML 1,000 ML IV SCH ×3 (04:04→21:57)
[2022-06-26 05:09] LABS: BASOPHILS # (AUTO) 0.1 (0.0-0.1); BASOPHILS % 0.9 % (0.0-1.0); EOSINOPHILS # (AUTO) 0.3 (0.0-0.4); HEMATOCRIT 36.1 % (34.2-44.1); HEMOGLOBIN 12.1 g/dL (12.0-16.0); LYMPHOCYTES # (AUTO) 1.9 (1.0-3.2); LYMPHOCYTES % 33.5 % (18.0-39.1); MEAN CORPUSCULAR HEMOGLOBIN 30.1 pg (28-32); MEAN CORPUSCULAR HGB CONC 33.5 g/dL (31-35); MEAN CORPUSCULAR VOLUME 89.8 fL (81-99); MONOCYTES # (AUTO) 0.7 (0.2-0.8); MONOCYTES % 12.8 % (4.4-11.3); NEUTROPHILS # (AUTO) 2.6 (2.1-6.9); NEUTROPHILS % 46.3 % (38.7-80.0); PLATELET COUNT 205 x10e3/uL (140-360); RED BLOOD COUNT 4.02 x10e6/uL (3.6-5.1); RED CELL DISTRIBUTION WIDTH 13.8 % (11.7-14.4)
[2022-06-26 05:31] LABS: ANION GAP 14.7 mmol/L (8-16); CALCIUM 8.1 mg/dL (8.4-10.2); CREATININE, SERUM 0.75 mg/dL (0.57-1.11); MAGNESIUM 1.9 MG/DL (1.3-2.1); PHOSPHORUS 2.7 MG/DL (2.3-4.7); POTASSIUM 3.7 mmol/L (3.5-5.1)
[2022-06-26] MEDS: LEVOTHYROXINE SODIUM 88 MCG TAB PO SCH (05:56)
[2022-06-26] MEDS: AMOXICILLIN 250 MG CAP PO SCH ×3 (05:56→21:57)
[2022-06-26] MEDS: SALINE 0.65% NAS SOLN 1 SPRAY BTL SCH ×3 (09:00→21:00)
[2022-06-26] MEDS: ZINC SULFATE 50 MG CAP PO SCH ×2 (09:17→16:26)
[2022-06-26] MEDS: LABETALOL HCL 100 MG TAB PO SCH ×2 (09:17→16:27)
[2022-06-26] MEDS: PANTOPRAZOLE SOD 40 MG TABEC PO SCH (09:17)
[2022-06-26] MEDS: BENZONATATE 100 MG CAP PO SCH ×3 (09:17→21:56)
[2022-06-26] MEDS: ASCORBIC ACID 500 MG TAB PO SCH ×2 (09:17→16:26)
[2022-06-26] MEDS: ASPIRIN 81 MG ENTERIC COATED PO SCH (09:17)
[2022-06-26] MEDS: DOCUSATE SODIUM 100 MG CAP PO SCH ×2 (09:17→16:27)
[2022-06-26] MEDS: CHOLECALCIFEROL 400 UNIT TAB PO SCH (09:17)
[2022-06-26] MEDS: FLUTICASONE PROPIONATE NASAL SPRAY NS SCH ×2 (09:52→16:27)
[2022-06-26] MEDS: ATORVASTATIN 40 MG TAB PO SCH (21:57)
[2022-06-27 04:00] VITALS: BP 134/59
[2022-06-27] MEDS: AMOXICILLIN 250 MG CAP PO SCH (05:07)
[2022-06-27] MEDS: LEVOTHYROXINE SODIUM 88 MCG TAB PO SCH (05:07)
[2022-06-27] MEDS ORDERED: ALENDRONATE SODIUM 70 MG TAB PO SCH (06:00)
[2022-06-27 07:55] VITALS: BP 127/62
[2022-06-27] MEDS: CHOLECALCIFEROL 400 UNIT TAB PO SCH (08:53)
[2022-06-27] MEDS: ASCORBIC ACID 500 MG TAB PO SCH (08:53)
[2022-06-27] MEDS: ZINC SULFATE 50 MG CAP PO SCH (08:53)
[2022-06-27] MEDS: LABETALOL HCL 100 MG TAB PO SCH (08:54)
[2022-06-27] MEDS: DOCUSATE SODIUM 100 MG CAP PO SCH (08:55)
[2022-06-27] MEDS: SALINE 0.65% NAS SOLN 1 SPRAY BTL SCH (08:55)
[2022-06-27] MEDS: BENZONATATE 100 MG CAP PO SCH (08:55)
[2022-06-27] MEDS: ASPIRIN 81 MG ENTERIC COATED PO SCH (08:55)
[2022-06-27] MEDS: PANTOPRAZOLE SOD 40 MG TABEC PO SCH (08:55)
[2022-06-27] MEDS: FLUTICASONE PROPIONATE NASAL SPRAY NS SCH (08:55)
== END 2022-06-27 09:55 | disposition home or self-care (01) | DRG 178 ==
LOC: ER 11:47 → ERHOLD 15:13 → MED/SURG2 18:03 → OBSVTOIN 06-26 13:45
PROVIDERS: ADMIT Internal Medicine; ATTEND Internal Medicine
PROC: 8E0ZXY6 Isolation (ICD-10-PCS; principal; 2022-06-26)
DX: U07.1 COVID-19 (principal); G45.9 Transient cerebral ischemic attack, unspecified; N39.0 Urinary tract infection, site not specified; E11.40 Type 2 diabetes mellitus with diabetic neuropathy, unspecified; Z79.4 Long term (current) use of insulin; E03.9 Hypothyroidism, unspecified; R09.89 Other specified symptoms and signs involving the circulatory and respiratory systems; R42 Dizziness and giddiness; I67.1 Cerebral aneurysm, nonruptured; I10 Essential (primary) hypertension; Z86.73 Personal history of transient ischemic attack (TIA), and cerebral infarction without residual deficits; E86.0 Dehydration; E11.65 Type 2 diabetes mellitus with hyperglycemia; Z88.1 Allergy status to other antibiotic agents; I95.89 Other hypotension; H70.90 Unspecified mastoiditis, unspecified ear; J01.00 Acute maxillary sinusitis, unspecified; B96.89 Other specified bacterial agents as the cause of diseases classified elsewhere; E87.6 Hypokalemia
CPT/HCPCS: 36415; 70496; 70498; 70551; 71045; 80048; 80053; 80061; 81001; 82948; 83036; 83735; 84100; 84443; 84484; 85025; 87086; 87186; 93005; 94799; 95819; 99284; G0378; J0696; J2405; J7030; J7050; Q9967

== ENCOUNTER 2025-01-01 10:40 | Emergency (ER) | payer MEDICARE ==
[~2025-01-01] VITALS: Ht 154.9 cm; Wt 83.5 kg
[~2025-01-01 10:40] MED LIST changes: +AMOX TR-K CLV1 EAC2 PO; +ATORVASTATIN CA20 MG PO; +AUGMENTIN 500-1 EACH PO; +CEFPODOXIME PR200 MG PO; +PYRIDIUM100 MG PO
[2025-01-01 11:00] VITALS: RESP 18; TEMP 98.9
[2025-01-01 11:25] VITALS: PULSE 79; RESP 18; O2SAT 97
[2025-01-01 11:58] LABS: BASOPHILS % 0.7 % (0.0-1.0); EOSINOPHILS % 5.1 % (0.0-6.0); LYMPHOCYTES % 19.4 % (18.0-39.1); MONOCYTES % 11.0 % (4.4-11.3); NEUTROPHILS % 62.4 % (38.7-80.0); RED CELL DISTRIBUTION WIDTH 16.7 % (11.7-14.4)
[2025-01-01 12:09] LABS: CORONAVIRUS COVID-19 AG NEGATIVE (NEGATIVE)
[2025-01-01 12:25] LABS: EST GLOMERULAR FILTRATION RATE 31.0 ML/MIN (>=60)
[2025-01-01 12:29] VITALS: PULSE 82; RESP 18; O2SAT 99
[2025-01-01 12:30] VITALS: PULSE 82; RESP 18
[2025-01-01] MEDS: ALBUTEROL/IPRATROPIUM 3 ML NEB NEB ONE (12:30)
[2025-01-01 14:00] VITALS: PULSE 80; O2SAT 97
[2025-01-01] MEDS ORDERED: VENTOLIN HFA18 GM INH (14:12)
== END 2025-01-01 14:25 | disposition home or self-care (01) ==
LOC: ER 11:13
DX: R05.9 Cough, unspecified (principal); R06.2 Wheezing; B34.9 Viral infection, unspecified; I12.9 Hypertensive chronic kidney disease with stage 1 through stage 4 chronic kidney disease, or unspecified chronic kidney disease; E11.22 Type 2 diabetes mellitus with diabetic chronic kidney disease; N18.9 Chronic kidney disease, unspecified; K44.9 Diaphragmatic hernia without obstruction or gangrene; E03.9 Hypothyroidism, unspecified; Z11.52 Encounter for screening for COVID-19; Z86.73 Personal history of transient ischemic attack (TIA), and cerebral infarction without residual deficits; Z95.810 Presence of automatic (implantable) cardiac defibrillator; Z87.19 Personal history of other diseases of the digestive system
CPT/HCPCS: 36415; 71046; 80053; 83880; 85025; 94640; 94799; 99284

== ENCOUNTER 2025-01-29 09:52 | Emergency (ER) | payer MEDICARE ==
[~2025-01-29] VITALS: Ht 154.9 cm; Wt 82.1 kg
[~2025-01-29 09:52] MED LIST changes: +VENTOLIN HFA18 GM INH
[2025-01-29 10:20] VITALS: PULSE 67; RESP 19; TEMP 97.8
[2025-01-29] MEDS: ONDANSETRON HCL INJ 2MG/ML 2ML 2 MG/ML VIAL IV STA (11:01)
[2025-01-29] MEDS: SODIUM CHLORIDE 0.9% 1000ML 1,000 ML IV STA (11:01)
[2025-01-29 11:09] LABS: BASOPHILS % 0.7 % (0.0-1.0); EOSINOPHILS % 5.5 % (0.0-6.0); LYMPHOCYTES % 26.0 % (18.0-39.1); MONOCYTES % 10.1 % (4.4-11.3); NEUTROPHILS % 57.3 % (38.7-80.0); RED CELL DISTRIBUTION WIDTH 15.1 % (11.7-14.4)
[2025-01-29 11:38] LABS: EST GLOMERULAR FILTRATION RATE 62.0 ML/MIN (>=60)
[2025-01-29] MEDS ORDERED: LEVSIN-SL0.125 MG SL (13:37)
[2025-01-29 13:56] LABS: LEUKOCYTE ESTERASE ,URINE NEGATIVE (NEGATIVE); PROTEIN,URINE DIPSTICK NEGATIVE (NEGATIVE); URINE UROBILINOGEN 0.2 mg/dL (0.2 - 1)
[2025-01-29 14:06] LABS: EPITHELIAL CELLS,URINE MODERATE /LPF
[2025-01-29] MEDS ORDERED: IOPAMIDOL 370 MG/ML 100 ML INFUS..BTL INJ ONE (14:17)
[2025-01-29 14:23] VITALS: BP 143/96; PULSE 72; RESP 19; O2SAT 100
== END 2025-01-29 14:25 | disposition home or self-care (01) ==
LOC: ER 10:15
DX: R10.30 Lower abdominal pain, unspecified (principal)
CPT/HCPCS: 36415; 74177; 80053; 81001; 82550; 83690; 83880; 84484; 85025; 93005; 99283; J7030; Q9967; J2405